=== PATIENT | female | born 1960 ===

== ENCOUNTER 2023-07-26 09:37 | Inpatient (IN) | payer MEDICARE ==
[~2023-07-26] VITALS: Ht 175.3 cm; Wt 106.9 kg
[2023-07-26] MEDS ORDERED: AMLO-250 PO (10:52)
[2023-07-26] MEDS ORDERED: SUCR1TAB PO (11:07)
[2023-07-26] MEDS ORDERED: LEVO125C4 PO (11:07)
[2023-07-26] MEDS ORDERED: PANT40TA2 PO (11:07)
[2023-07-26] MEDS ORDERED: PRD20T PO (11:07)
[2023-07-26] MEDS ORDERED: APIX5TAB PO (11:07)
[2023-07-26] MEDS ORDERED: ACHD5005 PO (11:07)
[2023-07-26] MEDS ORDERED: METO50TA7 PO (11:07)
[2023-07-26] MEDS ORDERED: SERT-413 PO (11:07)
[2023-07-26] MEDS ORDERED: MULT-1136 PO (11:07)
[2023-07-26] MEDS ORDERED: ROPI0.5T37 PO (11:07)
[2023-07-26 11:55] VITALS: BP 147/91
[2023-07-26] MEDS ORDERED: MELATONIN 3 MG TABLET PO PRN (12:00)
[2023-07-26] MEDS ORDERED: DOCUSATE SODIUM 100 MG CAPSULE PO PRN (12:00)
[2023-07-26] MEDS ORDERED: guaiFENesin/CODEINE 10ML UDC PO PRN (12:00)
[2023-07-26] MEDS ORDERED: CALCIUM CARBONATE 500 MG CHEW TABLET PO PRN (12:00)
[2023-07-26] MEDS ORDERED: ALPRAZolam 0.25 MG TABLET PO PRN (12:00)
[2023-07-26] MEDS ORDERED: BISACODYL 10 MG SUPPOSITORY PR PRN ×2 (12:00→12:15)
[2023-07-26] MEDS ORDERED: ONDANSETRON 4 MG ORAL DISSOLVE TABLET PO PRN (12:00)
[2023-07-26] MEDS ORDERED: LACTULOSE SYRUP 10GM/15ML 30ML UDC PO PRN (12:00)
[2023-07-26] MEDS ORDERED: diphenhydrAMINE 25 MG TABLET PO PRN (12:00)
[2023-07-26] MEDS ORDERED: LOPERAMIDE 2 MG CAPSULE PO PRN (12:00)
[2023-07-26] MEDS ORDERED: Sodium Phosphate/Sodium Biphosphate ADULT enema PR PRN (12:00)
--- NOTE | 2023-07-26 12:00 | PM&R Post Admission Assessment ---
PM&R HP Date of Visit: Jul 26, 2023 Time of Visit: 13:00 History of Present Illness Chief complaint: Severe weakness from exacerbation of CIDP with recent severe hyponatremia of 122 and elevated TSH of 22 and severe anemia requiring transfusion with A-fib HPI: This is a 63-year-old female with no primary care provider but she does see Dr. Horne neurologist in [place] who presented to [facility] on 07/18/2023 with severe weakness found to have hyponatremia of 122 and hypokalemia of 3.1 and anemia. TSH was found to be elevated at 22. She had a lengthy hospital course until insurance approval for inpatient rehab due to the fact that she lives at home alone but it is handicapped accessible housing. She has not had a BM for 9 days. She is very fearful of falling so she is self-limiting. She has maximum sit to stand and supervision for eating and grooming. She receives IVIG every 2 weeks and she does have a port placed. Her prior level of functioning is moving around with a rollator walker. We will need speech therapy for dysphagia. She does have a history of atrial fibrillation which was noted the day after admission. She maintains on oral anticoagulation. She did receive 1 unit of blood yesterday with good results. [facility] summary copied and pasted from Dr Alexandre: HTN (hypertension) ? Hypokalemia ? Weakness of both lower extremities ? Generalized muscle weakness ? Hyponatremia ? CIDP (chronic inflammatory demyelinating polyneuropathy) Resolved Hospital Problems Diagnosisl Date Resolved ? Confusion 07/26/2023 ? SVT (supraventricular tachycardia) 07/26/2023 Hospital Course: [place] 5[place] Jennifer SmallArial 5b is a [place] 5b 63 y[address] femaleArial 5b who was admitted to [facility] on [place] 3[facility] for evaluation and management ofworsening generalized weakness.Mrs. Small says that over the past two weeks her weakness of worsened. She says that she has generalized weakness however her legs are most weak. She has a history of CIDP and is currently receiving Immunoglobulin infusions for it. She says previously she has able to ambulate with a rolling walker but now she can no longer stand. She has had a lower back pain for the past two days but denies any recent trauma. She had alternating constipation and loose stools. She also have a long history of incontinence due to inability to sense the need to urinate. She denies any saddle anesthesia. She was seen in the ER and had a CT head that was negative. She was found to have a sodium of 122 and potassium of 2.5. she did admit to drinking a lot of ice tea. She will be admitted for continued treatments. 07/19: Patient is doing somewhat better unfortunately the patient has developed AF overnight. Also complaining of difficulty swallowing pills. No events overnight. 07/20: Cardiology consulted for new onset atrial fibrillation. Slight worsening of hyponatremia. We will continue with fluid restriction and start sodium chloride tablets. Repeat BMP tomorrow. Potassium repletion. 07/21: Relatively stable hemoglobin. Improvement in serum sodium and serum potassium. Improvement in breathing. Continue with oral prednisone at this time. Pending placement and insurance authorization. Wherever patient goes, she will require her IVIG infusion for 2 days which is every 2 weeks. 07/22: Improvement in patient's breathing. Improvement in serum sodium. Slightly downtrending hemoglobin for which I have ordered FOBT and lactulose to rule out occult GI bleed. Encourage patient to be more compliant with PT OT. 07/23: Uptrending hemoglobin. Slight improvement in serum sodium. Hypokalemia which was corrected by IV and oral repletion. IV repletion for hypomagnesemia. 07/24: O2 weaned down to 1 L. Patient is tolerating it well. Stable serum sodium. Uptrending hemoglobin. Later in the evening, I was notified through a phone call that her inpatient rehab insurance has been approved. Case management updated. 07/25: Patient is back to room air. Progressing well and in good spirits today. Anticipating discharge tomorrow for rehab. Updated the patient and family. 07/26: Stable and uptrending hemoglobin. Patient is feeling much better. She is on room air and has much improved appetite and outlook. Subsequently she was later discharged to rehab. Patient is to follow-up with PCP, cardiology, PT OT and urology. Repeat CBC and CMP at that time. Continue Eliquis for atrial fibrillation. I have discontinued aspirin due to increased risk of GI bleed given concomitant use of steroids and Eliquis. This was discussed with the patient. All of her questions were answered. Electrolytes were repleted before she left the facility so she is recommended to repeat CBC and CMP in 1 to 2 days. Discharge medications and new prescriptions: [address] Medication List START taking these medications [id number] mg Tablet, Delayed Release (E.C.) Commonly known as: PROTONIX Take 1 Tablet (40 mg) by mouth daily before breakfast. Signed by: Dr. Krystle Lozano MD Quantity: 30 Tablet Refills: 3 [id number] mg tablet Commonly known as: DELTASONE Take 2 Tablets (40 mg) by mouth daily with breakfast for 4 days, THEN 1.5 Tablets (30 mg) daily with breakfast for 4 days, THEN 1 Tablet (20 mg) daily with breakfast for 4 days, THEN 0.5 Tablets (10 mg) daily with breakfast for 4 days. Start taking on: July 26, 2023 Signed by: Dr. Krystle Lozano MD Quantity: 20 Tablet Refills: 0 [id number] mg/mL suspension Commonly known as: CARAFATE Take 10 mL (1 Gram) by mouth every 6 hours. Signed by: Dr. Krystle Lozano MD Quantity: 1200 mL Refills: 3 CONTINUE taking these medications amLODIPine5 mg tablet Commonly known as: NORVASC Take 1 Tablet (5 mg) by mouth daily. Signed by: Dr. Blane Noriega MD Quantity: 30 Tablet Refills: 11 apixaban5 mg tablet Commonly known as: ELIQUIS Take by mouth 2 times daily. Refills: 0 [id number]-[id number] mg tablet Commonly known as: NORCO Take 1 Tablet by mouth every 6 hours as needed for Pain, Moderate. Max Daily Amount: 4 Tablets Signed by: Dr. Michael Patel MD Quantity: 8 Tablet Refills: 0 [id number] mcg tablet Commonly known as: SYNTHROID Take 1 Tablet (125 mcg) by mouth daily in the morning. Signed by: Dr. Blane Noriega MD Quantity: 30 Tablet Refills: 11 metoprolol rasldnydj76 mg Extended Release 24 hour tablet Commonly known as: TOPROL XL Take 1 Tablet (50 mg) by mouth daily. Signed by: Dr. Blane Noriega MD Quantity: 30 Tablet Refills: 5 multivitamintablet Commonly known as: DAILY-PANCHO Take 1 Tablet by mouth daily. Refills: 0 rOPINIRole0.5 mg tablet Commonly known as: Requip Take 1 Tablet (0.5 mg) by mouth 3 times daily. Signed by: Dr. Blane Noriega MD Quantity: 90 Tablet Refills: 11 atwrqzlobb12 mg tablet Commonly known as: ZOLOFT Take 2 Tablets (100 mg) by mouth daily. Signed by: Dr. Blane Noriega MD Quantity: 60 Tablet Refills: 11 STOP taking these medications mg Tablet, Delayed Release (E.C.) Commonly known as: ECOTRIN EC ? CIDP (chronic inflammatory demyelinating polyneuropathy) ? Depression ? Difficult intravenous access ? Frequent urination at night ? Guillain Bray syndrome ? HTN (hypertension) ? Hyperlipidemia ? Stroke ? Tattoos ? Thyroid disease ? Uses walker ? Wears glasses HX CHOLECYSTECTOMY ? HX MULTIPLE TOOTH EXTRACTIONS ? HX PITUITARY SURGERY tumor removal ? HX THYROIDECTOMY ? MA INSJ TUNNELED CTR VAD W/SUBQ PORT AGE 3 YR/> Right 10/10/2019 CATHETER VENOUS ACCESS PLACEMENT RIGHT performed by Michael Patel MD at [facility] OR Past [id number] Hx Past Med/Social Hx: Reviewed Nursing Past Med/Soc Hx, Reviewed and Corrections made Patient Social History Marrital Status: Employed/Student: retired Alcohol Use: Denies Use Smoking Status: Former Smoker Past Medical History Cardiac: Atrial Fibrillation, High Cholesterol, Hypertension CIDP Gastrointestinal: Gastroesophageal Reflux Musculoskeletal: Arthritis, Fibromyalgia, Chronic Back Pain Endocrine: Hypothyroidsim Psychosocial: Sleep Difficulties PM&R Allergy/Meds/Data Review Allergies Coded Allergies: azithromycin (Verified Allergy, Unknown, 07/26/23) SWELLING nickel (Verified Allergy, Unknown, 07/26/23) TENDERNESS AND REDNESS Home Medications Scheduled Amlodipine Besylate (Amlodipine Besylate), 5 MG PO DAILY, (Reported) Apixaban (Eliquis), 5 MG PO BID, (Reported) Levothyroxine Sodium (Levothyroxine), 125 MCG PO DAILY @0600, (Reported) Metoprolol Succinate (Metoprolol Succinate), 50 MG PO DAILY, (Reported) Multivitamin (Multivitamin), 1 EACH PO DAILY, (Reported) Pantoprazole Sodium (Protonix), 40 MG PO DAILY @0600, (Reported) Ropinirole HCl (Ropinirole HCl), 0.5 MG PO TID, (Reported) Sertraline HCl (Sertraline HCl), 100 MG PO DAILY, (Reported) Sucralfate (Sucralfate), 1 GM PO Q6H, (Reported) Scheduled PRN Hydrocodone/Acetaminophen (Hydrocodone-Acetamin 5-325 mg), 1 TAB PO Q6H PRN for PAIN-MODERATE (5-7), (Reported) Miscellaneous Medications Prednisone (Prednisone), 0 PO, (Reported) Current Medications Current Medications Reviewed Review of Systems Constitutional: see HPI, malaise, weakness EENTM: no symptoms reported Respiratory: no symptoms reported Cardiovascular: no symptoms reported Gastrointestinal: constipation Genitourinary: incontinence Musculoskeletal: back pain, joint pain Skin: no symptoms reported Psychiatric/Neurological: Anxiety, Depressed All Other Systems Reviewed Negative Unless Noted: Yes Physical Exam Physical Exam Vital Signs Capillary Refill : Height, Weight, BMI Height: '" Weight: lbs. oz. kg; BMI Method: General Appearance: No Apparent Distress, WD/WN, Chronically ill, Obese Eyes: Bilateral Eye Normal Inspection, Bilateral Eye PERRL HEENT: PERRL/EOMI, Normal ENT Inspection, Pharynx Normal Neck: Full Range of Motion, Normal Inspection, Non Tender, Supple, Carotid Bruit Respiratory: Chest Non Tender, Lungs Clear, Normal Breath Sounds, No Accessory Muscle Use, No Respiratory Distress Cardiovascular: Regular Rate, Rhythm, No Edema, No Gallop, No JVD, No Murmur, Normal Peripheral Pulses Gastrointestinal: Normal Bowel Sounds, No Organomegaly, No Pulsatile Mass, Non Tender, Soft Back: Normal Inspection, No CVA Tenderness, No Vertebral Tenderness Extremity: Normal Capillary Refill, Normal Inspection, Normal Range of Motion (Except for weakness in the lower extremities), Non Tender, No Calf Tenderness, No Pedal Edema Neurologic/Psychiatric: Alert, Oriented x3, vehicle operator II-XII Norm as Tested, Abnormal Gait ( unable to ambulate), Depressed Affect, Motor Weakness ( lower extremities) Skin: Normal Color, Warm/Dry Lymphatic: No Adenopathy PM&R Medical Assessment & Plan REHAB/MEDICAL ASSESSMENT AND PLAN: REHAB IMPAIRMENT GROUP: Severe weakness from CIDP exacerbation ETIOLOGIC DIAGNOSIS: severe hyponatremia and hypokalemia and abnormal TSH The comorbidities that impact the patients function and/or functional outcome by: severe disability with CIDP receives IVIG every 2 weeks, fall risk, A-fib, hypothyroidism, electrolyte abnormality REHAB PLAN: The patient is being admitted to our comprehensive inpatient rehabilitation facility and can tolerate the intensity of service consisting of at least: 180 minutes of therapy a day, 5 out of 7 days a week Rehab treatment will consist of: PT and OT will focus on regaining function with use of assistive devices in order to regain function and stamina and ambulation and increase in ADLs The patient/family has a good understanding of our discharge process and will benefit from an interdisciplinary inpatient rehabilitation program. The patient has potential to make improvement and is in need of at least two of the following multidisciplinary therapies including but not limited to physical, occupational, speech, and prosthetics and orthotics. Additionally the patient will need services from respiratory, nutritional services, wound care, psychology, etc. (Customize this to each patient). Given the patients complex condition and risk of further medical complications, rehabilitation services cannot be safely or effectively provided at a lower level of care such as a jail facility. BARRIERS TO DISCHARGE: severe weakness unable to ambulate ESTIMATED LOS: 10 days DISPOSITION: home RELEVANT CHANGES SINCE PREADMISSION SCREENING: I have compared the patients medical and functional status at the time of the preadmission screening and there are: no changes PROGNOSIS: fair REHABILITATION GOALS: 1. PT and OT will focus on regaining function with use of assistive devices in order to regain function and stamina and ambulation and increase in ADLs All the above goals were reviewed with the patient and he/she is in agreement. By signing this document, I acknowledge that I have personally performed a full physical examination on this patient within 24 hours of admission to this inpatient rehabilitation facility and have determined the patient to be able to tolerate the above course of treatment at an intensive level for a reasonable period of time. I will be completing a detailed individualized Plan of Care for this patient by day #4 of the patients stay based upon the Preadmission Screen, the Post-Admission Evaluation, and the therapy evaluations. Admission Dx/Comorbidities: (1) CIDP (chronic inflammatory demyelinating polyneuropathy) ICD Codes: G61.81 - Chronic inflammatory demyelinating polyneuritis Assessment/Plan Assessment and Plan Assess & Plan/Chief Complaint Assessment: Severe weakness from CIDP exacerbation on prednisone taper dose and will receives IVIG every 2 weeks Chronic atrial fibrillation Anemia requiring transfusion on 07/25/2023 On oral anticoagulation for stroke prophylaxis Hypertension GERD Recent hyponatremia Recent hypokalemia Obesity Severe constipation no BM for 9 days upon arrival Plan: Bowel regimen PT and OT Home meds Prednisone taper dose Monitor closely KONG TY DO Jul 26, 2023 12:00
[2023-07-26] MEDS ORDERED: predniSONE 20 MG TABLET PO SCH (12:30)
[2023-07-26] MEDS ORDERED: LACTULOSE SYRUP 10GM/15ML 30ML UDC PO NR (12:30)
[2023-07-26] MEDS ORDERED: HYDROcodone/ACETAMINOPHEN 5 MG/325 MG TABLET PO PRN (12:30)
[2023-07-26] MEDS ORDERED: BISACODYL 10 MG SUPPOSITORY PR NR (12:30)
[2023-07-26] MEDS ORDERED: SENNA W/DOCUSATE TABLET PO NR (12:30)
[2023-07-26] MEDS: SUCRALFATE 1 GM TABLET PO SCH ×2 (14:11→19:14)
[2023-07-26] MEDS: rOPINIRole 0.25 MG TABLET PO SCH ×2 (14:12→20:52)
[2023-07-26 19:58] VITALS: BP 132/72
[2023-07-26] MEDS: DOCUSATE SODIUM 100 MG CAPSULE PO SCH (20:52)
[2023-07-26] MEDS: APIXABAN 5 MG TABLET PO SCH (20:52)
[2023-07-26] MEDS: SENNA W/DOCUSATE TABLET PO SCH (20:52)
[2023-07-27] MEDS: SUCRALFATE 1 GM TABLET PO SCH ×4 (00:29→17:10)
--- NOTE | 2023-07-27 05:26 | PM&R Progress Note ---
Subjective HPI/CC On Admission Date Seen by Provider: Jul 27, 2023 Time Seen by Provider: 10:30 Subjective/Events-last exam 07/27/2023: Patient doing a lot better No pain is reported No falls Weakness is profound Requesting team patch Miconazole powder will be initiated Review of Systems General: Fatigue, Malaise Gastrointestinal: Constipation Neurological: Weakness Objective Exam Vital Signs Vital Signs Date Time Temp Pulse Resp B/P (MAP) Pulse Ox O2 Delivery O2 Flow Rate FiO2 07/27/23 14:05 72 18 96 Room Air 07/27/23 12:32 0.00 07/27/23 08:31 36.1 110/72 (85) Capillary Refill : General Appearance: No Apparent Distress, WD/WN, Chronically ill, Obese HEENT: PERRL/EOMI, Normal ENT Inspection, Pharynx Normal Neck: Full Range of Motion, Normal Inspection, Non Tender, Supple, Carotid Bruit Respiratory: Chest Non Tender, Lungs Clear, Normal Breath Sounds, No Accessory Muscle Use, No Respiratory Distress Cardiovascular: Regular Rate, Rhythm, No Edema, No Gallop, No JVD, No Murmur, Normal Peripheral Pulses Gastrointestinal: Normal Bowel Sounds, No Organomegaly, No Pulsatile Mass, Non Tender, Soft Back: Normal Inspection, No CVA Tenderness, No Vertebral Tenderness Extremity: Normal Capillary Refill, Normal Inspection, Normal Range of Motion (Except for weakness in the lower extremities), Non Tender, No Calf Tenderness, No Pedal Edema Neurologic/Psychiatric: Alert, Oriented x3, national sales executive II-XII Norm as Tested, Abnormal Gait ( unable to ambulate), Depressed Affect, Motor Weakness ( lower extremities) Skin: Normal Color, Warm/Dry Lymphatic: No Adenopathy Results/Procedures Lab Laboratory Tests 07/27/23 06:15 Patient resulted labs reviewed. FIM Transfers Therapy Code Descriptions/Definitions Functional [place] Measure: 0=Not Assessed/NA 4=Minimal Assistance 1=Total Assistance 5=Supervision or Setup 2=Maximal Assistance 6=Modified [place] 3=Moderate Assistance 7=Complete IndependenceSCALE: Activities may be completed with or without assistive devices. 2-Zpxztcmiqe-sweegui completes the activity by him/herself with no assistance from a helper. 5-Set-up or Clean-up Assistance-helper sets up or cleans up; patient completes activity. [place] assists only prior to or following the activity. 4-Supervision or Touching Assistance-helper provides verbal cues and/or touching/steadying and/or contact guard assistance as patient completes activity. Assistance may be provided throughout the activity or intermittently. 3-Partial/Moderate Assistance-helper does LESS THAN HALF the effort. [place] lifts, holds or supports trunk or limbs, but provides less than half the effort. 2-Substantial/Maximal Assistance-helper does MORE THAN HALF the effort. [place] lifts or holds trunk or limbs and provides more than half the effort. 1-Gkqlrxwfn-rvydje does ALL the effort. Patient does none of the effort to complete the activity. Or, the assistance of 2 or more helpers is required for the patient to complete the activity. If activity was not attempted, code reason: 7-Patient Refused. 9-Not Applicable-not attempted and the patient did not perform the activity before the current illness, exacerbation or injury. 10-Not Attempted due to Environmental Limitations-(lack of equipment, weather restraints, etc.). 88-Not Attempted due to Medical Conditions or Safety Concerns. Assessment/Plan Assessment and Plan Assess & Plan/Chief Complaint Assessment: Severe weakness from CIDP exacerbation on prednisone taper dose and will receives IVIG every 2 weeks Chronic atrial fibrillation Anemia requiring transfusion on 07/25/2023 On oral anticoagulation for stroke prophylaxis Hypertension GERD Recent hyponatremia Recent hypokalemia Obesity Severe constipation no BM for 9 days upon arrival Resolved Plan: Bowel regimen PT and OT Home meds Prednisone taper dose Monitor closely 07/27/2023: Replace potassium Supportive care Fall risk (1) CIDP (chronic inflammatory demyelinating polyneuropathy) KONG TY DO Jul 27, 2023 05:26
[2023-07-27] MEDS: LEVOTHYROXINE 125 MCG TABLET PO SCH (06:40)
[2023-07-27] MEDS: PANTOPRAZOLE 40 MG TABLET PO SCH (06:40)
[2023-07-27] MEDS: THERAPEUTIC MULTIVITAMIN W/MINERALS TABLET PO SCH (06:41)
[2023-07-27 06:43] LABS: ALBUMIN 3.3 GM/DL (3.2-4.5); BILIRUBIN,TOTAL 0.6 MG/DL (0.1-1.0); CREATININE SERUM 0.86 MG/DL (0.60-1.30); POTASSIUM 3.3 MMOL/L (3.6-5.0); TOTAL PROTEIN 8.6 GM/DL (6.4-8.2)
[2023-07-27 06:49] LABS: BASOPHILS % (AUTO) 0 % (0-10); EOSINOPHILS % (AUTO) 1 % (0-10); HEMATOCRIT 33 % (35-52); LYMPHOCYTES # (AUTO) 1.7 10^3/uL (1.0-4.0); LYMPHOCYTES % (AUTO) 26 % (12-44); MEAN CORPUSCULAR HEMOGLOBIN 33 pg (25-34); MEAN CORPUSCULAR HGB CONC 34 g/dL (32-36); MEAN CORPUSCULAR VOLUME 97 fL (80-99); MEAN PLATELET VOLUME 9.3 fL (9.0-12.2); MONOCYTES # (AUTO) 0.4 10^3/uL (0.0-1.0); MONOCYTES % (AUTO) 6 % (0-12); NEUTROPHILS # (AUTO) 4.3 10^3/uL (1.8-7.8); NEUTROPHILS % (AUTO) 66 % (42-75); PLATELET COUNT 204 10^3/uL (130-400); WHITE BLOOD COUNT 6.4 10^3/uL (4.3-11.0)
[2023-07-27 08:31] VITALS: BP 110/72
[2023-07-27] MEDS: SENNA W/DOCUSATE TABLET PO SCH ×2 (08:40→21:03)
[2023-07-27] MEDS: rOPINIRole 0.25 MG TABLET PO SCH ×3 (08:40→21:03)
[2023-07-27] MEDS: amLODIPine 5 MG TABLET PO SCH (08:40)
[2023-07-27] MEDS: DOCUSATE SODIUM 100 MG CAPSULE PO SCH ×2 (08:41→21:03)
[2023-07-27] MEDS: APIXABAN 5 MG TABLET PO SCH ×2 (08:41→21:03)
[2023-07-27] MEDS: ACETAMINOPHEN 325 MG TABLET PO PRN ×2 (08:46→17:10)
[2023-07-27] MEDS: SERTRALINE 50 MG TABLET PO SCH (08:46)
--- NOTE | 2023-07-27 10:42 | Occupational Therapy Eval ---
OT Evaluation-General/PLF Medical Diagnosis Admission Date Jul 26, 2023 at 11:50 Medical Diagnosis: AE CIPD Onset Date: Jul 17, 2023 Therapy Diagnosis Therapy Diagnosis: decreased ADL status Precautions Precautions/Isolations: Fall Prevention, Standard Precautions, Pressure Ulcer Referral Physician: Kanwal Blair Reason: Evaluation/Treatment Medical History Additional Medical History Afib, HTN, hyponatremia, CIPD, depression, guillain barre syndrome, HLD, pituitary tumor removal, thyroidectomy Current History 07/17/23 admitted to OSH with increased weakness x2 weeks. Pt transferred to [facility] 07/26/23 Social History Home: Single Level Current Living Status: Alone Entry Into Home: Level Entry ADL-Prior Level of Function SCALE: Activities may be completed with or without assistive devices. 5-Qjgtbksnhx-vyuegbo completes the activity by him/herself with no assistance from a helper. 5-Set-up or Clean-up Assistance-helper sets up or cleans up; patient completes activity. [place] assists only prior to or following the activity. 4-Supervision or Touching Assistance-helper provides verbal cues and/or touching/steadying and/or contact guard assistance as patient completes activity. Assistance may be provided throughout the activity or intermittently. 3-Partial/Moderate Assistance-helper does LESS THAN HALF the effort. [place] lifts, holds or supports trunk or limbs, but provides less than half the effort. 2-Substantial/Maximal Assistance-helper does MORE THAN HALF the effort. [place] lifts or holds trunk or limbs and provides more than half the effort. 2-Lsloupnem-fcnqwu does ALL the effort. Patient does none of the effort to complete the activity. Or, the assistance of 2 or more helpers is required for the patient to complete the activity. If activity was not attempted, code reason: 7-Patient Refused. 9-Not Applicable-not attempted and the patient did not perform the activity before the current illness, exacerbation or injury. 10-Not Attempted due to Environmental Limitations-(lack of equipment, weather restraints, etc.). 88-Not Attempted due to Medical Conditions or Safety Concerns. ADL PLOF Comments Pt reports having assistance from friend 2x/day, and home health for IV every 2 weeks. She primarily stays in her lift chair during day and night. She feels like she has became progressively weaker over the last ~7 weeks, having increased difficulty ambulating. Pt unable to make it into bathroom due to urgency and incontinence of bowel/bladder. She wears a diaper and sits on towels. After incontinent episode, pt indicates she can clean and change herself. Pt doesn't complete footwear herself, requiring total assist with socks/shoes. She only wears shoes when she goes to appointments and her friend puts them on for her. She wears long nightgowns that she is able to change herself. Pt indicates she hasn't had an appetite for some time, so she hasn't been preparing meals at home, but is able to drink ensure and protein drinks that people bring her. She only completes sponge baths at her chair due to fear of falling and difficulty getting into bathroom. Prior to ~7 weeks ago, pt was able to use 4WW around house. She owns a light weight manual w/c but has difficulty managing it on her carpet. She has used the w/c in the kitchen while cooking. She has a scooter but hasn't used it for a while. The friend that comes over 2x/day typically helps with trash, washing soiled towels, walking dog, footwear and providing pt with ensure/protein drinks. Pt eventually would like to be able to get into her shower at home, it is a walk in shower with small built in seat. Pt has a tall toilet with handles. Self Care: Needed Some Help Functional Cognition: Independent DME/Equipment Comments lift chair, light weight manual w/c, 4WW, scooter, reachers, toilet riser with handles OT Current Status Subjective Pt agreeable to OT Tx. States she didn't have much therapy at the other hospital since she wasn't motivated. Pt appears motivated to get better and states goals of returning home and eventually getting into her shower at home again instead of sponge baths. Mental Status/Objective Patient Orientation: Person, Place, Situation Current Glasses/Contacts: Yes Hearing Aids: No Dentures/Partials: No Hand Dominance: Right Upper Extremity ROM BUE shoulder flexion to approx 140 degrees, WFL at elbows/wrist/fingers. Pt reports increased tightness in b/l shoulder blades with bringing arms out in front of her in midline position/horizontal adduction. Upper Extremity Coordination WFL Upper Extremity Sensation Pt reports "random" sensation changes in UEs Upper Extremity Strength grossly 3-/5 ADL-Treatment Eating (QC): 5 Oral Hygiene (QC): 4 (SBA seated at sink. 1VC for initiation of task.) Shower/Bathe Self (QC): 1 (sit to stand lift required for performing pericare/posterior hygiene. ) Upper Body Dressing (QC): 3 Lower Body Dressing (QC): 1 (Sit to stand lift required for pant hike. Dependent at bed level.) On/Off Footwear (QC): 1 Toileting Hygiene (QC): 1 (Dependent at bed level. sit to stand lift would be required if pt is up in chair.) Other Treatments Pt in bed, agreeable to OT evaluation. Pt provided information about PLOF and home set up and participated in UE Screen. Post eval, pt in bed, call light in reach and all needs met. Education OT Patient Education: Correct positioning, Modified ADL techniques, Progress toward Goal/Update tx plan, Purpose of tx/functional activities, Rehab process Teaching Recipient: Patient Teaching Methods: Discussion Response to Teaching: Verbalize Understanding BIMS CAM BIMS Expression of Ideas and Wants: Without Difficulty Understanding Verbal Content: Understands Brief Interview/Mental Status: Yes IRF KATE BIMS: IRF KATE BIMS Response (Comments) Value Repitition of Three Words Three 3 Recalls Socks Yes, No Cue Required 2 Recalls Blue Yes, No Cue Required 2 Recalls Bed Yes, After Cueing 1 Year Correct 3 Month Missed by 6 Days/1 Month 1 Day Correct 1 Total 13 Should Staff Asses[address] Mental [address] No CAM Mental Status Change/Baseline: 0 Inattention: 0 Disorganized thinkin Altered level of consciousness: 0 OT Short Term Goals Short Term Goals Time Frame: Aug 12, 2023 Shower/bathe self: 3 Upper body dressin Lower body dressin OT Sales Rep Goals Sales Rep Goals Time Frame: Aug 21, 2023 Eating (QC): 6 Oral Hygiene (QC): 6 Toileting Hygiene (QC): 6 Shower/Bathe Self (QC): 5 Upper Body Dressing (QC): 5 Lower Body Dressing (QC): 5 On/Off Footwear (QC): 3 Additional Goals: 1-Demonstrate ADL Tasks, 2-Verbalize Understanding, 3- ImproveStrength/Pepe 1=Demonstrate adherence to instructed precautions during ADL tasks. 2=Patient will verbalize/demonstrate understanding of assistive devices/modifications for ADL. 3=Patient will improve strength/tolerance for activity to enable patient to perform ADL's. OT Education/Plan Problem List/Assessment Assessment: Decreased Activ Tolerance, Decreased UE Strength, Impaired Funct Balance, Impaired I ADL's, Impaired Self-Care Skills Discharge Recommendations Plan/Recommendations: Continue POC Equpiment Recommendations-D/C: Bath Chair, Bedside Commode Treatment Plan/Plan of Care Patient would benefit from OT for education, treatment and training to promote independence in ADL's, mobility, safety and/or upper extremity function for ADL's. Plan of Care: ADL Retraining, Functional Mobility, Group Exercise/Act as Ind, UE Funct Exercise/Act Treatment Duration: Aug 21, 2023 Frequency: At least 5 of 7 days/Wk (IRF) Estimated Hrs Per Day: 1 hour per day Agreement: Yes Rehab Potential: Fair Time Start Time: 07:30 Stop Time: 08:00 DATE: Jul 27, 2023 Total Time Billed (hr/min): 30 Billed Treatment Time 1ANDRE ADDISON OT Jul 27, 2023 10:42
[2023-07-27] MEDS: NICOTINE 21 MG PATCH TD SCH (12:05)
--- NOTE | 2023-07-27 13:02 | Physical Therapy Evaluation ---
PT Evaluation-General Medical Diagnosis Admission Date Jul 26, 2023 at 11:50 Medical Diagnosis: Acute exacerbation of Chronic Inflammatory Demyelinating Polyneuropathy Onset Date: Jul 17, 2023 Therapy Diagnosis Therapy Diagnosis: proximal weakness, impaired transfers/upright mobility, endurance deficits Precautions Precautions/Isolations: Fall Prevention, Standard Precautions, Pressure Ulcer Weight Bear Status Weight Bearing/Tolerated Weight Bearing/Tolerated Referral Physician: Kanwal Reason for Referral: Evaluation/Treatment Medical History Additional Medical History hx of CIDP - receives immunoglabulin infusions. Incontinent of bowel/bladder at PLOF. Depression, yponatremia, anemia, metabolic encephalopathy, Afib, Guillain [place] Syndrome, HTN, HLD CVA, thyroid disease. PSH: cholecystectomy, pituitary tumor removal, thyroidectomy. Social History Home: Single Level Current Living Status: Alone Entry Into Home: Level Entry PT Steps Into Home: 0 PT Steps Inside Home: 0 Prior Prior Level of Function SCALE: Activities may be completed with or without assistive devices. 0-Omvcwabehg-ziasaae completes the activity by him/herself with no assistance from a helper. 5-Set-up or Clean-up Assistance-helper sets up or cleans up; patient completes activity. [place] assists only prior to or following the activity. 4-Supervision or Touching Assistance-helper provides verbal cues and/or touching/steadying and/or contact guard assistance as patient completes activity. Assistance may be provided throughout the activity or intermittently. 3-Partial/Moderate Assistance-helper does LESS THAN HALF the effort. [place] lifts, holds or supports trunk or limbs, but provides less than half the effort. 2-Substantial/Maximal Assistance-helper does MORE THAN HALF the effort. [place] lifts or holds trunk or limbs and provides more than half the effort. 5-Nmnyegaqp-fkblhm does ALL the effort. Patient does none of the effort to complete the activity. Or, the assistance of 2 or more helpers is required for the patient to complete the activity. If activity was not attempted, code reason: 7-Patient Refused. 9-Not Applicable-not attempted and the patient did not perform the activity before the current illness, exacerbation or injury. 10-Not Attempted due to Environmental Limitations-(lack of equipment, weather restraints, etc.). 88-Not Attempted due to Medical Conditions or Safety Concerns. Bed Mobility: 6 Transfers (B,C,W/C): 6 Gait: 6 (short household distances only (50' or less with 4WW). ) Stairs: 9 (States unable to go up even a curb, even with assist of her friend who takes her to appointments.) Wheelchair Mobility: 6 (in lightweight w/c in her home. Has motorized scooter for community mob.) Indoor Mobility (Ambulation): Independent Stairs: Dependent Prior Devices Use: Manual wheelchair, Mechanical lift, Motorized scooter, Walker Prior Device Use: Has a crocodile farmer and tall toilet. States she probably needs a B SC. Patient states she lives in her lift chair (including sleeping). Has not showered in 2 years - takes sponge baths. She states she typically only wears socks; she does not wear shoes because she cannot put them on (dependent with help of friend for [address] [employer] Clerk shoes). She states she does not drive and a friend takes her to all appointments. Her friend comes over 2x/day - helps with laundry and helps take care of patient's dog. PT Evaluation-Current Subjective Patient asking if she can get a lift chair in her room - this therapist switched out recliner for lift chair at patient's request. Stated she had 8.5/10 (L) thigh pain prior to PT - nsg had just given pain medication. Pain Section J - Health Conditions 1. Rarely or not at all 2. Occasionally 3. Frequently 4. Almost constantly 8. Unable to answer Pain Effect on Sleep: 1 Pain Interference with Therapy: 1 Pain Interference w/Day-to-Day: 1 Pt/Family Goals Patient hopes to return to her previous living situation of living along with assist of friend as needed. Objective Patient Orientation: Person, Place Attachments: Oxygen (1L per nc) ROM/Strength ROM Upper Extremities Deferred to OT ROM Lower Extremities Ankle/knee AROM WFL. Hip PROM/AAROM WFL. Strength Upper Extremities Deferred to OT Strength Lower Extremities (B) Ankle DF 4/5. Ankle PF 4/5. Hip abd/add 3/5 (B). Hip flexor weakness of 2- /5 (B) in supine and sitting. Quads 2-/5 (B) in supine and sitting. Core weakness noted sitting EOB - required (B) UE support in sitting. Unable to activate hip extensors/back extensors to come into standing -- proximal weakness. Integumentary/Posture Bowel Incontinence: Yes Bladder Incontinence: Yes Sensory Vision: Wears Glasses Hearing: Functional Hand Dominance: Right Sensation Right Lower Extremit: Impaired Sensation Left Lower Extremity: Impaired Sensation Lower Extremities Patient states she has numbness from toes up to midshin (B) LE's. Transfers Roll Left & Right (QC): 4 (SBA-CGA with cues to use bedrail and push with opposite LE) Sit to Lying (QC): 2 (Max (A) of 1) Lying to Sitting/Side of Bed(Q: 2 (Max (A) of 1) Sit to Stand (QC): 1 (Sit>stand lift utilized /c (A) of 2. ) Chair/Ivt-fr-Ppsid Xfer(QC): 1 (using sit>stand lift) Toilet Transfer (QC): 88 Car Transfer (QC): 88 Gait Does the Patient Walk?: No and Walking Goal IS indicated Mode of Locomotion: Both Anticipated Mode of Locomotion: Both Walk 10 feet (QC): 88 Walk 50 ft with 2 Turns(QC): 88 Walk 150 ft (QC): 88 Walking 10ft/uneven surface-QC: 88 Distance: unable to ambulate at this time Wheelchair Training Does the Pt Use a Wheelchair?: Yes Distance: 60' x 2 Wheel 50 ft with 2 turns (QC): 4 (cues to navigating tight turns, O2 tank assist.) Wheel 150 ft (QC): 88 (fatigue does not allow for 150' distance.) Type of Wheelchair: Manual propels manual w/c using (B) UE's. Portable O2 tank assist. W/C cushion in seat. Mild SOB requiring rest break /p 60'. O2 sats 96-98% on 1L O2. Stairs 1 Step (curb) (QC): 88 4 Steps (QC): 9 12 Steps (QC): 9 Balance Sitting Static: Fair Sitting Dynamic: Poor Standing Static: Poor Standing Dynamic: Poor Picking up an Object (QC): 88 Special Test Comments KU Standing Balance Scale: 0/5 KU Sitting Balance Scale: 2/5 Treatment Standing lift utilized x 2 for transfer bed>w/c and w/c to lift chair. Assessment/Needs 63 year old female with Chronic Inflammatory Demyelinating Polyneuropathy. Also has hx of Guillain Wind[place], CVA. Her PLOF = min (A) with some ADL's. Has significant mobility deficits at this time and requires a mechanical lift for transfers and a w/c for mobility. Has significant LE and proximal core weakness. Is a significant fall risk at this time. Patient would benefit from ARU therapy interventions to maximize her strength/endurance/functional mobility and safety to improve functional independence and return to her prior living situation at as high a functional level as possible. . Rehab Potential: Fair Post Rehab Potential-Barriers: possible need skilled caregiver Equipment Needs TBD PT Correction Goals Correction Goals PT Correction Goals Time Frame: Aug 17, 2023 Roll Left to Right (QC): 6 (in bed or recliner) Sit to Lying (QC): 6 (in bed or recliner.) Lying-Sitting on Side/Bed(QC): 4 Sit to Stand (QC): 4 Chair/Kuy-cv-Zrjmt Xfer(QC): 4 Toilet/Commode Transfer (QC): 4 Car Transfer (QC): 4 Does the Patient Walk: No and Walking Goal IS indicated Walk 10 feet (QC): 4 (with FWW or 4WW) Walk 10ft-Uneven Surface(QC): 4 Walk 50ft with 2 Turns (QC): 4 Walk 150 ft (QC): 9 Does the Pt use WC or Scooter?: Yes Wheel 50 feet with 2 turns (QC: 6 Type: Manual Wheel 150 feet: 6 Type: Motorized 1 Step (curb) (QC): 3 4 Steps (QC): 9 12 Steps (QC): 9 Picking up an Object (QC): 4 PT Plan Problem List Problem List: Activity Tolerance, Functional Strength, Safety, Balance, Gait, Transfer, Bed Mobility, ROM, Other (W/C mobility) Treatment/Plan Treatment Plan: Continue Plan of Care Treatment Plan: Bed Mobility, Education, Functional Activity Pepe, Functional Strength, Group Therapy, Gait, Safety, Therapeutic Exercise, Transfers, Other (W/C mobility) Treatment Duration: Aug 17, 2023 Frequency: At least 5 of 7 days/Wk (IRF) Estimated Hrs Per Day: 1.5 hours per day Safety Risks/Education Patient Education: Transfer Techniques Teaching Recipient: Patient Teaching Methods: Demonstration Response to Teaching: Reinforcement Needed Discharge Recommendations Target Placement TBD Time Time In: 900 Time Out: 1030 DATE: Jul 27, 2023 Total Billed Treatment Time: 90 Total Billed Treatment 9-9:30 EMV 9:30-10:30 co-treat with OT -- 3FA, 1W/C Esther Azevedo PT Jul 27, 2023 13:02
--- NOTE | 2023-07-27 13:16 | Occupational Ther Daily Note ---
OT Current Status-Daily Note Subjective Pt agreeable to therapy tx. She states she wants to get better to return home. Mental Status/Objective Attachments: Oxygen (1L NC) ADL-Treatment Therapy Code Descriptions/Definitions Functional [place] Measure: 0=Not Assessed/NA 4=Minimal Assistance 1=Total Assistance 5=Supervision or Setup 2=Maximal Assistance 6=Modified [place] 3=Moderate Assistance 7=Complete IndependenceSCALE: Activities may be completed with or without assistive devices. 7-Wglajpvfek-uunltak completes the activity by him/herself with no assistance from a helper. 5-Set-up or Clean-up Assistance-helper sets up or cleans up; patient completes activity. [place] assists only prior to or following the activity. 4-Supervision or Touching Assistance-helper provides verbal cues and/or touching/steadying and/or contact guard assistance as patient completes activity. Assistance may be provided throughout the activity or intermittently. 3-Partial/Moderate Assistance-helper does LESS THAN HALF the effort. [place] lifts, holds or supports trunk or limbs, but provides less than half the effort. 2-Substantial/Maximal Assistance-helper does MORE THAN HALF the effort. [place] lifts or holds trunk or limbs and provides more than half the effort. 7-Qqdxtavnv-rmnrea does ALL the effort. Patient does none of the effort to comp lete the activity. Or, the assistance of 2 or more helpers is required for the patient to complete the activity. If activity was not attempted, code reason: 7-Patient Refused. 9-Not Applicable-not attempted and the patient did not perform the activity before the current illness, exacerbation or injury. 10-Not Attempted due to Environmental Limitations-(lack of equipment, weather restraints, etc.). 88-Not Attempted due to Medical Conditions or Safety Concerns. Other Treatment OT/PT cotreat due to skill of 2 clinicians required which a vocational rehabilitation teacher could not perform in order to coordinate UE/LEs, decrease fall risk, and due to pt's limitations in strength, activity tolerance, mobility, and transfers. OT focused on UE placement, cues for sequencing and safety and ADLs, PT focused on LE placement, gross overall movement, transfers and mobility. Pt rolled in bed to remove purewick and complete posterior hygiene, dependent with toilet hygiene and clothing management. Pt transferred supine to sit EOB, attempted to stand at FWW, unsuccessfully. Sit to stand lift utilized to transfer from EOB to w/c. Pt propelled w/c around [facility] common area, 60' x2, she indicates she fatigues quickly requiring rest break. Pt returned to her room, completing sponge bath and grooming seated in w/c. Pt required total assist with sponge bath, sit to stand lift used to wash buttocks, total assist footwear and total assist LE dressing. SBA oral care. sit to stand lift utilized to transfer from w/c to recliner. Post tx, pt in recliner, call light in reach and all needs met. Education OT Patient Education: Correct positioning, Energy conservation, Modified ADL techniques, Progress toward Goal/Update tx plan, Purpose of tx/functional acti vities, Rehab process Teaching Recipient: Patient Teaching Methods: Discussion Response to Teaching: Verbalize Understanding OT Short Term Goals Short Term Goals Time Frame: Aug 12, 2023 Shower/bathe self: 3 Upper body dressin Lower body dressin OT Correction Goals Clerk Of Court Goals Time Frame: Aug 21, 2023 Acute change in mental status: 0 Inattention: 0 Disorganized thinkin Altered level of consciousness: 0 Eating (QC): 6 Oral Hygiene (QC): 6 Toileting Hygiene (QC): 6 Shower/Bathe Self (QC): 5 Upper Body Dressing (QC): 5 Lower Body Dressing (QC): 5 On/Off Footwear (QC): 3 Additional Goals: 1-Demonstrate ADL Tasks, 2-Verbalize Understanding, 3-Imp roveStrength/Pepe 1=Demonstrate adherence to instructed precautions during ADL tasks. 2=Patient will verbalize/demonstrate understanding of assistive devices/modifications for ADL. 3=Patient will improve strength/tolerance for activity to enable patient to perform ADL's. OT Education/Plan Problem List/Assessment Assessment: Decreased Activ Tolerance, Decreased UE Strength, Impaired Funct Balance, Impaired I ADL's, Impaired Self-Care Skills Discharge Recommendations Plan/Recommendations: Continue POC Treatment Plan/Plan of Care Patient would benefit from OT for education, treatment and training to promote independence in ADL's, mobility, safety and/or upper extremity function for ADL's. Plan of Care: ADL Retraining, Functional Mobility, Group Exercise/Act as Ind, UE Funct Exercise/Act Treatment Duration: Aug 21, 2023 Frequency: At least 5 of 7 days/Wk (IRF) Estimated Hrs Per Day: 1 hour per day Agreement: Yes Rehab Potential: Fair Time Start Time: 09:30 Stop Time: 10:30 DATE: Jul 27, 2023 Total Time Billed (hr/min): 60 Billed Treatment Time cotreat x60' 1, FA 2 (30'), ADL 2 (30') ROHITH BLANTON OT Jul 27, 2023 13:16
[2023-07-27] MEDS ORDERED: IMMU10VI10 IJ (14:23)
[2023-07-27] MEDS ORDERED: IMMU40VI IJ (14:23)
[2023-07-27] MEDS: MICONAZOLE 2% POWDER 90 GM TOP SCH ×2 (14:48→21:05)
[2023-07-27 20:41] VITALS: BP 132/76
[2023-07-28] VITALS (9 sets, daily range): BP systolic 76–135; BP diastolic 49–83
[2023-07-28] MEDS: SUCRALFATE 1 GM TABLET PO SCH ×4 (00:35→18:15)
--- NOTE | 2023-07-28 05:02 | Individualized Plan of Care ---
Individualized Plan of Care Rehab Nursing IPOC Order Admission Date Jul 26, 2023 at 11:50 Current Orders Orders Follow-Up Appointment (07/26/23 11:14) Admission Arrival Bed Request (07/26/23 11:49) Admission Order(Inpt,Obs,Sdc) (07/26/23 11:58) Vital Signs: Per Unit Policy ( 08,16,00 (07/26/23 11:58) Sharad Hose 09,21 (07/26/23 11:58) Sequential Compression Device [id number] (07/26/23 11:58) Photo Specialist-Inpt Rehab Con (07/26/23 11:58) Rehab Nursing Orders-Ipoc (07/26/23 11:58) Physical Therapy Rehab Orders (07/26/23 11:58) Occupational Therapy Rehab Ord (07/26/23 11:58) Speech Therapy Rehab Orders (07/26/23 11:58) Cbc With Automated Diff (07/27/23 06:00) Comprehensive Metabolic Panel (07/27/23 06:00) Precautions (Aru) (07/26/23 11:58) Weekly Weight WEEK (07/26/23 11:58) Rehab-Intensity Of Therapy (07/26/23 11:58) Initiate Admission Nursing Pro .admission (07/26/23 11:58) Alprazolam Tablet (Alprazolam Tablet) (07/26/23 12:00) Calcium Carbonate Chew Tablet (Calcium C (07/26/23 12:00) Diphenhydramine Tablet (Diphenhydramine (07/26/23 12:00) Docusate Sodium Capsule (Docusate Sodium (07/26/23 21:00) Docusate Sodium Capsule (Docusate Sodium (07/26/23 12:00) Bisacodyl Suppository (Bisacodyl Supposi (07/26/23 12:00) Lactulose Oral Solution (Enulose Oral So (07/26/23 12:00) Na Phos/Na Biphos Adult Enema (Na Phos/N (07/26/23 12:00) Guaifenesin/Codeine Syrup (Guaifenesin/C (07/26/23 12:00) Loperamide Capsule (Loperamide Capsule) (07/26/23 12:00) Melatonin Tablet (Melatonin Tablet) (07/26/23 12:00) Polyethylene Glycol Powder (Polyethylen (07/26/23 21:00) Ondansetron Oral Dissolve Tab (Ondanset (07/26/23 12:00) Senna W/Docusate Tablet (Senna W/Docusat (07/26/23 21:00) Acetaminophen Tablet (Acetaminophen Ta (07/26/23 12:00) Initiate Admission Nursing Pro .admission (07/26/23 11:58) Code/Resuscitation (07/26/23 11:58) Bisacodyl Suppository (Bisacodyl Supposi (07/26/23 12:30) Bisacodyl Suppository (Bisacodyl Supposi (07/26/23 12:15) Lactulose Oral Solution (Enulose Oral So (07/26/23 12:30) Senna W/Docusate Tablet (Senna W/Docusat (07/26/23 12:30) General/Regular (07/26/23 Lunch) Amlodipine Tablet (Amlodipine Tablet) (07/27/23 09:00) Apixaban Tablet (Apixaban Tablet) (07/26/23 21:00) Hydrocodone/Apap 5/325 Tablet (Hydrocod (07/26/23 12:30) Metoprolol Succinate (Xl) Tab (Metoprolo (07/27/23 09:00) Pantoprazole Tablet (Pantoprazole Tablet (07/27/23 06:00) Prednisone Tablet (Prednisone Tablet) (07/26/23 12:30) Sertraline Tablet (Sertraline Tablet) (07/27/23 09:00) Sucralfate Tablet (Sucralfate Tablet) (07/26/23 12:30) Multivitamin W/Mineral Tablet (Multivita (07/27/23 07:00) Ropinirole Tablet (Ropinirole Tablet) (07/26/23 13:00) Levothyroxine Tablet (Levothyroxine Tabl (07/27/23 06:30) Nicotine Patch (Nicotine Patch) (07/27/23 09:00) Miconazole 2% Powder (Miconazole 2% Powd (07/27/23 09:00) Patch Removal (Patch Removal) (07/28/23 08:59) Patient Visit (07/27/23 ) Pt Eval Moderate Complexity (07/27/23 ) Functional Activities, Ea 15 (07/27/23 ) Wheelchair Mgmt/Propulsn 15min (07/27/23 ) Potassium Chloride (Tablet) (Potassium C (07/28/23 09:00) Cbc With Automated Diff (07/28/23 09:14) Comprehensive Metabolic Panel (07/28/23 09:14) Chest 1 View, Ap/Pa Only (07/28/23 09:14) Arterial Blood Gas (07/28/23 09:14) (Nf) Immune Glob,Anisa Caprylate(Igg) (Anisa (07/28/23 09:45) (Nf) Immune Glob,Anisa Caprylate(Igg) (Anisa (07/28/23 09:45) Immune Globulin,Gamma (Immune Globulin,G (07/30/23 09:00) Immune Globulin,Gamma (Immune Globulin,G (07/30/23 11:00) Immune Globulin,Gamma (Immune Globulin,G (07/31/23 09:00) Immune Globulin,Gamma (Immune Globulin,G (07/31/23 11:00) Arterial Blood Draw - Obtain (07/28/23 ) Potassium Bicarb/Cit Acid Tab (Potassium (07/28/23 10:15) Ensure Hi Protein Variety (07/28/23 12:09) Patient Visit (07/28/23 ) Exercise Therap, Ea 15 Min (07/28/23 ) Rehab Nursing Orders: Ongoing Assess. of Cognitive Status, Ongoing Assess. of Function Status, Bladder Management, Bladder Scan, Bladder Training, Bowel M anagement, Bowel Training, Disease Management & Educaiton, DVT Prophylaxis, Fall Prevention, Fluid/Electrolyte/Nutrition Mgmt, Infection Prevention, Medication Management & Education, Management of Risks & Complications, Management of Skin Intergrity, Nutrition Management, Pain Management, Patient/Family Support, Wound Management Intensity of Therapy to be met Patient to be seen: Min.3h per day/5 of 7d PT IPOC Problem List: Activity Tolerance, Functional Strength, Safety, Balance, Gait, Transfer, Bed Mobility, ROM, Other (W/C mobility) Treatment Plan: Continue Plan of Care Bed Mobility, Education, Functional Activity Pepe, Functional Strength, Group Therapy, Gait, Safety, Therapeutic Exercise, Transfers, Other (W/C mobility) Treatment Duration: Aug 17, 2023 Frequency: At least 5 of 7 days/Wk (IRF) Estimated Hrs Per Day: 1.5 hours per day OT IPOC Problems: Decreased Activ Tolerance, Decreased UE Strength, Impaired Funct Balance, Impaired I ADL's, Impaired Self-Care Skills OT Treatment, Training and Edu: Yes Plan of Care: ADL Retraining, Functional Mobility, Group Exercise/Act as Ind, UE Funct Exercise/Act Treatment Duration: Aug 21, 2023 Frequency: At least 5 of 7 days/Wk (IRF) Estimated Hrs Per Day: [address] IPOC Speech Therapy Treatment Plan: Discontinue ST Treatment Duration: Jul 27, 2023 Frequency: Modified Program (IRF) Estimated Hrs Per Day: Other Photo Specialist/Case Mgmt Photo Specialist/Case Managemen: Discharge Planning Dietitian/Crop Quantitative Geneticist Dietitian/Crop Quantitative Geneticist to monitor nutritional status and make changes and/or recommendations as needed and work with speech pathology on dietary upgrades as the occur. Physician IPOC Medical Issues being managed closely and that require the 24 hour availability of a physician: Recent CIDP flare causing polyneuropathy will require close monitoring for decompensation and will need BP and O2 monitoring for any decline in function Medical Issues: Bowel/Bladder Function, DVT Prophylaxis, Falls Precautions, Fluid/Electrolyte/Nutrition Balance, Infection Protection, Pain Management, Weight Bearing Precautions Brief Synthesis of Preadmission Screen, Post-Admission Evaluation, and Therapy Evaluations: PT OT will focus on regaining function with use of AD in order to regain stamina and ambulation with increased ADL's independence Medical Prognosis: Good Anticipated Length of Stay: 10 days KONG TY DO Jul 28, 2023 05:02
--- NOTE | 2023-07-28 05:03 | PM&R Progress Note ---
Subjective HPI/CC On Admission Date Seen by Provider: Jul 28, 2023 Time Seen by Provider: 09:00 Subjective/Events-last exam 07/28/2023: Doing well until hypotensive and hypoxic this am No falls Very weak BM+ 07/27/2023: Patient doing a lot better No pain is reported No falls Weakness is profound Requesting team patch Miconazole powder will be initiated Review of Systems General: Fatigue, Malaise Objective Exam Vital Signs Vital Signs Date Time Temp Pulse Resp B/P (MAP) Pulse Ox O2 Delivery O2 Flow Rate FiO2 07/28/23 20:05 36.2 66 16 94/65 (75) 98 Nasal Cannula 07/28/23 14:12 2.00 Capillary Refill : General Appearance: No Apparent Distress, WD/WN, Chronically ill, Obese HEENT: PERRL/EOMI, Normal ENT Inspection, Pharynx Normal Neck: Full Range of Motion, Normal Inspection, Non Tender, Supple, Carotid Bruit Respiratory: Chest Non Tender, Lungs Clear, Normal Breath Sounds, No Accessory Muscle Use, No Respiratory Distress Cardiovascular: Regular Rate, Rhythm, No Edema, No Gallop, No JVD, No Murmur, Normal Peripheral Pulses Gastrointestinal: Normal Bowel Sounds, No Organomegaly, No Pulsatile Mass, Non Tender, Soft Back: Normal Inspection, No CVA Tenderness, No Vertebral Tenderness Extremity: Normal Capillary Refill, Normal Inspection, Normal Range of Motion (Except for weakness in the lower extremities), Non Tender, No Calf Tenderness, No Pedal Edema Neurologic/Psychiatric: Alert, Oriented x3, bacteriology research assistant II-XII Norm as Tested, Abnormal Gait ( unable to ambulate), Depressed Affect, Motor Weakness ( lower extremities) Skin: Normal Color, Warm/Dry Lymphatic: No Adenopathy Results/Procedures Lab Laboratory Tests 07/28/23 09:25 Patient resulted labs reviewed. FIM Transfers Therapy Code Descriptions/Definitions Functional [place] Measure: 0=Not Assessed/NA 4=Minimal Assistance 1=Total Assistance 5=Supervision or Setup 2=Maximal Assistance 6=Modified [place] 3=Moderate Assistance 7=Complete IndependenceSCALE: Activities may be completed with or without assistive devices. 5-Mgswvdxpox-aazzsyk completes the activity by him/herself with no assistance from a helper. 5-Set-up or Clean-up Assistance-helper sets up or cleans up; patient completes activity. [place] assists only prior to or following the activity. 4-Supervision or Touching Assistance-helper provides verbal cues and/or touching/steadying and/or contact guard assistance as patient completes activit y. Assistance may be provided throughout the activity or intermittently. 3-Partial/Moderate Assistance-helper does LESS THAN HALF the effort. [place] lifts, holds or supports trunk or limbs, but provides less than half the effort. 2-Substantial/Maximal Assistance-helper does MORE THAN HALF the effort. [place] lifts or holds trunk or limbs and provides more than half the effort. 2-Zkhsnrkli-nrioug does ALL the effort. Patient does none of the effort to complete the activity. Or, the assistance of 2 or more helpers is required for the patient to complete the activity. If activity was not attempted, code reason: 7-Patient Refused. 9-Not Applicable-not attempted and the patient did not perform the activity before the current illness, exacerbation or injury. 10-Not Attempted due to Environmental Limitations-(lack of equipment, weather restraints, etc.). 88-Not Attempted due to Medical Conditions or Safety Concerns. Roll Left to Right (QC): 4 (SBA-CGA with cues to use bedrail and push with opposite LE) Sit to Lying (QC): 2 (Max (A) of 1) Sit to Stand (QC): 1 (Sit>stand lift utilized /c (A) of 2. ) Chair/Cst-hr-Dzgwl Xfer(QC): 1 (using sit>stand lift) Car Transfer (QC): 88 Gait Training Does the Patient Walk?: No and Walking Goal IS indicated Walk 10 feet (QC): 88 Walk 50 ft with 2 Turns(QC): 88 Walk 150 ft (QC): 88 Walking 10ft/uneven surface-QC: 88 Wheelchair Training Does the Pt Use a Wheelchair?: Yes Distance: 60' x 2 Wheel 50 ft with 2 turns (QC): 4 (cues to navigating tight turns, O2 tank assist.) Wheel 150 ft (QC): 88 (fatigue does not allow for 150' distance.) Type of Wheelchair: Manual Stair Training 1 Step (curb) (QC): 88 4 Steps (QC): 9 12 Steps (QC): 9 Balance Picking up an Object (QC): 88 ADL-Treatment Eating (QC): 5 Oral Hygiene (QC): 4 (SBA seated at sink. 1VC for initiation of task.) Shower/Bathe Self (QC): 1 (sit to stand lift required for performing pericare/posterior hygiene. ) Upper Body Dressing (QC): 3 Lower Body Dressing (QC): 1 (Sit to stand lift required for pant hike. Dependent at bed level.) On/Off Footwear (QC): 1 Toileting Hygiene (QC): 1 (Dependent at bed level. 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
[2023-07-28] MEDS: THERAPEUTIC MULTIVITAMIN W/MINERALS TABLET PO SCH (06:04)
[2023-07-28] MEDS: PANTOPRAZOLE 40 MG TABLET PO SCH (06:04)
[2023-07-28] MEDS: LEVOTHYROXINE 125 MCG TABLET PO SCH (06:04)
[2023-07-28] MEDS: DOCUSATE SODIUM 100 MG CAPSULE PO SCH ×2 (08:45→21:55)
[2023-07-28] MEDS: SENNA W/DOCUSATE TABLET PO SCH ×2 (08:45→21:55)
[2023-07-28] MEDS: NICOTINE 21 MG PATCH TD SCH (08:46)
[2023-07-28] MEDS: amLODIPine 5 MG TABLET PO SCH ×2 (08:46→09:53)
[2023-07-28] MEDS: SERTRALINE 50 MG TABLET PO SCH (08:46)
[2023-07-28] MEDS: APIXABAN 5 MG TABLET PO SCH ×2 (08:46→21:56)
[2023-07-28] MEDS: rOPINIRole 0.25 MG TABLET PO SCH ×3 (08:46→21:56)
[2023-07-28] MEDS: NICOTINE PATCH REMOVAL TP SCH (08:47)
[2023-07-28] MEDS: MICONAZOLE 2% POWDER 90 GM TOP SCH ×2 (08:48→21:56)
[2023-07-28] MEDS ORDERED: POTASSIUM CHLORIDE 10 MEQ TABLET PO SCH (09:00)
--- NOTE | 2023-07-28 09:39 | Diagnostic Imaging Report ---
CHEST 1 VIEW, AP/PA ONLY INDICATION: Hypoxia. COMPARISON: None. FINDINGS: Lungs: Normal lung volume. No focal consolidation. Pleura: No pleural effusion or pneumothorax. Heart and Mediastinum: Cardiomegaly. Great vessels of the thorax are normal. Left pectoral Port-A-Cath tip projects over the SVC. Osseous Structures and Soft Tissues: No acute osseous abnormality. Normal soft tissues. IMPRESSION: Cardiomegaly. No focal consolidation or junior pulmonary edema. Dictated by: Dictated on workstation # [id number]
--- NOTE | 2023-07-28 09:41 | Occupational Ther Daily Note ---
OT Current Status-Daily Note Subjective Pt in bed, agreeable to OT Tx with focus on showering. As tx progressed, pt c/o nausea and fatigue. At end of session, pt assisted back to bed due to c/o dizziness, RN present and BP taken 78/49. RN requests therapy to hold at this time due to low BP. O2 saturation 92-98% on RA with activity. Mental Status/Objective Patient Orientation: Person, Place, Time, Situation ADL-Treatment Therapy Code Descriptions/Definitions Functional [place] Measure: 0=Not Assessed/NA 4=Minimal Assistance 1=Total Assistance 5=Supervision or Setup 2=Maximal Assistance 6=Modified [place] 3=Moderate Assistance 7=Complete IndependenceSCALE: Activities may be completed with or without assistive devices. 6-Gpdkorxoif-lvmlmrq completes the activity by him/herself with no assistance from a helper. 5-Set-up or Clean-up Assistance-helper sets up or cleans up; patient completes activity. [place] assists only prior to or following the activity. 4-Supervision or Touching Assistance-helper provides verbal cues and/or touching/steadying and/or contact guard assistance as patient completes activity. Assistance may be provided throughout the activity or intermittently. 3-Partial/Moderate Assistance-helper does LESS THAN HALF the effort. [place] lifts, holds or supports trunk or limbs, but provides less than half the effort. 2-Substantial/Maximal Assistance-helper does MORE THAN HALF the effort. [place] lifts or holds trunk or limbs and provides more than half the effort. 3-Lwxoivwul-nlafms does ALL the effort. Patient does none of the effort to complete the activity. Or, the assistance of 2 or more helpers is required for the patient to complete the activity. If activity was not attempted, code reason: 7-Patient Refused. 9-Not Applicable-not attempted and the patient did not perform the activity before the current illness, exacerbation or injury. 10-Not Attempted due to Environmental Limitations-(lack of equipment, weather restraints, etc.). 88-Not Attempted due to Medical Conditions or Safety Concerns. Eating (QC): 5 Shower/Bathe Self (QC): 1 (sit to stand lift utilized to wash/dry buttocks.) Lower Body Dressing (QC): 1 (sit to stand lift utilized for pant hike, assist all parts.) On/Off Footwear: 2 (Pt attempted to doff, but unable to doff completely. Assist to don b/l gripper socks.) Other Treatment Pt in bed, finished breakfast. transferred supine to sit EOB, min A with scooting towards EOB. Pt transferred from EOB to ID via sit to stand lift. Pt taken to large shower room where pt participated in shower. Throughout task, pt reports feeling more and more fatigued requiring increased assistance from OT. Pt initially able to wash BUEs, chest/abdomen and thighs. Pt attempted to use LH sponge to wash LEs, but required assistance for throughness. OT assisted with washing buttocks, back and hair. After shower, pt reports fatigue requiring assistance drying back, BLEs, underarms, and hair. Pt donned clean hospital gown, OT threaded BLEs into brief and gripper socks. Pt taken back to room, began c/o increasing nausea and feeling like she was going to pass out, RN present and aware. Pt instructed to keep head up and keep talking, but pt continued to position herself with her chin resting against her chest and she was not speaking. Sit to stand lift utilized to transfer pt to EOB, then assist x2 to transfer supine. Pt positioned to comfort and RN assessed vitals. BP 76/51, O2 saturation 88% on RA. RN applied 3L NC. After several minutes BP 78/49 and O2 saturation 98% on 3L. RN states pt to hold from therapy at this time due to low BP. Post tx, pt in bed, call light in reach and all needs met, RN present. Education OT Patient Education: Correct positioning, Energy conservation, Modified ADL techniques, Progress toward Goal/Update tx plan, Purpose of tx/functional activities, Rehab process Teaching Recipient: Patient Teaching Methods: Discussion Response to Teaching: Verbalize Understanding OT Short Term Goals Short Term Goals Time Frame: Aug 12, 2023 Shower/bathe self: 3 Upper body dressin Lower body dressin OT M[facility] Goals Offset Printing Operator Goals Time Frame: Aug 21, 2023 Acute change in mental status: 0 Inattention: 0 Disorganized thinkin Altered level of consciousness: 0 Eating (QC): 6 Oral Hygiene (QC): 6 Toileting Hygiene (QC): 6 Shower/Bathe Self (QC): 5 Upper Body Dressing (QC): 5 Lower Body Dressing (QC): 5 On/Off Footwear (QC): 3 Additional Goals: 1-Demonstrate ADL Tasks, 2-Verbalize Understanding, 3- ImproveStrength/Pepe 1=Demonstrate adherence to instructed precautions during ADL tasks. 2=Patient will verbalize/demonstrate understanding of assistive devices/modifications for ADL. 3=Patient will improve strength/tolerance for activity to enable patient to perform ADL's. OT Education/Plan Problem List/Assessment Assessment: Decreased Activ Tolerance, Decreased UE Strength, Impaired Funct Balance, Impaired I ADL's, Impaired Self-Care Skills Discharge Recommendations Plan/Recommendations: Continue POC Treatment Plan/Plan of Care Patient would benefit from OT for education, treatment and training to promote independence in ADL's, mobility, safety and/or upper extremity function for ADL's. Plan of Care: ADL Retraining, Functional Mobility, Group Exercise/Act as Ind, UE Funct Exercise/Act Treatment Duration: Aug 21, 2023 Frequency: At least 5 of 7 days/Wk (IRF) Estimated Hrs Per Day: 1 hour per day Agreement: Yes Rehab Potential: Fair Time Start Time: 07:45 Stop Time: 09:15 DATE: Jul 28, 2023 Total Time Billed (hr/min): 90 Billed Treatment Time 1, ADL 6 ROHITH BLANTON OT Jul 28, 2023 09:41
[2023-07-28] MEDS ORDERED: IMMUNE GLOBULIN IJ SCH ×2 (09:45)
[2023-07-28 09:47] LABS: BASOPHILS % (AUTO) 1 % (0-10); EOSINOPHILS # (AUTO) 0.2 10^3/uL (0.0-0.3); EOSINOPHILS % (AUTO) 3 % (0-10); HEMATOCRIT 32 % (35-52); HEMOGLOBIN 10.7 g/dL (11.5-16.0); LYMPHOCYTES % (AUTO) 26 % (12-44); MEAN CORPUSCULAR HEMOGLOBIN 32 pg (25-34); MEAN CORPUSCULAR HGB CONC 33 g/dL (32-36); MEAN CORPUSCULAR VOLUME 96 fL (80-99); MEAN PLATELET VOLUME 8.9 fL (9.0-12.2); MONOCYTES # (AUTO) 0.4 10^3/uL (0.0-1.0); MONOCYTES % (AUTO) 6 % (0-12); NEUTROPHILS # (AUTO) 4.7 10^3/uL (1.8-7.8); NEUTROPHILS % (AUTO) 64 % (42-75); PLATELET COUNT 177 10^3/uL (130-400); WHITE BLOOD COUNT 7.4 10^3/uL (4.3-11.0)
[2023-07-28 09:54] LABS: BILIRUBIN,TOTAL 0.6 MG/DL (0.1-1.0); CALCIUM 8.2 MG/DL (8.5-10.1); CREATININE SERUM 0.83 MG/DL (0.60-1.30); TOTAL PROTEIN 7.7 GM/DL (6.4-8.2)
[2023-07-28 10:04] LABS: ABG BASE EXCESS 9.6 MMOL/L (-2.5-2.5); ABG OXYGEN SATURATION 98 % (94-100); ABG PCO2 42 MMHG (35-45); ABG PH 7.51 (7.37-7.43); ABG PO2 88 MMHG (79-93)
[2023-07-28 10:06] LABS: ALLENS TEST POSITIVE; INSPIRED O2 2.5 L; PATIENT TEMP 35.1; VENTILATOR NO
[2023-07-28] MEDS: POTASSIUM BICARB 20 MEQ effervescent TABLET PO SCH ×3 (10:34→21:56)
--- NOTE | 2023-07-28 13:04 | Occupational Ther Daily Note ---
OT Current Status-Daily Note Subjective Pt in bed, agreeable to OT Tx. Pt's RN states pt OK for bed level exercise. Mental Status/Objective Attachments: Oxygen (2.5 L NC. ) ADL-Treatment Therapy Code Descriptions/Definitions Functional [place] Measure: 0=Not Assessed/NA 4=Minimal Assistance 1=Total Assistance 5=Supervision or Setup 2=Maximal Assistance 6=Modified [place] 3=Moderate Assistance 7=Complete IndependenceSCALE: Activities may be completed with or without assistive devices. 6-Lbticupelf-yzvnflr completes the activity by him/herself with no assistance from a helper. 5-Set-up or Clean-up Assistance-helper sets up or cleans up; patient completes activity. [place] assists only prior to or following the activity. 4-Supervision or Touching Assistance-helper provides verbal cues and/or touching/steadying and/or contact guard assistance as patient completes activity. Assistance may be provided throughout the activity or intermittently. 3-Partial/Moderate Assistance-helper does LESS THAN HALF the effort. [place] lifts, holds or supports trunk or limbs, but provides less than half the effort. 2-Substantial/Maximal Assistance-helper does MORE THAN HALF the effort. [place] lifts or holds trunk or limbs and provides more than half the effort. 8-Hupdrsflr-ixbspe does ALL the effort. Patient does none of the effort to co mplete the activity. Or, the assistance of 2 or more helpers is required for the patient to complete the activity. If activity was not attempted, code reason: 7-Patient Refused. 9-Not Applicable-not attempted and the patient did not perform the activity before the current illness, exacerbation or injury. 10-Not Attempted due to Environmental Limitations-(lack of equipment, weather restraints, etc.). 88-Not Attempted due to Medical Conditions or Safety Concerns. Other Treatment Pt in bed, agreeable to OT Tx. Education provided on energy conservation of tasks. Pt verbalized understanding and able to provide some insight of her typical day at home and what time of day she has the most energy. OT/PT cotreat due to skill of 2 clinicians required which a rehab director occupational therapist could not perform in order to coordinate UE/LEs and due to pt's limitations in strength, activity tolerance, and mobility. OT focused on UE placement and cues for sequencing and safety, PT focused on LE placement and gross overall movement. Per RN request, bed level exercises performed and OOB activities not attempted. Pt completed x10 reps BUE exercises for the following: shoulder flexion, elbow flexion/extension, front punch, wrist flexion/extension, finger flexion/extension. Pt took rest breaks as needed. Post tx, pt in bed, call light in reach and all needs met. Education OT Patient Education: Correct positioning, Energy conservation, Exercise program, Modified ADL techniques, Progress toward Goal/Update tx plan, Rehab process Teaching Recipient: Patient Teaching Methods: Discussion Response to Teaching: Verbalize Understanding OT Short Term Goals Short Term Goals Time Frame: Aug 12, 2023 Shower/bathe self: 3 Upper body dressin Lower body dressin OT Penitentiary Goals Penitentiary Goals Time Frame: Aug 21, 2023 Acute change in mental status: 0 Inattention: 0 Disorganized thinkin Altered level of consciousness: 0 Eating (QC): 6 Oral Hygiene (QC): 6 Toileting Hygiene (QC): 6 Shower/Bathe Self (QC): 5 Upper Body Dressing (QC): 5 Lower Body Dressing (QC): 5 On/Off Footwear (QC): 3 Additional Goals: 1-Demonstrate ADL Tasks, 2-Verbalize Understanding, 3- ImproveStrength/Pepe 1=Demonstrate adherence to instructed precautions during ADL tasks. 2=Patient will verbalize/demonstrate understanding of assistive devices/modifications for ADL. 3=Patient will improve strength/tolerance for activity to enable patient to perform ADL's. OT Education/Plan Problem List/Assessment Assessment: Decreased Activ Tolerance, Decreased UE Strength, Dependent Transfers, Impaired Funct Balance, Impaired I ADL's, Impaired Self-Care Skills Discharge Recommendations Plan/Recommendations: Continue POC Treatment Plan/Plan of Care Patient would benefit from OT for education, treatment and training to promote independence in ADL's, mobility, safety and/or upper extremity function for ADL's. Plan of Care: ADL Retraining, Functional Mobility, Group Exercise/Act as Ind, UE Funct Exercise/Act Treatment Duration: Aug 21, 2023 Frequency: At least 5 of 7 days/Wk (IRF) Estimated Hrs Per Day: 1 hour per day Agreement: Yes Rehab Potential: Fair Time Start Time: 12:45 Stop Time: 13:30 DATE: Jul 28, 2023 Total Time Billed (hr/min): 45 Billed Treatment Time 1, FA (15'), EX 2 (30') ROHITH BLANTON OT Jul 28, 2023 13:04
--- NOTE | 2023-07-28 13:13 | Speech Therapy Progress Note ---
Therapy Progress Note Speech pathology was requested to screen the patient's swallowing function by ARU central office operator supervisor. The patient underwent evaluation by speech pathology at the transferring facility for the oropharyngeal swallowing function and a regular consistency diet with thin liquids was recommended following. The patient was observed swallowing six pills (including a large potassium pill) on this date with thin liquids via straw and consuming large, consecutive drinks of thin liqu id. Overt s/s of suspected aspiration were not displayed with any P.O. intake. The patient appears cognitively intact, completing spontaneous conversation and communication appropriately. The patient denied concerns or difficulties with the oropharyngeal swallowing function or additional questions for the clinician at this time. Safe swallowing precautions were discussed and the patient verbalized comprehension. If concerns regarding aspiration develop, please contact speech pathology for a formal clinical bedside swallowing evaluation. 10:00 to 10:15 (no charge). TAE TIM Jul 28, 2023 13:13
--- NOTE | 2023-07-28 14:48 | Physical Therapy Daily Note ---
PT Daily Note-Current Subjective Pt found lying in bed /c OT present upon entry. Agreed to PT/OT co-treatment. OT focus on UE strengthening and PT focus on LE strengthening. No reports of pain throughout treatment. Pain Section J - Health Conditions 1. Rarely or not at all 2. Occasionally 3. Frequently 4. Almost constantly 8. Unable to answer Pain Effect on Sleep: 1 Pain Interference with Therapy: 1 Pain Interference w/Day-to-Day: 1 Mental Status Patient Orientation: Person, Place Attachments: Oxygen 2L O2 Transfers SCALE: Activities may be completed with or without assistive devices. 6-Syqsyhroqv-eaqagwx completes the activity by him/herself with no assistance from a helper. 5-Set-up or Clean-up Assistance-helper sets up or cleans up; patient completes activity. [place] assists only prior to or following the activity. 4-Supervision or Touching Assistance-helper provides verbal cues and/or touching/steadying and/or contact guard assistance as patient completes activity. Assistance may be provided throughout the activity or intermittently. 3-Partial/Moderate Assistance-helper does LESS THAN HALF the effort. [place] lifts, holds or supports trunk or limbs, but provides less than half the effort. 2-Substantial/Maximal Assistance-helper does MORE THAN HALF the effort. [place] lifts or holds trunk or limbs and provides more than half the effort. 9-Arwzblhvi-ktbqna does ALL the effort. Patient does none of the effort to compl ete the activity. Or, the assistance of 2 or more helpers is required for the patient to complete the activity. If activity was not attempted, code reason: 7-Patient Refused. 9-Not Applicable-not attempted and the patient did not perform the activity before the current illness, exacerbation or injury. 10-Not Attempted due to Environmental Limitations-(lack of equipment, weather restraints, etc.). 88-Not Attempted due to Medical Conditions or Safety Concerns. Weight Bearing Weight Bearing/Tolerated Weight Bearing/Tolerated Treatments Supine Therapeutic LE Exercises (B): - Heel slides x 10 - SLRs x 10 - Ankle pumps x 15 - Hip abd/add x 10 - Quad sets x 15 - Glute sets x 15 Supine Therapeutic UE Exercises: See OT note. Assessment Current Status: Fair Progress Pt displays good tolerance to therapeutic exercises and only required short rest breaks between sets to complete. PT led LE exercises and OT led UE exercises. Displays decent muscle endurance and strength while performing LE exercises. Has some difficulty /c proper performance of exercises due to BLE neuropathy. Continue to progress pt as tolerated per POC. PT Nurse Midwife Goals Long-Term Goals PT Nurse Midwife Goals Time Frame: Aug 17, 2023 Roll Left & Right (QC): 6 (in bed or recliner) Sit to Lying (QC): 6 (in bed or recliner.) Lying-Sitting on Side/Bed(QC): 4 Sit to Stand (QC): 4 Chair/Kgc-vn-Zqwrc Xfer(QC): 4 Toilet Transfer (QC): 4 Car Transfer (QC): 4 Does the Patient Walk: No and Walking Goal IS indicated Walk 10 feet (QC): 4 (with FWW or 4WW) Walk 50ft with 2 Turns (QC): 4 Walk 150 ft (QC): 9 Walking 10ft on Uneven Surface: 4 1 Step (curb) (QC): 3 4 Steps (QC): 9 12 Steps (QC): 9 Picking up an Object (QC): 4 Does the Pt use WC or Scooter?: Yes Wheel 50 feet with 2 turns (QC: 6 Type: Manual Wheel 150 feet: 6 Type: Motorized PT Plan Treatment/Plan Treatment Plan: Continue Plan of Care Treatment Plan: Bed Mobility, Education, Functional Activity Pepe, Functional Strength, Group Therapy, Gait, Safety, Therapeutic Exercise, Transfers, Other ( W/C mobility) Treatment Duration: Aug 17, 2023 Frequency: At least 5 of 7 days/Wk (IRF) Estimated Hrs Per Day: 1.5 hours per day Time Time In: 1300 Time Out: 1330 DATE: Jul 28, 2023 Total Billed Treatment Time: 30 Total Billed Treatment 1 visit EX x 2 Total treatment time: 3188-8896 Co-treatment time: 3573-1503 HARVINDER RANDOLPH DOBBY LOOM CHAIN PEGGER Jul 28, 2023 14:48
--- NOTE | 2023-07-28 17:15 | Physical Therapy Progress Note ---
Therapy Progress Note Unable to see patient for a.m. ARU treatment time today due to BP issues. Esther Azevedo PT Jul 28, 2023 17:15
[2023-07-29] MEDS: SUCRALFATE 1 GM TABLET PO SCH ×4 (00:56→18:07)
[2023-07-29] MEDS: THERAPEUTIC MULTIVITAMIN W/MINERALS TABLET PO SCH (06:11)
[2023-07-29] MEDS: PANTOPRAZOLE 40 MG TABLET PO SCH (06:11)
[2023-07-29] MEDS: LEVOTHYROXINE 125 MCG TABLET PO SCH (06:11)
[2023-07-29 08:00] VITALS: BP 112/62
[2023-07-29 08:45] VITALS: BP 88/51
[2023-07-29] MEDS: SERTRALINE 50 MG TABLET PO SCH (09:14)
[2023-07-29] MEDS: POTASSIUM BICARB 20 MEQ effervescent TABLET PO SCH ×3 (09:14→21:03)
[2023-07-29] MEDS: NICOTINE 21 MG PATCH TD SCH (09:14)
[2023-07-29] MEDS: APIXABAN 5 MG TABLET PO SCH ×2 (09:14→21:03)
[2023-07-29] MEDS: DOCUSATE SODIUM 100 MG CAPSULE PO SCH ×2 (09:14→21:00)
[2023-07-29 09:15] VITALS: BP 96/54
[2023-07-29] MEDS: amLODIPine 5 MG TABLET PO SCH (09:16)
[2023-07-29] MEDS: NICOTINE PATCH REMOVAL TP SCH (09:17)
--- NOTE | 2023-07-29 09:52 | Occupational Ther Daily Note ---
OT Current Status-Daily Note Subjective Pt up in recliner, agreeable to OT tx. BP 85/51 supine at start of tx, RN states pt OK for therapy. Orthostatic BP taken, 96/54 supine, 125/72 seated EOB. BP attempted standing in sit to stand lift but BP machine would not provide reading. RN notified of results. Mental Status/Objective Attachments: Oxygen (2L) ADL-Treatment Therapy Code Descriptions/Definitions Functional [place] Measure: 0=Not Assessed/NA 4=Minimal Assistance 1=Total Assistance 5=Supervision or Setup 2=Maximal Assistance 6=Modified [place] 3=Moderate Assistance 7=Complete IndependenceSCALE: Activities may be completed with or without assistive devices. 0-Kzzdlguqmb-txmttzc completes the activity by him/herself with no assistance from a helper. 5-Set-up or Clean-up Assistance-helper sets up or cleans up; patient completes activity. [place] assists only prior to or following the activity. 4-Supervision or Touching Assistance-helper provides verbal cues and/or touching/steadying and/or contact guard assistance as patient completes activity. Assistance may be provided throughout the activity or intermittently. 3-Partial/Moderate Assistance-helper does LESS THAN HALF the effort. [place] lifts, holds or supports trunk or limbs, but provides less than half the effort. 2-Substantial/Maximal Assistance-helper does MORE THAN HALF the effort. [place] lifts or holds trunk or limbs and provides more than half the effort. 0-Ynhbgbfoj-dzpkhn does ALL the effort. Patient does none of the effort to complete the activity. Or, the assistance of 2 or more helpers is required for the patient to complete the activity. If activity was not attempted, code reason: 7-Patient Refused. 9-Not Applicable-not attempted and the patient did not perform the activity before the current illness, exacerbation or injury. 10-Not Attempted due to Environmental Limitations-(lack of equipment, weather restraints, etc.). 88-Not Attempted due to Medical Conditions or Safety Concerns. Lower Body Dressing (QC): 1 On/Off Footwear: 1 Toileting Hygiene (QC): 1 Other Treatment [id number] OT tx. Pt in bed, agreeable to OT Tx. BP 85/51 at start of tx, RN aware and states pt OK for therapy. Pt demo'd understanding of exercises from previous date, able to recall all but 1 exercise, completing x10 reps for shoulder flexion, elbow flexion/extension, wrist flexion/extension, pronation/supination and finger flexion/extension. OT provided pt with printed HEP. [id number] OT/PT cotreat due to skill of 2 clinicians required which a veterans rehabilitation counselor could not perform in order to coordinate UE/LEs, decrease fall risk, and due to pt's limitations in strength, activity tolerance, mobility and transfers. OT focused on UE placement, ADLs, and cues for sequencing and safety, PT focused on LE placement, gross overall movement, transfers and mobility. BP 96/54 supine. Pt transferred supine to sit EOB, SBA. BP seated 125/72. Sit to stand lift utilized to attempt standing blood pressure, but BP machine was unable to obtain reading with several attempts. Pt able to stand x2 times with sit to stand lift, ~1-2 mins each time. Brief donned and pant hike performed using lift. Pt tr ansferred to recliner via lift. Sharad hose donned, education provided to pt on purpose/benefits of tedhose. Pt positioned to comfort. Post tx, pt in recliner, call light in reach and all needs met Education OT Patient Education: Correct positioning, Energy conservation, Modified ADL techniques, Progress toward Goal/Update tx plan, Purpose of tx/functional activities, Rehab process Teaching Recipient: Patient Teaching Methods: Discussion Response to Teaching: Verbalize Understanding OT Short Term Goals Short Term Goals Time Frame: Aug 12, 2023 Shower/bathe self: 3 Upper body dressin Lower body dressin OT Penitentiary Goals Flatwork Supervisor Goals Time Frame: Aug 21, 2023 Acute change in mental status: 0 Inattention: 0 Disorganized thinkin Altered level of consciousness: 0 Eating (QC): 6 Oral Hygiene (QC): 6 Toileting Hygiene (QC): 6 Shower/Bathe Self (QC): 5 Upper Body Dressing (QC): 5 Lower Body Dressing (QC): 5 On/Off Footwear (QC): 3 Additional Goals: 1-Demonstrate ADL Tasks, 2-Verbalize Understanding, 3- ImproveStrength/Pepe 1=Demonstrate adherence to instructed precautions during ADL tasks. 2=Patient will verbalize/demonstrate understanding of assistive devices/modifications for ADL. 3=Patient will improve strength/tolerance for activity to enable patient to perform ADL's. OT Education/Plan Problem List/Assessment Assessment: Decreased Activ Tolerance, Decreased UE Strength, Impaired Funct Balance, Impaired I ADL's, Impaired Self-Care Skills Discharge Recommendations Plan/Recommendations: Continue POC Treatment Plan/Plan of Care Patient would benefit from OT for education, treatment and training to promote independence in ADL's, mobility, safety and/or upper extremity function for ADL's. Plan of Care: ADL Retraining, Functional Mobility, Group Exercise/Act as Ind, UE Funct Exercise/Act Treatment Duration: Aug 21, 2023 Frequency: At least 5 of 7 days/Wk (IRF) Estimated Hrs Per Day: 1 hour per day Agreement: Yes Rehab Potential: Fair Time Start Time: 08:30 Stop Time: 10:00 DATE: Jul 29, 2023 Total Time Billed (hr/min): 90 Billed Treatment Time OT tx x30' Cotreat x60' 1, EX 2 (30'), FA 4 (60') ROHITH BLANTON OT Jul 29, 2023 09:52
--- NOTE | 2023-07-29 10:03 | PM&R Progress Note ---
Subjective HPI/CC On Admission Date Seen by Provider: Jul 29, 2023 Time Seen by Provider: 12:30 Subjective/Events-last exam 07/29/2023: Severe weakness noted IVIG tomorrow and she hopes it will give her a little bit of energy No falls but high risk 07/28/2023: Doing well until hypotensive and hypoxic this am No falls Very weak BM+ 07/27/2023: Patient doing a lot better No pain is reported No falls Weakness is profound Requesting team patch Miconazole powder will be initiated Review of Systems General: Fatigue, Malaise Neurological: Weakness Objective Exam Vital Signs Vital Signs Date Time Temp Pulse Resp B/P (MAP) Pulse Ox O2 Delivery O2 Flow Rate FiO2 07/29/23 18:28 Nasal Cannula 2.00 07/29/23 12:40 81 101/69 (80) 07/29/23 08:45 95 07/29/23 08:00 36.2 18 Capillary Refill : General Appearance: No Apparent Distress, WD/WN, Chronically ill, Obese HEENT: PERRL/EOMI, Normal ENT Inspection, Pharynx Normal Neck: Full Range of Motion, Normal Inspection, Non Tender, Supple, Carotid Bruit Respiratory: Chest Non Tender, Lungs Clear, Normal Breath Sounds, No Accessory Muscle Use, No Respiratory Distress Cardiovascular: Regular Rate, Rhythm, No Edema, No Gallop, No JVD, No Murmur, Normal Peripheral Pulses Gastrointestinal: Normal Bowel Sounds, No Organomegaly, No Pulsatile Mass, Non Tender, Soft Back: Normal Inspection, No CVA Tenderness, No Vertebral Tenderness Extremity: Normal Capillary Refill, Normal Inspection, Normal Range of Motion (Except for weakness in the lower extremities), Non Tender, No Calf Tenderness, No Pedal Edema Neurologic/Psychiatric: Alert, Oriented x3, lawn technician II-XII Norm as Tested, Abnormal Gait ( unable to ambulate), Depressed Affect, Motor Weakness ( lower extremities) Skin: Normal Color, Warm/Dry Lymphatic: No Adenopathy Results/Procedures Lab Patient resulted labs reviewed. FIM Transfers Therapy Code Descriptions/Definitions Functional [place] Measure: 0=Not Assessed/NA 4=Minimal Assistance 1=Total Assistance 5=Supervision or Setup 2=Maximal Assistance 6=Modified [place] 3=Moderate Assistance 7=Complete IndependenceSCALE: Activities may be completed with or without assistive devices. 4-Ijhgzwskyc-vghgpfb completes the activity by him/herself with no assistance from a helper. 5-Set-up or Clean-up Assistance-helper sets up or cleans up; patient completes activity. [place] assists only prior to or following the activity. 4-Supervision or Touching Assistance-helper provides verbal cues and/or touching/steadying and/or contact guard assistance as patient completes activity. Assistance may be provided throughout the activity or intermittently. 3-Partial/Moderate Assistance-helper does LESS THAN HALF the effort. [place] lifts, holds or supports trunk or limbs, but provides less than half the effort. 2-Substantial/Maximal Assistance-helper does MORE THAN HALF the effort. [place] lifts or holds trunk or limbs and provides more than half the effort. 5-Mgepiplgf-cczlkj does ALL the effort. Patient does none of the effort to complete the activity. Or, the assistance of 2 or more helpers is required for the patient to complete the activity. If activity was not attempted, code reason: 7-Patient Refused. 9-Not Applicable-not attempted and the patient did not perform the activity before the current illness, exacerbation or injury. 10-Not Attempted due to Environmental Limitations-(lack of equipment, weather restraints, etc.). 88-Not Attempted due to Medical Conditions or Safety Concerns. Roll Left to Right (QC): 4 (SBA-CGA with cues to use bedrail and push with opposite LE) Sit to Lying (QC): 2 (Max (A) of 1) Sit to Stand (QC): 1 (Sit>stand lift utilized /c (A) of 2. ) Chair/Wgo-cd-Fispx Xfer(QC): 1 (using sit>stand lift) Car Transfer (QC): 88 Gait Training Does the Patient Walk?: No and Walking Goal IS indicated Walk 10 feet (QC): 88 Walk 50 ft with 2 Turns(QC): 88 Walk 150 ft (QC): 88 Walking 10ft/uneven surface-QC: 88 Wheelchair Training Does the Pt Use a Wheelchair?: Yes Distance: 60' x 2 Wheel 50 ft with 2 turns (QC): 4 (cues to navigating tight turns, O2 tank assist.) Wheel 150 ft (QC): 88 (fatigue does not allow for 150' distance.) Type of Wheelchair: Manual Stair Training 1 Step (curb) (QC): 88 4 Steps (QC): 9 12 Steps (QC): 9 Balance Picking up an Object (QC): 88 ADL-Treatment Eating (QC): 5 Oral Hygiene (QC): 4 (SBA seated at sink. 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 on prednisone taper dose and will receives IVIG every 2 weeks Chronic atrial fibrillation Anemia requiring transfusion on 07/25/2023 On oral anticoagulation for stroke prophylaxis Hypertension GERD Recent hyponatremia Recent hypokalemia Obesity Severe constipation no BM for 9 days upon arrival Resolved Plan: Bowel regimen PT and OT Home meds Prednisone taper dose Monitor closely 07/27/2023: Replace potassium Supportive care Fall risk 07/28/2023: Monitor hypoxia CXR and labs reviewed 07/29/2023: IVIG tomorrow Monitor closely (1) CIDP (chronic inflammatory demyelinating polyneuropathy) KONG TY DO Jul 29, 2023 10:03
[2023-07-29] MEDS: SENNA W/DOCUSATE TABLET PO SCH ×2 (10:53→21:00)
[2023-07-29] MEDS: rOPINIRole 0.25 MG TABLET PO SCH ×3 (10:53→21:02)
[2023-07-29] MEDS: MICONAZOLE 2% POWDER 90 GM TOP SCH ×2 (10:53→21:03)
--- NOTE | 2023-07-29 11:15 | Physical Therapy Daily Note ---
PT Daily Note-Current Subjective Pt sitting up in bed upon arrival. Pt agrees to PT but needs to take morning meds. Pain Location: No Pain Reported Section J - Health Conditions 1. Rarely or not at all 2. Occasionally 3. Frequently 4. Almost constantly 8. Unable to answer Pain Effect on Sleep: 1 Pain Interference with Therapy: 1 Pain Interference w/Day-to-Day: 1 Mental Status Patient Orientation: Person, Place, Situation Transfers SCALE: Activities may be completed with or without assistive devices. 5-Eyussyhdmn-ghoprou completes the activity by him/herself with no assistance from a helper. 5-Set-up or Clean-up Assistance-helper sets up or cleans up; patient completes activity. [place] assists only prior to or following the activity. 4-Supervision or Touching Assistance-helper provides verbal cues and/or touching/steadying and/or contact guard assistance as patient completes activity. Assistance may be provided throughout the activity or intermittently. 3-Partial/Moderate Assistance-helper does LESS THAN HALF the effort. [place] lifts, holds or supports trunk or limbs, but provides less than half the effort. 2-Substantial/Maximal Assistance-helper does MORE THAN HALF the effort. [place] lifts or holds trunk or limbs and provides more than half the effort. 1-Kgcvoffnq-gkkdja does ALL the effort. Patient does none of the effort to complete the activity. Or, the assistance of 2 or more helpers is required for the patient to complete the activity. If activity was not attempted, code reason: 7-Patient Refused. 9-Not Applicable-not attempted and the patient did not perform the activity before the current illness, exacerbation or injury. 10-Not Attempted due to Environmental Limitations-(lack of equipment, weather restraints, etc.). 88-Not Attempted due to Medical Conditions or Safety Concerns. Lying to Sitting/Side of Bed(Q: 5 Sit to Stand (QC): 1 Weight Bearing Weight Bearing/Tolerated Weight Bearing/Tolerated Exercises Seated Therapy Exercises: Ankle pumps, Long arc quads, Hip flexion, Glut set Seated Reps: 10 (2 sets) Treatments [id number] OT/PT cotreat due to skill of 2 clinicians required which a rehabilitation engineer could not perform in order to coordinate UE/LEs, decrease fall risk, and due to pt's limitations in strength, activity tolerance, mobility and transfers. OT focused on UE placement, ADLs, and cues for sequencing and safety, PT focused on LE placement, gross overall movement, transfers and mobility. BP 96/54 supine. Pt transferred supine to sit EOB, SBA. BP seated 125/72. Sit to stand lift utilized to attempt standing blood pressure, but BP machine was unable to obtain reading with several attempts. Pt able to stand x2 times with sit to stand lift, ~1-2 mins each time. Brief donned and pant hike performed using lift. Pt transferred to recliner via lift. Sharad hose donned, education provided to pt on purpose/benefits of tedhose. Pt positioned to comfort. Pt completes Seated LE Ex at recliner. Post tx, pt in recliner, call light in reach and all needs met. Assessment Current Status: Good Progress Orthostatic BP taken, 96/54 supine, 125/72 seated EOB. BP attempted standing in sit to stand lift but BP machine would not provide reading. RN notified of results. PT Bow Machine Operator Goals Bow Machine Operator Goals PT Bow Machine Operator Goals Time Frame: Aug 17, 2023 Roll Left & Right (QC): 6 (in bed or recliner) Sit to Lying (QC): 6 (in bed or recliner.) Lying-Sitting on Side/Bed(QC): 4 Sit to Stand (QC): 4 Chair/Fwt-qb-Srnsc Xfer(QC): 4 Toilet Transfer (QC): 4 Car Transfer (QC): 4 Does the Patient Walk: No and Walking Goal IS indicated Walk 10 feet (QC): 4 (with FWW or 4WW) Walk 50ft with 2 Turns (QC): 4 Walk 150 ft (QC): 9 Walking 10ft on Uneven Surface: 4 1 Step (curb) (QC): 3 4 Steps (QC): 9 12 Steps (QC): 9 Picking up an Object (QC): 4 Does the Pt use WC or Scooter?: Yes Wheel 50 feet with 2 turns (QC: 6 Type: Manual Wheel 150 feet: 6 Type: Motorized PT Plan Problem List Problem List: Activity Tolerance, Functional Strength, Transfer Treatment/Plan Treatment Plan: Continue Plan of Care Treatment Plan: Bed Mobility, Education, Functional Activity Pepe, Functional Strength, Group Therapy, Gait, Safety, Therapeutic Exercise, Transfers, Other (W/C mobility) Treatment Duration: Aug 17, 2023 Frequency: At least 5 of 7 days/Wk (IRF) Estimated Hrs Per Day: 1.5 hours per day Safety Risks/Education Patient Education: Transfer Techniques, Correct Positioning Teaching Recipient: Patient Teaching Methods: Discussion Response to Teaching: Verbalize Understanding Time Time In: 0900 Time Out: 1000 DATE: Jul 29, 2023 Total Billed Treatment Time: 60 Total Billed Treatment Co-treat w/OT for 60m (900-1000) 1, FA x2 (30m) & EX x2 (30m) NEO HERNADEZ PTA Jul 29, 2023 11:15
[2023-07-29 12:40] VITALS: BP 101/69
--- NOTE | 2023-07-29 16:22 | Physical Therapy Daily Note ---
PT Daily Note-Current Subjective Pt sitting in recliner upon arrival. Pt agrees to PT. Pain Location: No Pain Reported Section J - Health Conditions 1. Rarely or not at all 2. Occasionally 3. Frequently 4. Almost constantly 8. Unable to answer Pain Effect on Sleep: 1 Pain Interference with Therapy: 1 Pain Interference w/Day-to-Day: 1 Mental Status Patient Orientation: Person, Place, Situation Transfers SCALE: Activities may be completed with or without assistive devices. 3-Emqqpffwug-abgqfry completes the activity by him/herself with no assistance from a helper. 5-Set-up or Clean-up Assistance-helper sets up or cleans up; patient completes activity. [place] assists only prior to or following the activity. 4-Supervision or Touching Assistance-helper provides verbal cues and/or touching/steadying and/or contact guard assistance as patient completes activity. Assistance may be provided throughout the activity or intermittently. 3-Partial/Moderate Assistance-helper does LESS THAN HALF the effort. [place] lifts, holds or supports trunk or limbs, but provides less than half the effort. 2-Substantial/Maximal Assistance-helper does MORE THAN HALF the effort. [place] lifts or holds trunk or limbs and provides more than half the effort. 1-Ynbzhjlvz-aeujrp does ALL the effort. Patient does none of the effort to complete the activity. Or, the assistance of 2 or more helpers is required for the patient to complete the activity. If activity was not attempted, code reason: 7-Patient Refused. 9-Not Applicable-not attempted and the patient did not perform the activity before the current illness, exacerbation or injury. 10-Not Attempted due to Environmental Limitations-(lack of equipment, weather restraints, etc.). 88-Not Attempted due to Medical Conditions or Safety Concerns. Weight Bearing Weight Bearing/Tolerated Weight Bearing/Tolerated Exercises Supine Ex: Ankle pumps, Quad Set, Glut sets, Heel Slides, Short Arc Quads, Hip abd/add Supine Reps: 10 Seated Therapy Exercises: Ankle pumps, Long arc quads, Hip flexion, Hip abd/add, Glut set Seated Reps: 10 Treatments Pt is issued written HEP for Seated & Supine EX. This is reviewed during tx. Pt resting at end of tx w/all needs met, call light in hand. Assessment Current Status: Good Progress Pt reviews info. but needs frequent RB. PT Residential Goals Residential Goals PT Residential Goals Time Frame: Aug 17, 2023 Roll Left & Right (QC): 6 (in bed or recliner) Sit to Lying (QC): 6 (in bed or recliner.) Lying-Sitting on Side/Bed(QC): 4 Sit to Stand (QC): 4 Chair/Ggp-sq-Hhgvy Xfer(QC): 4 Toilet Transfer (QC): 4 Car Transfer (QC): 4 Does the Patient Walk: No and Walking Goal IS indicated Walk 10 feet (QC): 4 (with FWW or 4WW) Walk 50ft with 2 Turns (QC): 4 Walk 150 ft (QC): 9 Walking 10ft on Uneven Surface: 4 1 Step (curb) (QC): 3 4 Steps (QC): 9 12 Steps (QC): 9 Picking up an Object (QC): 4 Does the Pt use WC or Scooter?: Yes Wheel 50 feet with 2 turns (QC: 6 Type: Manual Wheel 150 feet: 6 Type: Motorized PT Plan Problem List Problem List: Activity Tolerance Treatment/Plan Treatment Plan: Continue Plan of Care Treatment Plan: Bed Mobility, Education, Functional Activity Pepe, Functional Strength, Group Therapy, Gait, Safety, Therapeutic Exercise, Transfers, Other (W/C mobility) Treatment Duration: Aug 17, 2023 Frequency: At least 5 of 7 days/Wk (IRF) Estimated Hrs Per Day: 1.5 hours per day Safety Risks/Education Patient Education: Issued Written HEP Teaching Recipient: Patient Teaching Methods: Discussion Response to Teaching: Verbalize Understanding Time Time In: 1430 Time Out: 1500 DATE: Jul 29, 2023 Total Billed Treatment Time: 30 Total Billed Treatment 1, EX (20m) & FA (10m) NEO HERNADEZ PROJECT DESIGN ENGINEER Jul 29, 2023 16:22
[2023-07-29 20:05] VITALS: BP 106/58
[2023-07-30] VITALS (16 sets, daily range): BP systolic 92–127; BP diastolic 51–77
[2023-07-30] MEDS: SUCRALFATE 1 GM TABLET PO SCH ×5 (00:55→23:57)
[2023-07-30] MEDS: PANTOPRAZOLE 40 MG TABLET PO SCH (06:21)
[2023-07-30] MEDS: THERAPEUTIC MULTIVITAMIN W/MINERALS TABLET PO SCH (06:21)
[2023-07-30] MEDS: LEVOTHYROXINE 125 MCG TABLET PO SCH (06:21)
--- NOTE | 2023-07-30 07:46 | PM&R Progress Note ---
Subjective HPI/CC On Admission Date Seen by Provider: Jul 30, 2023 Time Seen by Provider: 12:00 Subjective/Events-last exam 07/30/2023: Still very weak IVIG today and tomorrow IVF in-between No falls but increased risk 07/29/2023: Severe weakness noted IVIG tomorrow and she hopes it will give her a little bit of energy No falls but high risk 07/28/2023: Doing well until hypotensive and hypoxic this am No falls Very weak BM+ 07/27/2023: Patient doing a lot better No pain is reported No falls Weakness is profound Requesting team patch Miconazole powder will be initiated Review of Systems General: Fatigue, Malaise Objective Exam Vital Signs Vital Signs Date Time Temp Pulse Resp B/P (MAP) Pulse Ox O2 Delivery O2 Flow Rate FiO2 07/30/23 21:09 Nasal Cannula 2.00 07/30/23 20:38 35.7 81 16 118/75 (89) 99 Capillary Refill : General Appearance: No Apparent Distress, WD/WN, Chronically ill, Obese HEENT: PERRL/EOMI, Normal ENT Inspection, Pharynx Normal Neck: Full Range of Motion, Normal Inspection, Non Tender, Supple, Carotid Brui t Respiratory: Chest Non Tender, Lungs Clear, Normal Breath Sounds, No Accessory Muscle Use, No Respiratory Distress Cardiovascular: Regular Rate, Rhythm, No Edema, No Gallop, No JVD, No Murmur, Normal Peripheral Pulses Gastrointestinal: Normal Bowel Sounds, No Organomegaly, No Pulsatile Mass, Non Tender, Soft Back: Normal Inspection, No CVA Tenderness, No Vertebral Tenderness Extremity: Normal Capillary Refill, Normal Inspection, Normal Range of Motion, Non Tender, No Calf Tenderness, No Pedal Edema Neurologic/Psychiatric: Alert, Oriented x3, picking supervisor II-XII Norm as Tested, Abnormal Gait, Depressed Affect, Motor Weakness Skin: Normal Color, Warm/Dry Lymphatic: No Adenopathy Results/Procedures Lab Laboratory Tests 07/30/23 07:55 Patient resulted labs reviewed. FIM Transfers Therapy Code Descriptions/Definitions Functional [place] Measure: 0=Not Assessed/NA 4=Minimal Assistance 1=Total Assistance 5=Supervision or Setup 2=Maximal Assistance 6=Modified [place] 3=Moderate Assistance 7=Complete IndependenceSCALE: Activities may be completed with or without assistive devices. 4-Zcqgaxqqee-nyiazgr completes the activity by him/herself with no assistance from a helper. 5-Set-up or Clean-up Assistance-helper sets up or cleans up; patient completes activity. [place] assists only prior to or following the activity. 4-Supervision or Touching Assistance-helper provides verbal cues and/or touching/steadying and/or contact guard assistance as patient completes activity. Assistance may be provided throughout the activity or intermittently. 3-Partial/Moderate Assistance-helper does LESS THAN HALF the effort. [place] lifts, holds or supports trunk or limbs, but provides less than half the effort. 2-Substantial/Maximal Assistance-helper does MORE THAN HALF the effort. [place] lifts or holds trunk or limbs and provides more than half the effort. 8-Tjxldctqb-ywaqop does ALL the effort. Patient does none of the effort to complete the activity. Or, the assistance of 2 or more helpers is required for the patient to complete the activity. If activity was not attempted, code reason: 7-Patient Refused. 9-Not Applicable-not attempted and the patient did not perform the activity before the current illness, exacerbation or injury. 10-Not Attempted due to Environmental Limitations-(lack of equipment, weather restraints, etc.). 88-Not Attempted due to Medical Conditions or Safety Concerns. Roll Left to Right (QC): 4 (SBA-CGA with cues to use bedrail and push with opposite LE) Sit to Lying (QC): 2 (Max (A) of 1) Sit to Stand (QC): 1 Chair/Cvu-sk-Hfzdx Xfer(QC): 1 (using sit>stand lift) Car Transfer (QC): 88 Gait Training Does the Patient Walk?: No and Walking Goal IS indicated Walk 10 feet (QC): 88 Walk 50 ft with 2 Turns(QC): 88 Walk 150 ft (QC): 88 Walking 10ft/uneven surface-QC: 88 Wheelchair Training Does the Pt Use a Wheelchair?: Yes Distance: 60' x 2 Wheel 50 ft with 2 turns (QC): 4 (cues to navigating tight turns, O2 tank assist.) Wheel 150 ft (QC): 88 (fatigue does not allow for 150' distance.) Type of Wheelchair: Manual Stair Training 1 Step (curb) (QC): 88 4 Steps (QC): 9 12 Steps (QC): 9 Balance Picking up an Object (QC): 88 ADL-Treatment Eating (QC): 5 Oral Hygiene (QC): 4 (SBA seated at sink. 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 on prednisone taper dose and will receives IVIG every 2 weeks Chronic atrial fibrillation Anemia requiring transfusion on 07/25/2023 On oral anticoagulation for stroke prophylaxis Hypertension GERD Recent hyponatremia Recent hypokalemia Obesity Severe constipation no BM for 9 days upon arrival Resolved Plan: Bowel regimen PT and OT Home meds Prednisone taper dose Monitor closely 07/27/2023: Replace potassium Supportive care Fall risk 07/28/2023: Monitor hypoxia CXR and labs reviewed 07/29/2023: IVIG tomorrow Monitor closely 07/30/2023: IVIG today and Thursday Monitor closely (1) CIDP (chronic inflammatory demyelinating polyneuropathy) KONG TY DO Jul 30, 2023 07:46
[2023-07-30 08:03] LABS: BASOPHILS % (AUTO) 1 % (0-10); EOSINOPHILS # (AUTO) 0.2 10^3/uL (0.0-0.3); EOSINOPHILS % (AUTO) 3 % (0-10); HEMATOCRIT 29 % (35-52); HEMOGLOBIN 9.8 g/dL (11.5-16.0); LYMPHOCYTES # (AUTO) 1.5 10^3/uL (1.0-4.0); LYMPHOCYTES % (AUTO) 27 % (12-44); MEAN CORPUSCULAR HEMOGLOBIN 34 pg (25-34); MEAN CORPUSCULAR HGB CONC 34 g/dL (32-36); MEAN CORPUSCULAR VOLUME 100 fL (80-99); MEAN PLATELET VOLUME 9.1 fL (9.0-12.2); MONOCYTES # (AUTO) 0.3 10^3/uL (0.0-1.0); MONOCYTES % (AUTO) 5 % (0-12); NEUTROPHILS # (AUTO) 3.6 10^3/uL (1.8-7.8); NEUTROPHILS % (AUTO) 65 % (42-75); PLATELET COUNT 131 10^3/uL (130-400); WHITE BLOOD COUNT 5.5 10^3/uL (4.3-11.0)
[2023-07-30] MEDS: NICOTINE 21 MG PATCH TD SCH (08:34)
[2023-07-30] MEDS: APIXABAN 5 MG TABLET PO SCH ×2 (08:38→20:18)
[2023-07-30] MEDS: DOCUSATE SODIUM 100 MG CAPSULE PO SCH ×2 (08:38→20:18)
[2023-07-30] MEDS: POTASSIUM BICARB 20 MEQ effervescent TABLET PO SCH ×3 (08:38→20:18)
[2023-07-30] MEDS: SERTRALINE 50 MG TABLET PO SCH (08:38)
[2023-07-30] MEDS: SENNA W/DOCUSATE TABLET PO SCH ×2 (08:38→20:18)
[2023-07-30] MEDS: rOPINIRole 0.25 MG TABLET PO SCH ×3 (08:39→20:18)
[2023-07-30 08:43] LABS: BILIRUBIN,TOTAL 0.5 MG/DL (0.1-1.0); CALCIUM 8.5 MG/DL (8.5-10.1); CREATININE SERUM 0.75 MG/DL (0.60-1.30); MAGNESIUM 1.8 MG/DL (1.6-2.4); POTASSIUM 4.1 MMOL/L (3.6-5.0); TOTAL PROTEIN 7.5 GM/DL (6.4-8.2)
[2023-07-30] MEDS: NICOTINE PATCH REMOVAL TP SCH (08:54)
[2023-07-30] MEDS: MICONAZOLE 2% POWDER 90 GM TOP SCH ×2 (08:57→20:23)
--- NOTE | 2023-07-30 10:07 | Physical Therapy Daily Note ---
PT Daily Note-Current Subjective Pt laying Supine in bed upon arrival. Pt agrees to PT/OT co-treat. Pain Location: No Pain Reported Section J - Health Conditions 1. Rarely or not at all 2. Occasionally 3. Frequently 4. Almost constantly 8. Unable to answer Pain Effect on Sleep: 1 Pain Interference with Therapy: 1 Pain Interference w/Day-to-Day: 1 Mental Status Patient Orientation: Person, Place, Situation Transfers SCALE: Activities may be completed with or without assistive devices. 8-Qczipywihn-omzkxro completes the activity by him/herself with no assistance from a helper. 5-Set-up or Clean-up Assistance-helper sets up or cleans up; patient completes activity. [place] assists only prior to or following the activity. 4-Supervision or Touching Assistance-helper provides verbal cues and/or olayinka laverne/steadying and/or contact guard assistance as patient completes activity. Assistance may be provided throughout the activity or intermittently. 3-Partial/Moderate Assistance-helper does LESS THAN HALF the effort. [place] lifts, holds or supports trunk or limbs, but provides less than half the effort. 2-Substantial/Maximal Assistance-helper does MORE THAN HALF the effort. [place] lifts or holds trunk or limbs and provides more than half the effort. 3-Zedgswtrl-yrgeyu does ALL the effort. Patient does none of the effort to complete the activity. Or, the assistance of 2 or more helpers is required for the patient to complete the activity. If activity was not attempted, code reason: 7-Patient Refused. 9-Not Applicable-not attempted and the patient did not perform the activity before the current illness, exacerbation or injury. 10-Not Attempted due to Environmental Limitations-(lack of equipment, weather restraints, etc.). 88-Not Attempted due to Medical Conditions or Safety Concerns. Sit to Lying (QC): 4 Lying to Sitting/Side of Bed(Q: 4 Sit to Stand (QC): 1 Weight Bearing Weight Bearing/Tolerated Weight Bearing/Tolerated Wheelchair Training Does the Pt Use a Wheelchair?: Yes Wheel 50 ft with 2 turns (QC): 4 Wheel 150 ft (QC): 4 Type of Wheelchair: Manual Treatments OT/PT cotreat due to skill of 2 clinicians required which a rehabilitation teacher could not perform in order to coordinate UE/LEs, decrease fall risk, and due to pt's limitations in strength, activity tolerance, mobility and transfers. OT focused on UE placement, ADLs, and cues for sequencing and safety, PT focused on LE placement, gross overall movement, transfers and mobility. Pt in bed, transferred supine to sit EOB, SBA. Sit to stand lift utilized to transfer to w/c. Pt taken to therapy gym, partial stand from w/c with assist x2 while a 3rd person positioned sling of standing frame behind pt. Pt able to investor relations coordinator standing frame 3 mins, with moderate encouragement, cues to look forward and try to stand up straight. Pt report great fear of falling, therapeutic communication provided with education on safety of machine. Pt propelled w/c back to her room, slow pace, VCs required to continue task herself. Sit to stand lift used to change soiled brief, perform pericare, and transfer to recliner. Post tx, pt in recliner, call light in reach and all needs met. Assessment Current Status: Fair Progress Pt is gaining strength but limited by fear/anxiety. PT Stunner Animal Goals Stunner Animal Goals PT Skilled Nursing Goals Time Frame: Aug 17, 2023 Roll Left & Right (QC): 6 (in bed or recliner) Sit to Lying (QC): 6 (in bed or recliner.) Lying-Sitting on Side/Bed(QC): 4 Sit to Stand (QC): 4 Chair/Dqj-jg-Jgmcs Xfer(QC): 4 Toilet Transfer (QC): 4 Car Transfer (QC): 4 Does the Patient Walk: No and Walking Goal IS indicated Walk 10 feet (QC): 4 (with FWW or 4WW) Walk 50ft with 2 Turns (QC): 4 Walk 150 ft (QC): 9 Walking 10ft on Uneven Surface: 4 1 Step (curb) (QC): 3 4 Steps (QC): 9 12 Steps (QC): 9 Picking up an Object (QC): 4 Does the Pt use WC or Scooter?: Yes Wheel 50 feet with 2 turns (QC: 6 Type: Manual Wheel 150 feet: 6 Type: Motorized PT Plan Problem List Problem List: Activity Tolerance Treatment/Plan Treatment Plan: Continue Plan of Care Treatment Plan: Bed Mobility, Education, Functional Activity Pepe, Functional Strength, Group Therapy, Gait, Safety, Therapeutic Exercise, Transfers, Other (W/C mobility) Treatment Duration: Aug 17, 2023 Frequency: At least 5 of 7 days/Wk (IRF) Estimated Hrs Per Day: 1.5 hours per day Safety Risks/Education Patient Education: Transfer Techniques, Correct Positioning Teaching Recipient: Patient Teaching Methods: Discussion Response to Teaching: Verbalize Understanding Time Time In: 0900 Time Out: 1000 DATE: Jul 30, 2023 Total Billed Treatment Time: 60 Total Billed Treatment Co-treat w/OT (900-1000) 1, FA x3 (40m) & WCH (20m) NEO HERNADEZ PTA Jul 30, 2023 10:07
--- NOTE | 2023-07-30 10:13 | Occupational Ther Daily Note ---
OT Current Status-Daily Note Subjective Pt in bed, agreeable to therapy session. Pt appeared encouraged after tx, stating she feels like she is getting better. ADL-Treatment Therapy Code Descriptions/Definitions Functional [place] Measure: 0=Not Assessed/NA 4=Minimal Assistance 1=Total Assistance 5=Supervision or Setup 2=Maximal Assistance 6=Modified [place] 3=Moderate Assistance 7=Complete IndependenceSCALE: Activities may be completed with or without assistive devices. 3-Ebehgaeein-ktzksqn completes the activity by him/herself with no assistance from a helper. 5-Set-up or Clean-up Assistance-helper sets up or cleans up; patient completes activity. [place] assists only prior to or following the activity. 4-Supervision or Touching Assistance-helper provides verbal cues and/or touching/steadying and/or contact guard assistance as patient completes activ ity. Assistance may be provided throughout the activity or intermittently. 3-Partial/Moderate Assistance-helper does LESS THAN HALF the effort. [place] lifts, holds or supports trunk or limbs, but provides less than half the effort. 2-Substantial/Maximal Assistance-helper does MORE THAN HALF the effort. [place] lifts or holds trunk or limbs and provides more than half the effort. 7-Ccamhdgtt-uwmebe does ALL the effort. Patient does none of the effort to complete the activity. Or, the assistance of 2 or more helpers is required for the patient to complete the activity. If activity was not attempted, code reason: 7-Patient Refused. 9-Not Applicable-not attempted and the patient did not perform the activity before the current illness, exacerbation or injury. 10-Not Attempted due to Environmental Limitations-(lack of equipment, weather restraints, etc.). 88-Not Attempted due to Medical Conditions or Safety Concerns. Toileting Hygiene (QC): 1 Other Treatment OT/PT cotreat due to skill of 2 clinicians required which a rehabilitation aide/scheduler could not perform in order to coordinate UE/LEs, decrease fall risk, and due to pt's limitations in strength, activity tolerance, mobility and transfers. OT focused on UE placement, ADLs, and cues for sequencing and safety, PT focused on LE placement, gross overall movement, transfers and mobility. Pt in bed, tr ansferred supine to sit EOB, SBA. Sit to stand lift utilized to transfer to w/c. Pt taken to therapy gym, partial stand from w/c with assist x2 while a 3rd person positioned sling of standing frame behind pt. Pt able to rn circulating standing frame 3 mins, with moderate encouragement, cues to look forward and try to stand up straight. Pt report great fear of falling, therapeutic communication provided with education on safety of machine. Pt propelled w/c back to her room, slow pace, VCs required to continue task herself. Sit to stand lift used to change soiled brief, perform pericare, and transfer to recliner. Post tx, pt in recliner, call light in reach and all needs met. Education OT Patient Education: Correct positioning, Energy conservation, Exercise program, Modified ADL techniques, Progress toward Goal/Update tx plan, Purpose of tx/functional activities, Rehab process, Safety issues, Transfer techniques Teaching Recipient: Patient Teaching Methods: Discussion Response to Teaching: Verbalize Understanding, Reinforcement Needed OT Short Term Goals Short Term Goals Time Frame: Aug 12, 2023 Shower/bathe self: 3 Upper body dressin Lower body dressin OT Snf Goals Process Improvement Consultant Goals Time Frame: Aug 21, 2023 Acute change in mental status: 0 Inattention: 0 Disorganized thinkin Altered level of consciousness: 0 Eating (QC): 6 Oral Hygiene (QC): 6 Toileting Hygiene (QC): 6 Shower/Bathe Self (QC): 5 Upper Body Dressing (QC): 5 Lower Body Dressing (QC): 5 On/Off Footwear (QC): 3 Additional Goals: 1-Demonstrate ADL Tasks, 2-Verbalize Understanding, 3- ImproveStrength/Pepe 1=Demonstrate adherence to instructed precautions during ADL tasks. 2=Patient will verbalize/demonstrate understanding of assistive devices/modifications for ADL. 3=Patient will improve strength/tolerance for activity to enable patient to perform ADL's. OT Education/Plan Problem List/Assessment Assessment: Decreased Activ Tolerance, Decreased Safety Aware, Decreased UE Strength, Dependent Transfers, Impaired Funct Balance, Impaired I ADL's, Impaired Self-Care Skills Discharge Recommendations Plan/Recommendations: Continue POC Treatment Plan/Plan of Care Patient would benefit from OT for education, treatment and training to promote independence in ADL's, mobility, safety and/or upper extremity function for ADL' s. Plan of Care: ADL Retraining, Functional Mobility, Group Exercise/Act as Ind, UE Funct Exercise/Act Treatment Duration: Aug 21, 2023 Frequency: At least 5 of 7 days/Wk (IRF) Estimated Hrs Per Day: 1 hour per day Agreement: Yes Rehab Potential: Fair Time Start Time: 09:00 Stop Time: 10:00 DATE: Jul 30, 2023 Total Time Billed (hr/min): 60 Billed Treatment Time cotreat x60' 1, ADL (15'), FA 3 (45') ROHITH BLANTON OT Jul 30, 2023 10:13
[2023-07-30] MEDS ORDERED: IMMUNE GLOBULIN GAMMA IV SCH (11:00)
[2023-07-30] MEDS ORDERED: NS IV 1000 ML 1,000 ML IV SCH (12:45)
[2023-07-30] MEDS ORDERED: NS IV 500 ML 500 ML IV PRN (12:45)
[2023-07-30] MEDS: NS IV 1000 ML 1,000 ML IV PRN (13:08)
[2023-07-30] MEDS: IMMUNE GLOBULIN,GAMMA 200 ML IV SCH ×3 (13:08→17:17)
--- NOTE | 2023-07-30 14:33 | Occupational Ther Daily Note ---
OT Current Status-Daily Note Subjective Pt in recliner, agreeable to OT Tx. RN present to begin preparation for IVIG and vitals, states pt OK for therapy. ADL-Treatment Therapy Code Descriptions/Definitions Functional [place] Measure: 0=Not Assessed/NA 4=Minimal Assistance 1=Total Assistance 5=Supervision or Setup 2=Maximal Assistance 6=Modified [place] 3=Moderate Assistance 7=Complete IndependenceSCALE: Activities may be completed with or without assistive devices. 2-Zxgqxgsmxu-aamjfre completes the activity by him/herself with no assistance from a helper. 5-Set-up or Clean-up Assistance-helper sets up or cleans up; patient completes activity. [place] assists only prior to or following the activity. 4-Supervision or Touching Assistance-helper provides verbal cues and/or touching/steadying and/or contact guard assistance as patient completes activity. Assistance may be provided throughout the activity or intermittently. 3-Partial/Moderate Assistance-helper does LESS THAN HALF the effort. [place] lifts, holds or supports trunk or limbs, but provides less than half the effort. 2-Substantial/Maximal Assistance-helper does MORE THAN HALF the effort. [place] lifts or holds trunk or limbs and provides more than half the effort. 6-Yasxwkcwd-wnftgz does ALL the effort. Patient does none of the effort to complete the activity. Or, the assistance of 2 or more helpers is required for the patient to complete the activity. If activity was not attempted, code reason: 7-Patient Refused. 9-Not Applicable-not attempted and the patient did not perform the activity before the current illness, exacerbation or injury. 10-Not Attempted due to Environmental Limitations-(lack of equipment, weather restraints, etc.). 88-Not Attempted due to Medical Conditions or Safety Concerns. Other Treatment Pt in recliner, agreeable to OT Tx. Pt took medications provided by RN independently, using UEs to reach for drinks on tray table. Pt then brushed her hair and washed her face with set up assistance, requiring min redirection to tasks due to distractibility. Post tx, pt in recliner, call light in reach and all needs met. OT Short Term Goals Short Term Goals Time Frame: Aug 12, 2023 Shower/bathe self: 3 Upper body dressin Lower body dressin OT Assisted Goals Assisted Goals Time Frame: Aug 21, 2023 Acute change in mental status: 0 Inattention: 0 Disorganized thinkin Altered level of consciousness: 0 Eating (QC): 6 Oral Hygiene (QC): 6 Toileting Hygiene (QC): 6 Shower/Bathe Self (QC): 5 Upper Body Dressing (QC): 5 Lower Body Dressing (QC): 5 On/Off Footwear (QC): 3 Additional Goals: 1-Demonstrate ADL Tasks, 2-Verbalize Understanding, 3- ImproveStrength/Pepe 1=Demonstrate adherence to instructed precautions during ADL tasks. 2=Patient will verbalize/demonstrate understanding of assistive devices/modifications for ADL. 3=Patient will improve strength/tolerance for activity to enable patient to perform ADL's. OT Education/Plan Problem List/Assessment Assessment: Decreased Activ Tolerance, Decreased UE Strength, Impaired Funct Balance, Impaired I ADL's, Impaired Self-Care Skills Discharge Recommendations Plan/Recommendations: Continue POC Treatment Plan/Plan of Care Patient would benefit from OT for education, treatment and training to promote independence in ADL's, mobility, safety and/or upper extremity function for ADL's. Plan of Care: ADL Retraining, Functional Mobility, Group Exercise/Act as Ind, UE Funct Exercise/Act Treatment Duration: Aug 21, 2023 Frequency: At least 5 of 7 days/Wk (IRF) Estimated Hrs Per Day: 1 hour per day Agreement: Yes Rehab Potential: Fair Time Start Time: 13:00 Stop Time: 13:30 DATE: Jul 30, 2023 Total Time Billed (hr/min): 30 Billed Treatment Time 1, ADL 2 ROHITH BLANTON OT Jul 30, 2023 14:33
--- NOTE | 2023-07-30 15:02 | Physical Therapy Daily Note ---
PT Daily Note-Current Subjective Pt sitting in recliner on IV upon arrival. Pt agrees to PT. Pain Location: No Pain Reported Section J - Health Conditions 1. Rarely or not at all 2. Occasionally 3. Frequently 4. Almost constantly 8. Unable to answer Pain Effect on Sleep: 1 Pain Interference with Therapy: 1 Pain Interference w/Day-to-Day: 1 Mental Status Patient Orientation: Person, Place, Situation Attachments: IV Transfers SCALE: Activities may be completed with or without assistive devices. 2-Detlwdvwhb-mzbekxc completes the activity by him/herself with no assistance from a helper. 5-Set-up or Clean-up Assistance-helper sets up or cleans up; patient completes activity. [place] assists only prior to or following the activity. 4-Supervision or Touching Assistance-helper provides verbal cues and/or touching/steadying and/or contact guard assistance as patient completes activity. Assistance may be provided throughout the activity or intermittently. 3-Partial/Moderate Assistance-helper does LESS THAN HALF the effort. [place] lifts, holds or supports trunk or limbs, but provides less than half the effort. 2-Substantial/Maximal Assistance-helper does MORE THAN HALF the effort. [place] lifts or holds trunk or limbs and provides more than half the effort. 3-Osbbmnljy-zdruga does ALL the effort. Patient does none of the effort to complete the activity. Or, the assistance of 2 or more helpers is required for the patient to complete the activity. If activity was not attempted, code reason: 7-Patient Refused. 9-Not Applicable-not attempted and the patient did not perform the activity before the current illness, exacerbation or injury. 10-Not Attempted due to Environmental Limitations-(lack of equipment, weather restraints, etc.). 88-Not Attempted due to Medical Conditions or Safety Concerns. Weight Bearing Weight Bearing/Tolerated Weight Bearing/Tolerated Exercises Supine Ex: Ankle pumps, Quad Set, Glut sets, Heel Slides, Hip abd/add Supine Reps: 10 (2 sets) Treatments Pt completes Supine EX in recliner w/RB as needed for fatigue. Assessment Current Status: Good Progress Pt still fatigues and needs RB but is gaining strength. PT Aircraft Machinist Helper Goals Aircraft Machinist Helper Goals PT Aircraft Machinist Helper Goals Time Frame: Aug 17, 2023 Roll Left & Right (QC): 6 (in bed or recliner) Sit to Lying (QC): 6 (in bed or recliner.) Lying-Sitting on Side/Bed(QC): 4 Sit to Stand (QC): 4 Chair/Yag-ob-Kndvv Xfer(QC): 4 Toilet Transfer (QC): 4 Car Transfer (QC): 4 Does the Patient Walk: No and Walking Goal IS indicated Walk 10 feet (QC): 4 (with FWW or 4WW) Walk 50ft with 2 Turns (QC): 4 Walk 150 ft (QC): 9 Walking 10ft on Uneven Surface: 4 1 Step (curb) (QC): 3 4 Steps (QC): 9 12 Steps (QC): 9 Picking up an Object (QC): 4 Does the Pt use WC or Scooter?: Yes Wheel 50 feet with 2 turns (QC: 6 Type: Manual Wheel 150 feet: 6 Type: Motorized PT Plan Problem List Problem List: Activity Tolerance, Functional Strength Treatment/Plan Treatment Plan: Continue Plan of Care Treatment Plan: Bed Mobility, Education, Functional Activity Pepe, Functional Strength, Group Therapy, Gait, Safety, Therapeutic Exercise, Transfers, Other (W/C mobility) Treatment Duration: Aug 17, 2023 Frequency: At least 5 of 7 days/Wk (IRF) Estimated Hrs Per Day: 1.5 hours per day Safety Risks/Education Patient Education: Correct Positioning Teaching Recipient: Patient Teaching Methods: Discussion Response to Teaching: Verbalize Understanding Time Time In: 1400 Time Out: 1430 DATE: Jul 30, 2023 Total Billed Treatment Time: 30 Total Billed Treatment 1, EX x2 (30m) NEO HERNADEZ PTA Jul 30, 2023 15:02
[2023-07-31] VITALS (10 sets, daily range): BP systolic 124–149; BP diastolic 60–87
[2023-07-31] MEDS: SUCRALFATE 1 GM TABLET PO SCH ×3 (06:30→18:32)
[2023-07-31] MEDS: PANTOPRAZOLE 40 MG TABLET PO SCH (06:30)
[2023-07-31] MEDS: LEVOTHYROXINE 125 MCG TABLET PO SCH (06:30)
[2023-07-31] MEDS: THERAPEUTIC MULTIVITAMIN W/MINERALS TABLET PO SCH (06:30)
--- NOTE | 2023-07-31 08:11 | Occupational Ther Daily Note ---
OT Current Status-Daily Note Subjective Pt agreeable to OT Tx. Mental Status/Objective Patient Orientation: Normal For Age Attachments: Oxygen (1.5L) ADL-Treatment Therapy Code Descriptions/Definitions Functional [place] Measure: 0=Not Assessed/NA 4=Minimal Assistance 1=Total Assistance 5=Supervision or Setup 2=Maximal Assistance 6=Modified [place] 3=Moderate Assistance 7=Complete IndependenceSCALE: Activities may be completed with or without assistive devices. 3-Boxvvzzzxd-kkvsbej completes the activity by him/herself with no assistance from a helper. 5-Set-up or Clean-up Assistance-helper sets up or cleans up; patient completes activity. [place] assists only prior to or following the activity. 4-Supervision or Touching Assistance-helper provides verbal cues and/or touching/steadying and/or contact guard assistance as patient completes activity. Assistance may be provided throughout the activity or intermittently. 3-Partial/Moderate Assistance-helper does LESS THAN HALF the effort. [place] lifts, holds or supports trunk or limbs, but provides less than half the effort. 2-Substantial/Maximal Assistance-helper does MORE THAN HALF the effort. [place] lifts or holds trunk or limbs and provides more than half the effort. 3-Bpxnegola-jfaudu does ALL the effort. Patient does none of the effort to com plete the activity. Or, the assistance of 2 or more helpers is required for the patient to complete the activity. If activity was not attempted, code reason: 7-Patient Refused. 9-Not Applicable-not attempted and the patient did not perform the activity before the current illness, exacerbation or injury. 10-Not Attempted due to Environmental Limitations-(lack of equipment, weather restraints, etc.). 88-Not Attempted due to Medical Conditions or Safety Concerns. Shower/Bathe Self (QC): 1 (use of lift to wash buttocks) Lower Body Dressing (QC): 1 On/Off Footwear: 1 Toileting Hygiene (QC): 1 Other Treatment [id number]: OT tx. Pt completed sponge bath at bed level. Sit to stand lift required to wash buttocks. Total assist required for footwear donning/doffing gripper socks and tedhose. [id number]: OT/PT cotreat due to skill of 2 clinicians required which a rehab director occupational therapist could not perform in order to coordinate UE/LEs, decrease fall risk, and due to pt's limitations in strength, activity tolerance, mobility and transfers. OT focused on UE placement, ADLs, and cues for sequencing and safety, PT focused on LE placement, gross overall movement, transfers and mobility. Pt transferred supine to sit EOB, SBA. Sit to stand lift utilized to transfer to w/c. Pt propelled w/c part of the way to therapy gym, then assisted the rest of the way due to fatigue. Pt stood in parallel bars x3, mod-max A x2 required to obtain even a partial stand. Pt able to stand upright x1 trial, and partial stand x2. Pt taken back to room. Sit to stand lift utilized to transfer to recliner. Pericare and posterior hygiene performed utilizing lift, and clean brief donned. Post tx, pt in recliner, call light in reach and all needs met. Education OT Patient Education: Correct positioning, Energy conservation, Modified ADL techniques, Progress toward Goal/Update tx plan, Purpose of tx/functional activities, Rehab process Teaching Recipient: Patient Teaching Methods: Discussion Response to Teaching: Verbalize Understanding OT Short Term Goals Short Term Goals Time Frame: Aug 12, 2023 Shower/bathe self: 3 Upper body dressin Lower body dressin OT [facility] Goals [facility] Goals Time Frame: Aug 21, 2023 Acute change in mental status: 0 Inattention: 0 Disorganized thinkin Altered level of consciousness: 0 Eating (QC): 6 Oral Hygiene (QC): 6 Toileting Hygiene (QC): 6 Shower/Bathe Self (QC): 5 Upper Body Dressing (QC): 5 Lower Body Dressing (QC): 5 On/Off Footwear (QC): 3 Additional Goals: 1-Demonstrate ADL Tasks, 2-Verbalize Understanding, 3-ImproveStrength/Pepe 1=Demonstrate adherence to instructed precautions during ADL tasks. 2=Patient will verbalize/demonstrate understanding of assistive devices/modifications for ADL. 3=Patient will improve strength/tolerance for activity to enable patient to perform ADL's. OT Education/Plan Problem List/Assessment Assessment: Decreased Activ Tolerance, Decreased UE Strength, Dependent Transfers, Impaired Funct Balance, Impaired I ADL's, Impaired Self-Care Skills Discharge Recommendations Plan/Recommendations: Continue POC Treatment Plan/Plan of Care Patient would benefit from OT for education, treatment and training to promote independence in ADL's, mobility, safety and/or upper extremity function for ADL's. Plan of Care: ADL Retraining, Functional Mobility, Group Exercise/Act as Ind, UE Funct Exercise/Act Treatment Duration: Aug 21, 2023 Frequency: At least 5 of 7 days/Wk (IRF) Estimated Hrs Per Day: 1 hour per day Agreement: Yes Rehab Potential: Fair Time Start Time: 07:30 Stop Time: 09:00 DATE: Jul 31, 2023 Total Time Billed (hr/min): 90 Billed Treatment Time OT tx 30', cotreat 60' 1, ADL 3 (45'), FA 3 (45') ROHITH BLANTON OT Jul 31, 2023 08:11
[2023-07-31] MEDS: SENNA W/DOCUSATE TABLET PO SCH ×3 (09:40→20:47)
[2023-07-31] MEDS: DOCUSATE SODIUM 100 MG CAPSULE PO SCH ×3 (09:40→20:47)
[2023-07-31] MEDS: NICOTINE 21 MG PATCH TD SCH (10:17)
[2023-07-31] MEDS: POTASSIUM BICARB 20 MEQ effervescent TABLET PO SCH ×3 (10:17→20:47)
[2023-07-31] MEDS: APIXABAN 5 MG TABLET PO SCH ×2 (10:18→20:47)
[2023-07-31] MEDS: rOPINIRole 0.25 MG TABLET PO SCH ×3 (10:18→20:47)
[2023-07-31] MEDS: SERTRALINE 50 MG TABLET PO SCH (10:28)
[2023-07-31] MEDS: NS IV 1000 ML 1,000 ML IV PRN (10:28)
--- NOTE | 2023-07-31 10:43 | PM&R Progress Note ---
Subjective HPI/CC On Admission Date Seen by Provider: Jul 31, 2023 Time Seen by Provider: 10:45 Subjective/Events-last exam 07/31/2023: Still very weak Lungs remain stable No pain is reported IVIG infusing 07/30/2023: Still very weak IVIG today and tomorrow IVF in-between No falls but increased risk 07/29/2023: Severe weakness noted IVIG tomorrow and she hopes it will give her a little bit of energy No falls but high risk 07/28/2023: Doing well until hypotensive and hypoxic this am No falls Very weak BM+ 07/27/2023: Patient doing a lot better No pain is reported No falls Weakness is profound Requesting team patch Miconazole powder will be initiated Review of Systems General: Fatigue, Malaise Objective Exam Vital Signs Vital Signs Date Time Temp Pulse Resp B/P (MAP) Pulse Ox O2 Delivery O2 Flow Rate FiO2 07/31/23 21:00 100 Nasal Cannula 2.00 07/31/23 20:05 36.3 85 18 124/65 (84) Capillary Refill : General Appearance: No Apparent Distress, WD/WN, Chronically ill, Obese HEENT: PERRL/EOMI, Normal ENT Inspection, Pharynx Normal Neck: Full Range of Motion, Normal Inspection, Non Tender, Supple, Carotid Bruit Respiratory: Chest Non Tender, Lungs Clear, Normal Breath Sounds, No Accessory Muscle Use, No Respiratory Distress Cardiovascular: Regular Rate, Rhythm, No Edema, No Gallop, No JVD, No Murmur, Normal Peripheral Pulses Gastrointestinal: Normal Bowel Sounds, No Organomegaly, No Pulsatile Mass, Non Tender, Soft Back: Normal Inspection, No CVA Tenderness, No Vertebral Tenderness Extremity: Normal Capillary Refill, Normal Inspection, Normal Range of Motion, Non Tender, No Calf Tenderness, No Pedal Edema Neurologic/Psychiatric: Alert, Oriented x3, colorman II-XII Norm as Tested, Abnormal Gait, Depressed Affect, Motor Weakness Skin: Normal Color, Warm/Dry Lymphatic: No Adenopathy Results/Procedures Lab Patient resulted labs reviewed. FIM Transfers Therapy Code Descriptions/Definitions Functional [place] Measure: 0=Not Assessed/NA 4=Minimal Assistance 1=Total Assistance 5=Supervision or Setup 2=Maximal Assistance 6=Modified [place] 3=Moderate Assistance 7=Complete IndependenceSCALE: Activities may be completed with or without assistive devices. 9-Ptwonsoqfg-aoeujvu completes the activity by him/herself with no assistance from a helper. 5-Set-up or Clean-up Assistance-helper sets up or cleans up; patient completes activity. [place] assists only prior to or following the activity. 4-Supervision or Touching Assistance-helper provides verbal cues and/or touching/steadying and/or contact guard assistance as patient completes activity. Assistance may be provided throughout the activity or intermittently. 3-Partial/Moderate Assistance-helper does LESS THAN HALF the effort. [place] li fts, holds or supports trunk or limbs, but provides less than half the effort. 2-Substantial/Maximal Assistance-helper does MORE THAN HALF the effort. [place] lifts or holds trunk or limbs and provides more than half the effort. 5-Hputpxsvj-polbjy does ALL the effort. Patient does none of the effort to complete the activity. Or, the assistance of 2 or more helpers is required for the patient to complete the activity. If activity was not attempted, code reason: 7-Patient Refused. 9-Not Applicable-not attempted and the patient did not perform the activity before the current illness, exacerbation or injury. 10-Not Attempted due to Environmental Limitations-(lack of equipment, weather restraints, etc.). 88-Not Attempted due to Medical Conditions or Safety Concerns. Roll Left to Right (QC): 4 (SBA-CGA with cues to use bedrail and push with opposite LE) Sit to Lying (QC): 4 Sit to Stand (QC): 1 Chair/Eff-yv-Nozxx Xfer(QC): 1 (using sit>stand lift) Car Transfer (QC): 88 Gait Training Does the Patient Walk?: No and Walking Goal IS indicated Walk 10 feet (QC): 88 Walk 50 ft with 2 Turns(QC): 88 Walk 150 ft (QC): 88 Walking 10ft/uneven surface-QC: 88 Wheelchair Training Does the Pt Use a Wheelchair?: Yes Distance: 60' x 2 Wheel 50 ft with 2 turns (QC): 4 Wheel 150 ft (QC): 4 Type of Wheelchair: Manual Stair Training 1 Step (curb) (QC): 88 4 Steps (QC): 9 12 Steps (QC): 9 Balance Picking up an Object (QC): 88 ADL-Treatment Eating (QC): 5 Oral Hygiene (QC): 4 (SBA seated at sink. 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 on prednisone taper dose and will receives IVIG every 2 weeks Chronic atrial fibrillation Anemia requiring transfusion on 07/25/2023 On oral anticoagulation for stroke prophylaxis Hypertension GERD Recent hyponatremia Recent hypokalemia Obesity Severe constipation no BM for 9 days upon arrival Resolved Plan: Bowel regimen PT and OT Home meds Prednisone taper dose Monitor closely 07/27/2023: Replace potassium Supportive care Fall risk 07/28/2023: Monitor hypoxia CXR and labs reviewed 07/29/2023: IVIG tomorrow Monitor closely 07/30/2023: IVIG today and Thursday Monitor closely 07/31/2023: Supportive care IVIG (1) CIDP (chronic inflammatory demyelinating polyneuropathy) KONG TY DO Jul 31, 2023 10:42
[2023-07-31] MEDS ORDERED: IMMUNE GLOBULIN GAMMA IV SCH (11:00)
--- NOTE | 2023-07-31 11:03 | Physical Therapy Daily Note ---
PT Daily Note-Current Pain Section J - Health Conditions 1. Rarely or not at all 2. Occasionally 3. Frequently 4. Almost constantly 8. Unable to answer Pain Effect on Sleep: 1 Pain Interference with Therapy: 1 Pain Interference w/Day-to-Day: 1 Transfers SCALE: Activities may be completed with or without assistive devices. 3-Spdpvxnpxa-vjwgwiz completes the activity by him/herself with no assistance from a helper. 5-Set-up or Clean-up Assistance-helper sets up or cleans up; patient completes activity. [place] assists only prior to or following the activity. 4-Supervision or Touching Assistance-helper provides verbal cues and/or touching/steadying and/or contact guard assistance as patient completes activity. Assistance may be provided throughout the activity or intermittently. 3-Partial/Moderate Assistance-helper does LESS THAN HALF the effort. [place] lifts, holds or supports trunk or limbs, but provides less than half the effort. 2-Substantial/Maximal Assistance-helper does MORE THAN HALF the effort. [place] lifts or holds trunk or limbs and provides more than half the effort. 5-Akdoiijcj-klysae does ALL the effort. Patient does none of the effort to complete the activity. Or, the assistance of 2 or more helpers is required for the patient to complete the activity. If activity was not attempted, code reason: 7-Patient Refused. 9-Not Applicable-not attempted and the patient did not perform the activity before the current illness, exacerbation or injury. 10-Not Attempted due to Environmental Limitations-(lack of equipment, weather restraints, etc.). 88-Not Attempted due to Medical Conditions or Safety Concerns. Lying to Sitting/Side of Bed(Q: 5 Sit to Stand (QC): 1 Weight Bearing Weight Bearing/Tolerated Weight Bearing/Tolerated Treatments [id number]: OT/PT cotreat due to skill of 2 clinicians required which a rehab rn could not perform in order to coordinate UE/LEs, decrease fall risk, and due to pt's limitations in strength, activity tolerance, mobility and transfers. OT focused on UE placement, ADLs, and cues for sequencing and safety, PT focused on LE placement, gross overall movement, transfers and mobility. Pt transferred supine to sit EOB, SBA. Sit to stand lift utilized to transfer to w/c. Pt propelled w/c part of the way to therapy gym, then assisted the rest of the way due to fatigue. Pt stood in parallel bars x3, mod-max A x2 required to obtain even a partial stand. Pt able to stand upright x1 trial, and partial stand x2. Pt taken back to room. Sit to stand lift utilized to transfer to recliner. Pericare and posterior hygiene performed utilizing lift, and clean brief donned. Post tx, pt in recliner, call light in reach and all needs met. Assessment Current Status: Good Progress Pt is self limiting at times due to anxiousness but improving with increased strength and mobility. PT Usp Goals Usp Goals PT Lead Performance Support Analyst Goals Time Frame: Aug 17, 2023 Roll Left & Right (QC): 6 (in bed or recliner) Sit to Lying (QC): 6 (in bed or recliner.) Lying-Sitting on Side/Bed(QC): 4 Sit to Stand (QC): 4 Chair/Fcr-up-Ntxlt Xfer(QC): 4 Toilet Transfer (QC): 4 Car Transfer (QC): 4 Does the Patient Walk: No and Walking Goal IS indicated Walk 10 feet (QC): 4 (with FWW or 4WW) Walk 50ft with 2 Turns (QC): 4 Walk 150 ft (QC): 9 Walking 10ft on Uneven Surface: 4 1 Step (curb) (QC): 3 4 Steps (QC): 9 12 Steps (QC): 9 Picking up an Object (QC): 4 Does the Pt use WC or Scooter?: Yes Wheel 50 feet with 2 turns (QC: 6 Type: Manual Wheel 150 feet: 6 Type: Motorized PT Plan Problem List Problem List: Activity Tolerance, Transfer Treatment/Plan Treatment Plan: Continue Plan of Care Treatment Plan: Bed Mobility, Education, Functional Activity Pepe, Functional Strength, Group Therapy, Gait, Safety, Therapeutic Exercise, Transfers, Other (W/C mobility) Treatment Duration: Aug 17, 2023 Frequency: At least 5 of 7 days/Wk (IRF) Estimated Hrs Per Day: 1.5 hours per day Safety Risks/Education Patient Education: Transfer Techniques, Correct Positioning Teaching Recipient: Patient Teaching Methods: Discussion Response to Teaching: Verbalize Understanding Time Time In: 800 Time Out: 900 DATE: Jul 31, 2023 Total Billed Treatment Time: 60 Total Billed Treatment Co-treat w/OT for 60m 1, FA x2 (30m), [facility] (20m) & NM (10m) NEO HERNADEZ SENIOR FIELD SERVICE ENGINEER Jul 31, 2023 11:03
[2023-07-31] MEDS ORDERED: BISACODYL 10 MG SUPPOSITORY PR NR (11:30)
[2023-07-31] MEDS: IMMUNE GLOBULIN,GAMMA 200 ML IV SCH ×2 (11:52→13:37)
[2023-07-31] MEDS: NICOTINE PATCH REMOVAL TP SCH (12:18)
[2023-07-31] MEDS: MICONAZOLE 2% POWDER 90 GM TOP SCH ×2 (12:19→20:48)
--- NOTE | 2023-07-31 14:32 | Physical Therapy Daily Note ---
PT Daily Note-Current Subjective Pt reclined in recliner rec. IV upon arrival. Pt agrees to PT. Pain Location: No Pain Reported Section J - Health Conditions 1. Rarely or not at all 2. Occasionally 3. Frequently 4. Almost constantly 8. Unable to answer Pain Effect on Sleep: 1 Pain Interference with Therapy: 1 Pain Interference w/Day-to-Day: 1 Mental Status Patient Orientation: Person, Place, Situation Attachments: IV Transfers SCALE: Activities may be completed with or without assistive devices. 7-Asdqvsmtow-wfiuelo completes the activity by him/herself with no assistance from a helper. 5-Set-up or Clean-up Assistance-helper sets up or cleans up; patient completes activity. [place] assists only prior to or following the activity. 4-Supervision or Touching Assistance-helper provides verbal cues and/or touching/steadying and/or contact guard assistance as patient completes activity. Assistance may be provided throughout the activity or intermittently. 3-Partial/Moderate Assistance-helper does LESS THAN HALF the effort. [place] lifts, holds or supports trunk or limbs, but provides less than half the effort. 2-Substantial/Maximal Assistance-helper does MORE THAN HALF the effort. [place] lifts or holds trunk or limbs and provides more than half the effort. 4-Frdvtxtbj-owopou does ALL the effort. Patient does none of the effort to complete the activity. Or, the assistance of 2 or more helpers is required for the patient to complete the activity. If activity was not attempted, code reason: 7-Patient Refused. 9-Not Applicable-not attempted and the patient did not perform the activity before the current illness, exacerbation or injury. 10-Not Attempted due to Environmental Limitations-(lack of equipment, weather restraints, etc.). 88-Not Attempted due to Medical Conditions or Safety Concerns. Weight Bearing Weight Bearing/Tolerated Weight Bearing/Tolerated Exercises Supine Ex: Ankle pumps, Quad Set, Glut sets, Heel Slides, Scooting, Hip abd/add Supine Reps: 10 (2 sets) Treatments Pt completed Supine EX in recliner w/RB as needed. Pt resting w/all needs met, call light in hand. Assessment Current Status: Good Progress Pt fatigued at end of tx and fall asleep. PT Licensed Nurse Practitioner Goals Skilled Nursing Goals PT Licensed Nurse Practitioner Goals Time Frame: Aug 17, 2023 Roll Left & Right (QC): 6 (in bed or recliner) Sit to Lying (QC): 6 (in bed or recliner.) Lying-Sitting on Side/Bed(QC): 4 Sit to Stand (QC): 4 Chair/Eun-qs-Qdlsh Xfer(QC): 4 Toilet Transfer (QC): 4 Car Transfer (QC): 4 Does the Patient Walk: No and Walking Goal IS indicated Walk 10 feet (QC): 4 (with FWW or 4WW) Walk 50ft with 2 Turns (QC): 4 Walk 150 ft (QC): 9 Walking 10ft on Uneven Surface: 4 1 Step (curb) (QC): 3 4 Steps (QC): 9 12 Steps (QC): 9 Picking up an Object (QC): 4 Does the Pt use WC or Scooter?: Yes Wheel 50 feet with 2 turns (QC: 6 Type: Manual Wheel 150 feet: 6 Type: Motorized PT Plan Problem List Problem List: Activity Tolerance, Functional Strength Treatment/Plan Treatment Plan: Continue Plan of Care Treatment Plan: Bed Mobility, Education, Functional Activity [place]pe, Functional Strength, Group Therapy, Gait, Safety, Therapeutic Exercise, Transfers, Other (W/C mobility) Treatment Duration: Aug 17, 2023 Frequency: At least 5 of 7 days/Wk (IRF) Estimated Hrs Per Day: 1.5 hours per day Safety Risks/Education Patient Education: Correct Positioning Teaching Recipient: Patient Teaching Methods: Discussion Response to Teaching: Verbalize Understanding Time Time In: 1330 Time Out: 1400 DATE: Jul 31, 2023 Total Billed Treatment Time: 30 Total Billed Treatment 1, EX x2 (30m) NEO HERNADEZ SURVEY PARTY CHIEF Jul 31, 2023 14:32
[2023-08-01] MEDS: SUCRALFATE 1 GM TABLET PO SCH ×4 (00:36→18:10)
[2023-08-01] MEDS: LEVOTHYROXINE 125 MCG TABLET PO SCH (06:03)
[2023-08-01] MEDS: PANTOPRAZOLE 40 MG TABLET PO SCH (06:03)
[2023-08-01] MEDS: THERAPEUTIC MULTIVITAMIN W/MINERALS TABLET PO SCH (06:03)
--- NOTE | 2023-08-01 06:16 | PM&R Progress Note ---
Subjective HPI/CC On Admission Date Seen by Provider: Aug 01, 2023 Time Seen by Provider: 09:00 Subjective/Events-last exam 08/01/2023: Patient doing well Getting stronger since IVIG No falls No pain Eating and drinking well 07/31/2023: Still very weak Lungs remain stable No pain is reported IVIG infusing 07/30/2023: Still very weak IVIG today and tomorrow IVF in-between No falls but increased risk 07/29/2023: Severe weakness noted IVIG tomorrow and she hopes it will give her a little bit of energy No falls but high risk 07/28/2023: Doing well until hypotensive and hypoxic this am No falls Very weak BM+ 07/27/2023: Patient doing a lot better No pain is reported No falls Weakness is profound Requesting team patch Miconazole powder will be initiated Review of Systems General: Fatigue, Malaise Objective Exam Vital Signs Vital Signs Date Time Temp Pulse Resp B/P (MAP) Pulse Ox O2 Delivery O2 Flow Rate FiO2 08/02/23 06:03 Nasal Cannula 2.00 08/01/23 19:44 36.6 75 18 116/73 (87) 97 Capillary Refill : General Appearance: No Apparent Distress, WD/WN, Chronically ill, Obese HEENT: PERRL/EOMI, Normal ENT Inspection, Pharynx Normal Neck: Full Range of Motion, Normal Inspection, Non Tender, Supple, Carotid Bruit Respiratory: Chest Non Tender, Lungs Clear, Normal Breath Sounds, No Accessory Muscle Use, No Respiratory Distress Cardiovascular: Regular Rate, Rhythm, No Edema, No Gallop, No JVD, No Murmur, Normal Peripheral Pulses Gastrointestinal: Normal Bowel Sounds, No Organomegaly, No Pulsatile Mass, Non Tender, Soft Back: Normal Inspection, No CVA Tenderness, No Vertebral Tenderness Extremity: Normal Capillary Refill, Normal Inspection, Normal Range of Motion, Non Tender, No Calf Tenderness, No Pedal Edema Neurologic/Psychiatric: Alert, Oriented x3, coding quality analyst II-XII Norm as Tested, Abnormal Gait, Depressed Affect, Motor Weakness Skin: Normal Color, Warm/Dry Lymphatic: No Adenopathy Results/Procedures Lab Patient resulted labs reviewed. FIM Transfers Therapy Code Descriptions/Definitions Functional [place] Measure: 0=Not Assessed/NA 4=Minimal Assistance 1=Total Assistance 5=Supervision or Setup 2=Maximal Assistance 6=Modified [place] 3=Moderate Assistance 7=Complete IndependenceSCALE: Activities may be completed with or without assistive devices. 2-Kzwkqgxczh-yepsqgy completes the activity by him/herself with no assistance from a helper. 5-Set-up or Clean-up Assistance-helper sets up or cleans up; patient completes activity. [place] assists only prior to or following the activity. 4-Supervision or Touching Assistance-helper provides verbal cues and/or touching/steadying and/or contact guard assistance as patient completes activity. Assistance may be provided throughout the activity or intermittently. 3-Partial/Moderate Assistance-helper does LESS THAN HALF the effort. [place] lifts, holds or supports trunk or limbs, but provides less than half the effort. 2-Substantial/Maximal Assistance-helper does MORE THAN HALF the effort. [place] lifts or holds trunk or limbs and provides more than half the effort. 9-Wctukxjkf-bvnqnf does ALL the effort. Patient does none of the effort to complete the activity. Or, the assistance of 2 or more helpers is required for the patient to complete the activity. If activity was not attempted, code reason: 7-Patient Refused. 9-Not Applicable-not attempted and the patient did not perform the activity before the current illness, exacerbation or injury. 10-Not Attempted due to Environmental Limitations-(lack of equipment, weather restraints, etc.). 88-Not Attempted due to Medical Conditions or Safety Concerns. Roll Left to Right (QC): 4 (SBA-CGA with cues to use bedrail and push with opposite LE) Sit to Lying (QC): 4 Sit to Stand (QC): 1 Chair/Cen-uw-Kzmif Xfer(QC): 1 (using sit>stand lift) Car Transfer (QC): 88 Gait Training Does the Patient Walk?: No and Walking Goal IS indicated Walk 10 feet (QC): 88 Walk 50 ft with 2 Turns(QC): 88 Walk 150 ft (QC): 88 Walking 10ft/uneven surface-QC: 88 Wheelchair Training Does the Pt Use a Wheelchair?: Yes Distance: 60' x 2 Wheel 50 ft with 2 turns (QC): 4 Wheel 150 ft (QC): 4 Type of Wheelchair: Manual Stair Training 1 Step (curb) (QC): 88 4 Steps (QC): 9 12 Steps (QC): 9 Balance Picking up an Object (QC): 88 ADL-Treatment Eating (QC): 5 Oral Hygiene (QC): 4 (SBA seated at sink. 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 on prednisone taper dose and will receives IVIG every 2 weeks Chronic atrial fibrillation Anemia requiring transfusion on 07/25/2023 On oral anticoagulation for stroke prophylaxis Hypertension GERD Recent hyponatremia Recent hypokalemia Obesity Severe constipation no BM for 9 days upon arrival Resolved Plan: Bowel regimen PT and OT Home meds Prednisone taper dose Monitor closely 07/27/2023: Replace potassium Supportive care Fall risk 07/28/2023: Monitor hypoxia CXR and labs reviewed 07/29/2023: IVIG tomorrow Monitor closely 07/30/2023: IVIG today and Thursday Monitor closely 07/31/2023: Supportive care IVIG 08/01/2023: Supportive care Monitor closely (1) CIDP (chronic inflammatory demyelinating polyneuropathy) KONG TY DO Aug 01, 2023 06:15
[2023-08-01 07:17] VITALS: BP 132/89
[2023-08-01] MEDS: NICOTINE PATCH REMOVAL TP SCH (08:32)
[2023-08-01] MEDS: APIXABAN 5 MG TABLET PO SCH ×2 (09:31→20:40)
[2023-08-01] MEDS: DOCUSATE SODIUM 100 MG CAPSULE PO SCH ×2 (09:31→20:41)
[2023-08-01] MEDS: MICONAZOLE 2% POWDER 90 GM TOP SCH ×2 (09:31→20:40)
[2023-08-01] MEDS: NICOTINE 21 MG PATCH TD SCH (09:31)
[2023-08-01] MEDS: POTASSIUM BICARB 20 MEQ effervescent TABLET PO SCH ×3 (09:31→20:40)
[2023-08-01] MEDS: rOPINIRole 0.25 MG TABLET PO SCH ×3 (09:31→20:40)
[2023-08-01] MEDS: SERTRALINE 50 MG TABLET PO SCH (09:31)
[2023-08-01] MEDS: SENNA W/DOCUSATE TABLET PO SCH ×2 (09:31→20:41)
[2023-08-01 19:44] VITALS: BP 116/73
[2023-08-02] MEDS: SUCRALFATE 1 GM TABLET PO SCH ×4 (01:41→17:17)
[2023-08-02] MEDS: ACETAMINOPHEN 325 MG TABLET PO PRN (04:14)
[2023-08-02] MEDS: LEVOTHYROXINE 125 MCG TABLET PO SCH (06:13)
[2023-08-02] MEDS: PANTOPRAZOLE 40 MG TABLET PO SCH (06:13)
[2023-08-02] MEDS: THERAPEUTIC MULTIVITAMIN W/MINERALS TABLET PO SCH (06:14)
--- NOTE | 2023-08-02 07:17 | PM&R Progress Note ---
Subjective HPI/CC On Admission Date Seen by Provider: Aug 02, 2023 Time Seen by Provider: 12:00 Subjective/Events-last exam 08/02/2023: Moving a little better Still sit to stand I see no capability of going home independently We will continue supportive care 08/01/2023: Patient doing well Getting stronger since IVIG No falls No pain Eating and drinking well 07/31/2023: Still very weak Lungs remain stable No pain is reported IVIG infusing 07/30/2023: Still very weak IVIG today and tomorrow IVF in-between No falls but increased risk 07/29/2023: Severe weakness noted IVIG tomorrow and she hopes it will give her a little bit of energy No falls but high risk 07/28/2023: Doing well until hypotensive and hypoxic this am No falls Very weak BM+ 07/27/2023: Patient doing a lot better No pain is reported No falls Weakness is profound Requesting team patch Miconazole powder will be initiated Review of Systems General: Fatigue, Malaise Neurological: Weakness Objective Exam Vital Signs Vital Signs Date Time Temp Pulse Resp B/P (MAP) Pulse Ox O2 Delivery O2 Flow Rate FiO2 08/02/23 09:23 Nasal Cannula 1.50 08/02/23 08:08 36.2 82 20 93/54 (67) 97 Capillary Refill : General Appearance: No Apparent Distress, WD/WN, Chronically ill, Obese HEENT: PERRL/EOMI, Normal ENT Inspection, Pharynx Normal Neck: Full Range of Motion, Normal Inspection, Non Tender, Supple, Carotid Bruit Respiratory: Chest Non Tender, Lungs Clear, Normal Breath Sounds, No Accessory Muscle Use, No Respiratory Distress Cardiovascular: Regular Rate, Rhythm, No Edema, No Gallop, No JVD, No Murmur, Normal Peripheral Pulses Gastrointestinal: Normal Bowel Sounds, No Organomegaly, No Pulsatile Mass, Non Tender, Soft Back: Normal Inspection, No CVA Tenderness, No Vertebral Tenderness Extremity: Normal Capillary Refill, Normal Inspection, Normal Range of Motion, Non Tender, No Calf Tenderness, No Pedal Edema Neurologic/Psychiatric: Alert, Oriented x3, scrap metal 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 FIM Transfers Therapy Code Descriptions/Definitions Functional [place] Measure: 0=Not Assessed/NA 4=Minimal Assistance 1=Total Assistance 5=Supervision or Setup 2=Maximal Assistance 6=Modified [place] 3=Moderate Assistance 7=Complete IndependenceSCALE: Activities may be completed with or without assistive devices. 0-Egxgribenl-xutybpe completes the activity by him/herself with no assistance from a helper. 5-Set-up or Clean-up Assistance-helper sets up or cleans up; patient completes activity. [place] assists only prior to or following the activity. 4-Supervision or Touching Assistance-helper provides verbal cues and/or touching/steadying and/or contact guard assistance as patient completes activity. Assistance may be provided throughout the activity or intermittently. 3-Partial/Moderate Assistance-helper does LESS THAN HALF the effort. [place] lifts, holds or supports trunk or limbs, but provides less than half the effort. 2-Substantial/Maximal Assistance-helper does MORE THAN HALF the effort. [place] lifts or holds trunk or limbs and provides more than half the effort. 7-Fgfzzlqhg-zefirz does ALL the effort. Patient does none of the effort to complete the activity. Or, the assistance of 2 or more helpers is required for the patient to complete the activity. If activity was not attempted, code reason: 7-Patient Refused. 9-Not Applicable-not attempted and the patient did not perform the activity before the current illness, exacerbation or injury. 10-Not Attempted due to Environmental Limitations-(lack of equipment, weather restraints, etc.). 88-Not Attempted due to Medical Conditions or Safety Concerns. Roll Left to Right (QC): 4 (SBA-CGA with cues to use bedrail and push with opposite LE) Sit to Lying (QC): 4 Sit to Stand (QC): 1 Chair/Ozl-ch-[place] Xfer(QC): 1 (using sit>stand lift) Car Transfer (QC): 88 Gait Training Does the Patient Walk?: No and Walking Goal IS indicated Walk 10 feet (QC): 88 Walk 50 ft with 2 Turns(QC): 88 Walk 150 ft (QC): 88 Walking 10ft/uneven surface-QC: 88 Wheelchair Training Does the Pt Use a Wheelchair?: Yes Distance: 60' x 2 Wheel 50 ft with 2 turns (QC): 4 Wheel 150 ft (QC): 4 Type of Wheelchair: Manual Stair Training 1 Step (curb) (QC): 88 4 Steps (QC): 9 12 Steps (QC): 9 Balance Picking up an Object (QC): 88 ADL-Treatment Eating (QC): 5 Oral Hygiene (QC): 4 (SBA seated at sink. 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 on prednisone taper dose and will receives IVIG every 2 weeks Chronic atrial fibrillation Anemia requiring transfusion on 07/25/2023 On oral anticoagulation for stroke prophylaxis Hypertension GERD Recent hyponatremia Recent hypokalemia Obesity Severe constipation no BM for 9 days upon arrival Resolved Plan: Bowel regimen PT and OT Home meds Prednisone taper dose Monitor closely 07/27/2023: Replace potassium Supportive care Fall risk 07/28/2023: Monitor hypoxia CXR and labs reviewed 07/29/2023: IVIG tomorrow Monitor closely 07/30/2023: IVIG today and Thursday Monitor closely 07/31/2023: Supportive care IVIG 08/01/2023: Supportive care Monitor closely 08/02/2023: Supportive care (1) CIDP (chronic inflammatory demyelinating polyneuropathy) KONG TY DO Aug 02, 2023 07:17
[2023-08-02] MEDS: DOCUSATE SODIUM 100 MG CAPSULE PO SCH ×2 (07:45→18:59)
[2023-08-02] MEDS: SENNA W/DOCUSATE TABLET PO SCH ×2 (07:45→19:00)
[2023-08-02 08:08] VITALS: BP 93/54
[2023-08-02] MEDS: APIXABAN 5 MG TABLET PO SCH ×2 (08:23→20:07)
[2023-08-02] MEDS: SERTRALINE 50 MG TABLET PO SCH (08:23)
[2023-08-02] MEDS: rOPINIRole 0.25 MG TABLET PO SCH ×3 (08:23→20:07)
[2023-08-02] MEDS: NICOTINE PATCH REMOVAL TP SCH (08:24)
[2023-08-02] MEDS: NICOTINE 21 MG PATCH TD SCH (08:24)
[2023-08-02] MEDS: POTASSIUM BICARB 20 MEQ effervescent TABLET PO SCH ×3 (08:24→20:07)
[2023-08-02] MEDS: MICONAZOLE 2% POWDER 90 GM TOP SCH ×2 (08:24→20:09)
[2023-08-02 20:05] VITALS: BP 132/69
[2023-08-03] MEDS: SUCRALFATE 1 GM TABLET PO SCH ×4 (00:24→17:19)
[2023-08-03] MEDS: PANTOPRAZOLE 40 MG TABLET PO SCH (05:33)
[2023-08-03] MEDS: LEVOTHYROXINE 125 MCG TABLET PO SCH (05:33)
[2023-08-03] MEDS: THERAPEUTIC MULTIVITAMIN W/MINERALS TABLET PO SCH (05:33)
[2023-08-03 05:42] LABS: BASOPHILS # (AUTO) 0.1 10^3/uL (0.0-0.1); BASOPHILS % (AUTO) 2 % (0-10); EOSINOPHILS # (AUTO) 0.1 10^3/uL (0.0-0.3); EOSINOPHILS % (AUTO) 3 % (0-10); HEMATOCRIT 26 % (35-52); HEMOGLOBIN 9.4 g/dL (11.5-16.0); LYMPHOCYTES # (AUTO) 1.4 10^3/uL (1.0-4.0); LYMPHOCYTES % (AUTO) 44 % (12-44); MEAN CORPUSCULAR HEMOGLOBIN 36 pg (25-34); MEAN CORPUSCULAR HGB CONC 36 g/dL (32-36); MEAN CORPUSCULAR VOLUME 100 fL (80-99); MEAN PLATELET VOLUME 9.3 fL (9.0-12.2); MONOCYTES # (AUTO) 0.4 10^3/uL (0.0-1.0); MONOCYTES % (AUTO) 13 % (0-12); NEUTROPHILS # (AUTO) 1.3 10^3/uL (1.8-7.8); NEUTROPHILS % (AUTO) 39 % (42-75); PLATELET COUNT 140 10^3/uL (130-400); WHITE BLOOD COUNT 3.3 10^3/uL (4.3-11.0)
[2023-08-03 06:01] LABS: ALBUMIN 2.9 GM/DL (3.2-4.5); BILIRUBIN,TOTAL 0.4 MG/DL (0.1-1.0); CALCIUM 8.4 MG/DL (8.5-10.1); CREATININE SERUM 0.65 MG/DL (0.60-1.30); POTASSIUM 3.8 MMOL/L (3.6-5.0); TOTAL PROTEIN 8.2 GM/DL (6.4-8.2)
--- NOTE | 2023-08-03 07:14 | PM&R Progress Note ---
Subjective HPI/CC On Admission Date Seen by Provider: Aug 03, 2023 Time Seen by Provider: 10:00 Subjective/Events-last exam 08/03/2023: No major issues Prednisone had not been given as ordered since it was as directed and not confirmed by pharmacy Still very weak Needs NHP 08/02/2023: Moving a little better Still sit to stand I see no capability of going home independently We will continue supportive care 08/01/2023: Patient doing well Getting stronger since IVIG No falls No pain Eating and drinking well 07/31/2023: Still very weak Lungs remain stable No pain is reported IVIG infusing 07/30/2023: Still very weak IVIG today and tomorrow IVF in-between No falls but increased risk 07/29/2023: Severe weakness noted IVIG tomorrow and she hopes it will give her a little bit of energy No falls but high risk 07/28/2023: Doing well until hypotensive and hypoxic this am No falls Very weak BM+ 07/27/2023: Patient doing a lot better No pain is reported No falls Weakness is profound Requesting team patch Miconazole powder will be initiated Review of Systems General: Fatigue, Malaise Neurological: Weakness Objective Exam Vital Signs Vital Signs Date Time Temp Pulse Resp B/P (MAP) Pulse Ox O2 Delivery O2 Flow Rate FiO2 08/03/23 09:27 Nasal Cannula 1.50 08/03/23 08:00 35.6 79 18 108/74 (85) 97 Capillary Refill : General Appearance: No Apparent Distress, WD/WN, Chronically ill, Obese HEENT: PERRL/EOMI, Normal ENT Inspection, Pharynx Normal Neck: Full Range of Motion, Normal Inspection, Non Tender, Supple, Carotid Bruit Respiratory: Chest Non Tender, Lungs Clear, Normal Breath Sounds, No Accessory Muscle Use, No Respiratory Distress Cardiovascular: Regular Rate, Rhythm, No Edema, No Gallop, No JVD, No Murmur, Normal Peripheral Pulses Gastrointestinal: Normal Bowel Sounds, No Organomegaly, No Pulsatile Mass, Non Tender, Soft Back: Normal Inspection, No CVA Tenderness, No Vertebral Tenderness Extremity: Normal Capillary Refill, Normal Inspection, Normal Range of Motion, Non Tender, No Calf Tenderness, No Pedal Edema Neurologic/Psychiatric: Alert, Oriented x3, nut former II-XII Norm as Tested, Abnormal Gait, Depressed Affect, Motor Weakness Skin: Normal Color, Warm/Dry Lymphatic: No Adenopathy Results/Procedures Lab Laboratory Tests 08/03/23 05:30 Patient resulted labs reviewed. FIM Transfers Therapy Code Descriptions/Definitions Functional [place] Measure: 0=Not Assessed/NA 4=Minimal Assistance 1=Total Assistance 5=Supervision or Setup 2=Maximal Assistance 6=Modified [place] 3=Moderate Assistance 7=Complete IndependenceSCALE: Activities may be completed with or without assistive devices. 4-Ddowhxgvnz-omhsuet completes the activity by him/herself with no assistance from a helper. 5-Set-up or Clean-up Assistance-helper sets up or cleans up; patient completes activity. [place] assists only prior to or following the activity. 4-Supervision or Touching Assistance-helper provides verbal cues and/or touching/steadying and/or contact guard assistance as patient completes activity. Assistance may be provided throughout the activity or intermittently. 3-Partial/Moderate Assistance-helper does LESS THAN HALF the effort. [place] li fts, holds or supports trunk or limbs, but provides less than half the effort. 2-Substantial/Maximal Assistance-helper does MORE THAN HALF the effort. [place] lifts or holds trunk or limbs and provides more than half the effort. 5-Qiedqnxma-okdoam does ALL the effort. Patient does none of the effort to complete the activity. Or, the assistance of 2 or more helpers is required for the patient to complete the activity. If activity was not attempted, code reason: 7-Patient Refused. 9-Not Applicable-not attempted and the patient did not perform the activity before the current illness, exacerbation or injury. 10-Not Attempted due to Environmental Limitations-(lack of equipment, weather restraints, etc.). 88-Not Attempted due to Medical Conditions or Safety Concerns. Roll Left to Right (QC): 4 (SBA-CGA with cues to use bedrail and push with opposite LE) Sit to Lying (QC): 4 Sit to Stand (QC): 1 Chair/Rgv-tg-Poujp Xfer(QC): 1 (using sit>stand lift) Car Transfer (QC): 88 Gait Training Does the Patient Walk?: No and Walking Goal IS indicated Walk 10 feet (QC): 88 Walk 50 ft with 2 Turns(QC): 88 Walk 150 ft (QC): 88 Walking 10ft/uneven surface-QC: 88 Wheelchair Training Does the Pt Use a Wheelchair?: Yes Distance: 60' x 2 Wheel 50 ft with 2 turns (QC): 4 Wheel 150 ft (QC): 4 Type of Wheelchair: Manual Stair Training 1 Step (curb) (QC): 88 4 Steps (QC): 9 12 Steps (QC): 9 Balance Picking up an Object (QC): 88 ADL-Treatment Eating (QC): 5 Oral Hygiene (QC): 4 (SBA seated at sink. 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 on prednisone taper dose and will receives IVIG every 2 weeks Chronic atrial fibrillation Anemia requiring transfusion on 07/25/2023 On oral anticoagulation for stroke prophylaxis Hypertension GERD Recent hyponatremia Recent hypokalemia Obesity Severe constipation no BM for 9 days upon arrival Resolved Mild hyponatremia Plan: Bowel regimen PT and OT Home meds Prednisone taper dose Monitor closely 07/27/2023: Replace potassium Supportive care Fall risk 07/28/2023: Monitor hypoxia CXR and labs reviewed 07/29/2023: IVIG tomorrow Monitor closely 07/30/2023: IVIG today and Thursday Monitor closely 07/31/2023: Supportive care IVIG 08/01/2023: Supportive care Monitor closely 08/02/2023: Supportive care 08/03/2023: Restart Prednisone (1) CIDP (chronic inflammatory demyelinating polyneuropathy) KONG TY DO Aug 03, 2023 07:14
[2023-08-03 08:00] VITALS: BP 108/74
[2023-08-03] MEDS: MICONAZOLE 2% POWDER 90 GM TOP SCH ×2 (08:09→20:16)
[2023-08-03] MEDS: APIXABAN 5 MG TABLET PO SCH ×2 (08:09→20:14)
[2023-08-03] MEDS: POTASSIUM BICARB 20 MEQ effervescent TABLET PO SCH ×3 (08:09→20:15)
[2023-08-03] MEDS: SERTRALINE 50 MG TABLET PO SCH (08:09)
[2023-08-03] MEDS: NICOTINE 21 MG PATCH TD SCH (08:09)
[2023-08-03] MEDS: rOPINIRole 0.25 MG TABLET PO SCH ×3 (08:12→20:14)
[2023-08-03] MEDS: SENNA W/DOCUSATE TABLET PO SCH ×2 (08:13→19:27)
[2023-08-03] MEDS: DOCUSATE SODIUM 100 MG CAPSULE PO SCH ×2 (08:13→19:27)
[2023-08-03] MEDS: NICOTINE PATCH REMOVAL TP SCH (08:15)
--- NOTE | 2023-08-03 11:47 | Occupational Ther Daily Note ---
OT Current Status-Daily Note Subjective Pt alert, lying in bed. Pt agrees to therapy. No c/o pain. Co-treat with PT ([id number]), to decrease fall risk, improve standing tolerance and overall strength to complete functional tasks to decrease burden of care. PT focusing on standing and B LE strengthening while OT focusing on ADLs, assisting with s tanding and strengthening B UE's. Mental Status/Objective Patient Orientation: Person, Place, Time, Situation Attachments: IV, Oxygen (@L) ADL-Treatment Pt states that she has voided in depends though had not called for nrsg to assist with clean up. Min A for rolling side to side and mod A to stay on side while cleaning buttocks and brief are placed. Pt is able to cleanse susan area after handed cloth. Pt declines any clothing at this time. Pt states that it has taken 2 persons to stand her to clean and change brief at home. Pt declines donning regular clothing. Dependent for donning/doffing briefs while in supine. Mod A for supine to EOB with HOB raised and verbal cues to position B UE to push self up. Sit to stand lift to complete all transfers. Pt independent for oral care and grooming sitting at sink. Therapy Code Descriptions/Definitions Functional [place] Measure: 0=Not Assessed/NA 4=Minimal Assistance 1=Total Assistance 5=Supervision or Setup 2=Maximal Assistance 6=Modified [place] 3=Moderate Assistance 7=Complete IndependenceSCALE: Activities may be completed with or without assistive devices. 8-Vsnwhqauns-rnokigf completes the activity by him/herself with no assistance from a helper. 5-Set-up or Clean-up Assistance-helper sets up or cleans up; patient completes activity. [place] assists only prior to or following the activity. 4-Supervision or Touching Assistance-helper provides verbal cues and/or touching/steadying and/or contact guard assistance as patient completes activity. Assistance may be provided throughout the activity or intermittently. 3-Partial/Moderate Assistance-helper does LESS THAN HALF the effort. [place] lifts, holds or supports trunk or limbs, but provides less than half the effort. 2-Substantial/Maximal Assistance-helper does MORE THAN HALF the effort. [place] lifts or holds trunk or limbs and provides more than half the effort. 1-Usdlyctaa-nwmvke does ALL the effort. Patient does none of the effort to compl ete the activity. Or, the assistance of 2 or more helpers is required for the patient to complete the activity. If activity was not attempted, code reason: 7-Patient Refused. 9-Not Applicable-not attempted and the patient did not perform the activity before the current illness, exacerbation or injury. 10-Not Attempted due to Environmental Limitations-(lack of equipment, weather restraints, etc.). 88-Not Attempted due to Medical Conditions or Safety Concerns. Oral Hygiene (QC): 6 Toileting Hygiene (QC): 1 Toilet Transfer (QC): 1 Other Treatment Pt complete seating leg press 3 sets 10x's with varying resistances increasing with each set. Pt then stood at //bars 3x's with assist x2, REYEZ assisted at buttocks with max A, see PT note for assist level.. 1st stand 45 sec, 2nd stand 1 min 10 sec, 3rd stand 1 min. See PT notes for amount of progress. After session, pt sitting in recliner with call light/phone in reach. OT Short Term Goals Short Term Goals Time Frame: Aug 12, 2023 Shower/bathe self: 3 Upper body dressin Lower body dressin OT Half-Way Goals [facility] Goals Time Frame: Aug 21, 2023 Acute change in mental status: 0 Inattention: 0 Disorganized thinkin Altered level of consciousness: 0 Eating (QC): 6 Oral Hygiene (QC): 6 Toileting Hygiene (QC): 6 Shower/Bathe Self (QC): 5 Upper Body Dressing (QC): 5 Lower Body Dressing (QC): 5 On/Off Footwear (QC): 3 Additional Goals: 1-Demonstrate ADL Tasks, 2-Verbalize Understanding, 3- ImproveStrength/Pepe 1=Demonstrate adherence to instructed precautions during ADL tasks. 2=Patient will verbalize/demonstrate understanding of assistive devices/modifications for ADL. 3=Patient will improve strength/tolerance for activity to enable patient to perform ADL's. OT Education/Plan Problem List/Assessment Assessment: Decreased Activ Tolerance, Decreased UE Strength, Dependent Transfers, Impaired Bed Mobility, Impaired Funct Balance, Impaired Self-Care Skills Discharge Recommendations Plan/Recommendations: Continue POC Treatment Plan/Plan of Care Patient would benefit from OT for education, treatment and training to promote independence in ADL's, mobility, safety and/or upper extremity function for ADL's. Plan of Care: ADL Retraining, Functional Mobility, Group Exercise/Act as Ind, UE Funct Exercise/Act Treatment Duration: Aug 21, 2023 Frequency: At least 5 of 7 days/Wk (IRF) Estimated Hrs Per Day: 1 hour per day Agreement: Yes Rehab Potential: Fair Time Start Time: 10:00 Stop Time: 11:00 DATE: Aug 03, 2023 Total Time Billed (hr/min): 60 Billed Treatment Time 1 visit-ADL 2 (30 min) FA 2 (30 min) co-treat with PT ([id number]) individual ([id number]) АНДРЕЙ WALTERS Aug 03, 2023 11:47
[2023-08-03] MEDS: predniSONE 20 MG TABLET PO SCH (12:56)
--- NOTE | 2023-08-03 14:30 | Therapy Group Daily Note ---
Therapy Daily Group Note Patient Education Topic Exercises, Other List Below (ARU description) Exercises UE Exercise Session Ratio (pt:therapist): 3:1 Goal of Session: Education on ARU Expectations, UE/LE Strengthing Goal Met for this Session: Yes Pt Benefit of Group: Contributions to Others, Increased Functional Safety, Increased Functional Strength, Improved Cognition, Recognition of Peers, Socialization Other/Notes Pt transported via w/c to therapy gym for OT group. Group consisted of introductions (name, favorite fall activity), socialization, B UE seated exercises, education on benefits of exercise and ARU description. Pt introduced self appropriately and activity listened to peers. Pt asked questions of other group members and responded to questions appropriately. Pt able to complete B UE seated exercises and tolerated well. Pt propelled w/c to area of each exercise with SBA. Pt vocalized understanding of educational topic and gave personal story about each. After session, pt lying in bed with call light/phone in reach. All needs met in room. Start Time: 13:00 Stop Time: 14:00 Total Billed Treatment Time: 60 Total Billed Treatment 1-GRP АНДРЕЙ WALTERS Aug 03, 2023 14:30
--- NOTE | 2023-08-03 15:48 | Physical Therapy Daily Note ---
PT Daily Note-Current Subjective Pt working w/OT upon arrival. Pt agrees to PT/OT co-treat. Co-treat with OT ([id number]), to decrease fall risk, improve standing tolerance and overall strength to complete functional tasks to decrease burden of care. PT focusing on standing and B LE strengthening while OT focusing on ADLs, assisting with standing and strengthening B UE's. Pain Location: No Pain Reported Section J - Health Conditions 1. Rarely or not at all 2. Occasionally 3. Frequently 4. Almost constantly 8. Unable to answer Pain Effect on Sleep: 1 Pain Interference with Therapy: 1 Pain Interference w/Day-to-Day: 1 Mental Status Patient Orientation: Person, Place, Time, Situation Attachments: Oxygen Transfers SCALE: Activities may be completed with or without assistive devices. 8-Ndzdzyjtlp-gpadlss completes the activity by him/herself with no assistance from a helper. 5-Set-up or Clean-up Assistance-helper sets up or cleans up; patient completes activity. [place] assists only prior to or following the activity. 4-Supervision or Touching Assistance-helper provides verbal cues and/or touching/steadying and/or contact guard assistance as patient completes activity. Assistance may be provided throughout the activity or intermittently. 3-Partial/Moderate Assistance-helper does LESS THAN HALF the effort. [place] lifts, holds or supports trunk or limbs, but provides less than half the effort. 2-Substantial/Maximal Assistance-helper does MORE THAN HALF the effort. [place] lifts or holds trunk or limbs and provides more than half the effort. 3-Lifludicq-wtbjrx does ALL the effort. Patient does none of the effort to complete the activity. Or, the assistance of 2 or more helpers is required for the patient to complete the activity. If activity was not attempted, code reason: 7-Patient Refused. 9-Not Applicable-not attempted and the patient did not perform the activity before the current illness, exacerbation or injury. 10-Not Attempted due to Environmental Limitations-(lack of equipment, weather restraints, etc.). 88-Not Attempted due to Medical Conditions or Safety Concerns. Sit to Stand (QC): 1 Weight Bearing Weight Bearing/Tolerated Weight Bearing/Tolerated Exercises Seated Therapy Exercises: Sit to stand Seated Reps: 3 Treatments Pt complete seating leg press 3 sets 10x's with varying resistances increasing with each set. Pt then stood at //bars 3x's with assist x2, REYEZ assisted at buttocks with max A, HAT MARKER at Mod-Max A depending on fatigue level. 1st stand 45 sec, 2nd stand 1 min 10 sec, 3rd stand 1 min. After session, pt sitting in recliner with call light/phone in reach. Assessment Current Status: Good Progress Pt is improving w/length of stands and how much pt is able to assist w/stands. Pt does fatigue easily though and needs frequent RB. PT Mcfp Goals Dedicated Owner Operator Goals PT Mcfp Goals Time Frame: Aug 17, 2023 Roll Left & Right (QC): 6 (in bed or recliner) Sit to Lying (QC): 6 (in bed or recliner.) Lying-Sitting on Side/Bed(QC): 4 Sit to Stand (QC): 4 Chair/Qtj-hk-Pfsyj Xfer(QC): 4 Toilet Transfer (QC): 4 Car Transfer (QC): 4 Does the Patient Walk: No and Walking Goal IS indicated Walk 10 feet (QC): 4 (with FWW or 4WW) Walk 50ft with 2 Turns (QC): 4 Walk 150 ft (QC): 9 Walking 10ft on Uneven Surface: 4 1 Step (curb) (QC): 3 4 Steps (QC): 9 12 Steps (QC): 9 Picking up an Object (QC): 4 Does the Pt use WC or Scooter?: Yes Wheel 50 feet with 2 turns (QC: 6 Type: Manual Wheel 150 feet: 6 Type: Motorized PT Plan Problem List Problem List: Activity Tolerance, Functional Strength Treatment/Plan Treatment Plan: Continue Plan of Care Treatment Plan: Bed Mobility, Education, Functional Activity Pepe, Functional Strength, Group Therapy, Gait, Safety, Therapeutic Exercise, Transfers, Other (W/C mobility) Treatment Duration: Aug 17, 2023 Frequency: At least 5 of 7 days/Wk (IRF) Estimated Hrs Per Day: 1.5 hours per day Safety Risks/Education Patient Education: Transfer Techniques, Correct Positioning Teaching Recipient: Patient Teaching Methods: Discussion Response to Teaching: Verbalize Understanding Time Time In: 1030 Time Out: 1100 DATE: Aug 03, 2023 Total Billed Treatment Time: 30 Total Billed Treatment Co-treat w/OT for 30m ([id number]) 1, FA x2 (30m) NEO HERNADEZ HAT MARKER Aug 03, 2023 15:48
--- NOTE | 2023-08-03 15:59 | Physical Therapy Daily Note ---
PT Daily Note-Current Subjective Pt sitting w/c in Therapy Gym after finishing Group Therapy upon arrival. Pt agrees to PT but reports very fatigued and feeling like BP is running low. Pain Location: No Pain Reported Section J - Health Conditions 1. Rarely or not at all 2. Occasionally 3. Frequently 4. Almost constantly 8. Unable to answer Pain Effect on Sleep: 1 Pain Interference with Therapy: 1 Pain Interference w/Day-to-Day: 1 Mental Status Patient Orientation: Person, Place, Situation Attachments: Oxygen, IV Transfers SCALE: Activities may be completed with or without assistive devices. 5-Mytvgfrmep-bddenal completes the activity by him/herself with no assistance from a helper. 5-Set-up or Clean-up Assistance-helper sets up or cleans up; patient completes activity. [place] assists only prior to or following the activity. 4-Supervision or Touching Assistance-helper provides verbal cues and/or touching/steadying and/or contact guard assistance as patient completes activity. Assistance may be provided throughout the activity or intermittently. 3-Partial/Moderate Assistance-helper does LESS THAN HALF the effort. [place] lifts, holds or supports trunk or limbs, but provides less than half the effort. 2-Substantial/Maximal Assistance-helper does MORE THAN HALF the effort. [place] lifts or holds trunk or limbs and provides more than half the effort. 5-Mjjeuaupm-pehnxw does ALL the effort. Patient does none of the effort to complete the activity. Or, the assistance of 2 or more helpers is required for the patient to complete the activity. If activity was not attempted, code reason: 7-Patient Refused. 9-Not Applicable-not attempted and the patient did not perform the activity before the current illness, exacerbation or injury. 10-Not Attempted due to Environmental Limitations-(lack of equipment, weather restraints, etc.). 88-Not Attempted due to Medical Conditions or Safety Concerns. Weight Bearing Weight Bearing/Tolerated Weight Bearing/Tolerated Wheelchair Training Does the Pt Use a Wheelchair?: Yes Type of Wheelchair: Manual Treatments Pt is assisted by STARCH TREATING ASSISTANT w/propelling w/c back to pt's room. BP taken to confirm it is fine. It was WNL. Sit to Stand lift is used to lift pt back to EOB. Pt lays as she reports not being able to sit up any longer. Pt is repositioned in bed to comfort as needed with all needs met, call light in hand. Assessment Current Status: Fair Progress Pt was very fatigued in returning from Group Therapy and reported that she could not sit up any longer to complete Ex. PT Residential Goals Wafer Batter Mixer Goals PT Wafer Batter Mixer Goals Time Frame: Aug 17, 2023 Roll Left & Right (QC): 6 (in bed or recliner) Sit to Lying (QC): 6 (in bed or recliner.) Lying-Sitting on Side/Bed(QC): 4 Sit to Stand (QC): 4 Chair/Url-ja-Pmusd Xfer(QC): 4 Toilet Transfer (QC): 4 Car Transfer (QC): 4 Does the Patient Walk: No and Walking Goal IS indicated Walk 10 feet (QC): 4 (with FWW or 4WW) Walk 50ft with 2 Turns (QC): 4 Walk 150 ft (QC): 9 Walking 10ft on Uneven Surface: 4 1 Step (curb) (QC): 3 4 Steps (QC): 9 12 Steps (QC): 9 Picking up an Object (QC): 4 Does the Pt use WC or Scooter?: Yes Wheel 50 feet with 2 turns (QC: 6 Type: Manual Wheel 150 feet: 6 Type: Motorized PT Plan Problem List Problem List: Activity Tolerance, Functional Strength, Transfer Treatment/Plan Treatment Plan: Continue Plan of Care Treatment Plan: Bed Mobility, Education, Functional Activity Pepe, Functional Strength, Group Therapy, Gait, Safety, Therapeutic Exercise, Transfers, Other (W/C mobility) Treatment Duration: Aug 17, 2023 Frequency: At least 5 of 7 days/Wk (IRF) Estimated Hrs Per Day: 1.5 hours per day Safety Risks/Education Patient Education: Transfer Techniques, Correct Positioning, Safety Issues Teaching Recipient: Patient Teaching Methods: Discussion Response to Teaching: Verbalize Understanding Time Time In: 1400 Time Out: 1430 DATE: Aug 03, 2023 Total Billed Treatment Time: 30 Total Billed Treatment 1, FA x2 (30m) NEO HERNADEZ STARCH TREATING ASSISTANT Aug 03, 2023 15:59
[2023-08-03] MEDS: CATHETER FLUSH 10 ML SYR IVP SCH (20:17)
[2023-08-03 20:42] VITALS: BP 131/74
[2023-08-04] MEDS: SUCRALFATE 1 GM TABLET PO SCH ×4 (02:29→17:32)
--- NOTE | 2023-08-04 05:07 | PM&R Progress Note ---
Subjective HPI/CC On Admission Date Seen by Provider: Aug 04, 2023 Time Seen by Provider: 10:30 Subjective/Events-last exam 08/04/2023: Supportive care continues Still very weak Looking for skilled care 08/03/2023: No major issues Prednisone had not been given as ordered since it was as directed and not confirmed by pharmacy Still very weak Needs NHP 08/02/2023: Moving a little better Still sit to stand I see no capability of going home independently We will continue supportive care 08/01/2023: Patient doing well Getting stronger since IVIG No falls No pain Eating and drinking well 07/31/2023: Still very weak Lungs remain stable No pain is reported IVIG infusing 07/30/2023: Still very weak IVIG today and tomorrow IVF in-between No falls but increased risk 07/29/2023: Severe weakness noted IVIG tomorrow and she hopes it will give her a little bit of energy No falls but high risk 07/28/2023: Doing well until hypotensive and hypoxic this am No falls Very weak BM+ 07/27/2023: Patient doing a lot better No pain is reported No falls Weakness is profound Requesting team patch Miconazole powder will be initiated Review of Systems General: Fatigue, Malaise Objective Exam Vital Signs Vital Signs Date Time Temp Pulse Resp B/P (MAP) Pulse Ox O2 Delivery O2 Flow Rate FiO2 08/04/23 08:54 Nasal Cannula 2.00 08/04/23 07:39 36.3 85 18 110/74 (86) 100 Capillary Refill : General Appearance: No Apparent Distress, WD/WN, Chronically ill, Obese HEENT: PERRL/EOMI, Normal ENT Inspection, Pharynx Normal Neck: Full Range of Motion, Normal Inspection, Non Tender, Supple, Carotid Bruit Respiratory: Chest Non Tender, Lungs Clear, Normal Breath Sounds, No Accessory Muscle Use, No Respiratory Distress Cardiovascular: Regular Rate, Rhythm, No Edema, No Gallop, No JVD, No Murmur, Normal Peripheral Pulses Gastrointestinal: Normal Bowel Sounds, No Organomegaly, No Pulsatile Mass, Non Tender, Soft Back: Normal Inspection, No CVA Tenderness, No Vertebral Tenderness Extremity: Normal Capillary Refill, Normal Inspection, Normal Range of Motion, Non Tender, No Calf Tenderness, No Pedal Edema Neurologic/Psychiatric: Alert, Oriented x3, legal coordinator II-XII Norm as Tested, Abnormal Gait, Depressed Affect, Motor Weakness Skin: Normal Color, Warm/Dry Lymphatic: No Adenopathy Results/Procedures Lab Patient resulted labs reviewed. FIM Transfers Therapy Code Descriptions/Definitions Functional [place] Measure: 0=Not Assessed/NA 4=Minimal Assistance 1=Total Assistance 5=Supervision or Setup 2=Maximal Assistance 6=Modified [place] 3=Moderate Assistance 7=Complete IndependenceSCALE: Activities may be completed with or without assistive devices. 0-Tnwpxsdehj-twruzev completes the activity by him/herself with no assistance from a helper. 5-Set-up or Clean-up Assistance-helper sets up or cleans up; patient completes activity. [place] assists only prior to or following the activity. 4-Supervision or Touching Assistance-helper provides verbal cues and/or touching/steadying and/or contact guard assistance as patient completes activity. Assistance may be provided throughout the activity or intermittently. 3-Partial/Moderate Assistance-helper does LESS THAN HALF the effort. [place] lifts, holds or supports trunk or limbs, but provides less than half the effort. 2-Substantial/Maximal Assistance-helper does MORE THAN HALF the effort. [place] lifts or holds trunk or limbs and provides more than half the effort. 6-Zhyhysmyo-xiwtki does ALL the effort. Patient does none of the effort to complete the activity. Or, the assistance of 2 or more helpers is required for the patient to complete the activity. If activity was not attempted, code reason: 7-Patient Refused. 9-Not Applicable-not attempted and the patient did not perform the activity before the current illness, exacerbation or injury. 10-Not Attempted due to Environmental Limitations-(lack of equipment, weather restraints, etc.). 88-Not Attempted due to Medical Conditions or Safety Concerns. Roll Left to Right (QC): 4 (SBA-CGA with cues to use bedrail and push with opposite LE) Sit to Lying (QC): 4 Sit to Stand (QC): 1 Chair/Xvn-bq-Assca Xfer(QC): 1 (using sit>stand lift) Car Transfer (QC): 88 Gait Training Does the Patient Walk?: No and Walking Goal IS indicated Walk 10 feet (QC): 88 Walk 50 ft with 2 Turns(QC): 88 Walk 150 ft (QC): 88 Walking 10ft/uneven surface-QC: 88 Wheelchair Training Does the Pt Use a Wheelchair?: Yes Distance: 60' x 2 Wheel 50 ft with 2 turns (QC): 4 Wheel 150 ft (QC): 4 Type of Wheelchair: Manual Stair Training 1 Step (curb) (QC): 88 4 Steps (QC): 9 12 Steps (QC): 9 Balance Picking up an Object (QC): 88 ADL-Treatment Eating (QC): 5 Oral Hygiene (QC): 6 Shower/Bathe Self (QC): 1 (use of lift to wash buttocks) Upper Body Dressing (QC): 3 Lower Body Dressing (QC): 1 On/Off Footwear (QC): 1 Toileting Hygiene (QC): 1 Toilet Transfer (QC): 1 Assessment/Plan Assessment and Plan Assess & Plan/Chief Complaint Assessment: 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 on prednisone taper dose and will receives IVIG every 2 weeks Chronic atrial fibrillation Anemia requiring transfusion on 07/25/2023 On oral anticoagulation for stroke prophylaxis Hypertension GERD Recent hyponatremia Recent hypokalemia Obesity Severe constipation no BM for 9 days upon arrival Resolved Mild hyponatremia Plan: Bowel regimen PT and OT Home meds Prednisone taper dose Monitor closely 07/27/2023: Replace potassium Supportive care Fall risk 07/28/2023: Monitor hypoxia CXR and labs reviewed 07/29/2023: IVIG tomorrow Monitor closely 07/30/2023: IVIG today and Thursday Monitor closely 07/31/2023: Supportive care IVIG 08/01/2023: Supportive care Monitor closely 08/02/2023: Supportive care 08/03/2023: Restart Prednisone 08/04/2023: Await skilled care (1) CIDP (chronic inflammatory demyelinating polyneuropathy) KONG TY DO Aug 04, 2023 05:07
[2023-08-04] MEDS: PANTOPRAZOLE 40 MG TABLET PO SCH (05:51)
[2023-08-04] MEDS: LEVOTHYROXINE 125 MCG TABLET PO SCH (05:51)
[2023-08-04] MEDS: THERAPEUTIC MULTIVITAMIN W/MINERALS TABLET PO SCH (05:52)
[2023-08-04] MEDS: CATHETER FLUSH 10 ML SYR IVP SCH ×3 (05:53→20:42)
[2023-08-04 07:39] VITALS: BP 110/74
[2023-08-04] MEDS: rOPINIRole 0.25 MG TABLET PO SCH ×3 (07:41→20:38)
[2023-08-04] MEDS: POTASSIUM BICARB 20 MEQ effervescent TABLET PO SCH ×3 (07:41→20:38)
[2023-08-04] MEDS: NICOTINE 21 MG PATCH TD SCH (07:41)
[2023-08-04] MEDS: SERTRALINE 50 MG TABLET PO SCH (07:41)
[2023-08-04] MEDS: predniSONE 20 MG TABLET PO SCH (07:41)
[2023-08-04] MEDS: APIXABAN 5 MG TABLET PO SCH ×2 (07:41→20:38)
[2023-08-04] MEDS: DOCUSATE SODIUM 100 MG CAPSULE PO SCH ×2 (07:43→20:40)
[2023-08-04] MEDS: NICOTINE PATCH REMOVAL TP SCH (07:43)
[2023-08-04] MEDS: SENNA W/DOCUSATE TABLET PO SCH ×2 (07:44→20:41)
[2023-08-04] MEDS: MICONAZOLE 2% POWDER 90 GM TOP SCH ×2 (07:44→20:42)
--- NOTE | 2023-08-04 07:53 | Occupational Ther Daily Note ---
OT Current Status-Daily Note Subjective Pt in bed, agreeable to OT Tx. States she slept good last night. Mental Status/Objective Patient Orientation: Normal For Age Attachments: Oxygen (2L) ADL-Treatment Therapy Code Descriptions/Definitions Functional [place] Measure: 0=Not Assessed/NA 4=Minimal Assistance 1=Total Assistance 5=Supervision or Setup 2=Maximal Assistance 6=Modified [place] 3=Moderate Assistance 7=Complete IndependenceSCALE: Activities may be completed with or without assistive devices. 1-Tcdedycxfm-cbvrhcp completes the activity by him/herself with no assistance from a helper. 5-Set-up or Clean-up Assistance-helper sets up or cleans up; patient completes activity. [place] assists only prior to or following the activity. 4-Supervision or Touching Assistance-helper provides verbal cues and/or touching/steadying and/or contact guard assistance as patient completes activity. Assistance may be provided throughout the activity or intermittently. 3-Partial/Moderate Assistance-helper does LESS THAN HALF the effort. [place] lifts, holds or supports trunk or limbs, but provides less than half the effort. 2-Substantial/Maximal Assistance-helper does MORE THAN HALF the effort. [place] lifts or holds trunk or limbs and provides more than half the effort. 3-Imtbibofr-fywipo does ALL the effort. Patient does none of the effort to complete the activity. Or, the assistance of 2 or more helpers is required for the patient to complete the activity. If activity was not attempted, code reason: 7-Patient Refused. 9-Not Applicable-not attempted and the patient did not perform the activity before the current illness, exacerbation or injury. 10-Not Attempted due to Environmental Limitations-(lack of equipment, weather restraints, etc.). 88-Not Attempted due to Medical Conditions or Safety Concerns. Eating (QC): 5 Shower/Bathe Self (QC): 1 (Pt declined completing at bed level. Lift would be required to wash buttocks. ) On/Off Footwear: 1 Other Treatment Pt finishing breakfast upon OT arrival. After meal, pt completed sponge bath at bed level. Pt declined completing posterior hygiene at bed level, preferring to complete in sit to stand lift later this morning. OT dependently donned tedhose and gripper socks. Post tx, pt in bed, call light in reach and all needs met. Education OT Patient Education: Correct positioning, Energy conservation, Modified ADL techniques, Progress toward Goal/Update tx plan, Purpose of tx/functional activities, Rehab process Teaching Recipient: Patient Teaching Methods: Discussion OT Short Term Goals Short Term Goals Time Frame: Aug 12, 2023 Shower/bathe self: 3 Upper body dressin Lower body dressin OT Meals On Wheels Driver Goals Meals On Wheels Driver Goals Time Frame: Aug 21, 2023 Acute change in mental status: 0 Inattention: 0 Disorganized thinkin Altered level of consciousness: 0 Eating (QC): 6 Oral Hygiene (QC): 6 Toileting Hygiene (QC): 6 Shower/Bathe Self (QC): 5 Upper Body Dressing (QC): 5 Lower Body Dressing (QC): 5 On/Off Footwear (QC): 3 Additional Goals: 1-Demonstrate ADL Tasks, 2-Verbalize Understanding, 3- ImproveStrength/Pepe 1=Demonstrate adherence to instructed precautions during ADL tasks. 2=Patient will verbalize/demonstrate understanding of assistive devices/modifications for ADL. 3=Patient will improve strength/tolerance for activity to enable patient to perform ADL's. OT Education/Plan Problem List/Assessment Assessment: Decreased Activ Tolerance, Decreased UE Strength, Impaired Funct Balance, Impaired I ADL's, Impaired Self-Care Skills Discharge Recommendations Plan/Recommendations: Continue POC Treatment Plan/Plan of Care Patient would benefit from OT for education, treatment and training to promote independence in ADL's, mobility, safety and/or upper extremity function for ADL's. Plan of Care: ADL Retraining, Functional Mobility, Group Exercise/Act as Ind, UE Funct Exercise/Act Treatment Duration: Aug 21, 2023 Frequency: At least 5 of 7 days/Wk (IRF) Estimated Hrs Per Day: 1 hour per day Agreement: Yes Rehab Potential: Fair Time Start Time: 07:30 Stop Time: 08:00 DATE: Aug 04, 2023 Total Time Billed (hr/min): 30 Billed Treatment Time 1, ADL 2 ROHITH BLANTON OT Aug 04, 2023 07:53
--- NOTE | 2023-08-04 11:00 | Occupational Ther Daily Note ---
OT Current Status-Daily Note Subjective Pt agreeable to therapy tx, she required some motivation at times to attempt tasks she doesn't feel like she can do Mental Status/Objective Attachments: Oxygen (2L) ADL-Treatment Therapy Code Descriptions/Definitions Functional [place] Measure: 0=Not Assessed/NA 4=Minimal Assistance 1=Total Assistance 5=Supervision or Setup 2=Maximal Assistance 6=Modified [place] 3=Moderate Assistance 7=Complete IndependenceSCALE: Activities may be completed with or without assistive devices. 5-Qbrlwlhjyd-ulhnrfg completes the activity by him/herself with no assistance from a helper. 5-Set-up or Clean-up Assistance-helper sets up or cleans up; patient completes activity. [place] assists only prior to or following the activity. 4-Supervision or Touching Assistance-helper provides verbal cues and/or touching/steadying and/or contact guard assistance as patient completes activity. Assistance may be provided throughout the activity or intermittently. 3-Partial/Moderate Assistance-helper does LESS THAN HALF the effort. [place] lifts, holds or supports trunk or limbs, but provides less than half the effort. 2-Substantial/Maximal Assistance-helper does MORE THAN HALF the effort. [place] lifts or holds trunk or limbs and provides more than half the effort. 9-Owmwtcmqo-tswqrl does ALL the effort. Patient does none of the effort to complete the activity. Or, the assistance of 2 or more helpers is required for the patient to complete the activity. If activity was not attempted, code reason: 7-Patient Refused. 9-Not Applicable-not attempted and the patient did not perform the activity before the current illness, exacerbation or injury. 10-Not Attempted due to Environmental Limitations-(lack of equipment, weather restraints, etc.). 88-Not Attempted due to Medical Conditions or Safety Concerns. Other Treatment OT/PT cotreat due to skill of 2 clinicians required which a director of pediatric rehabilitation could not perform in order to coordinate UE/LEs, decrease fall risk, and due to pt's limitations in strength, activity tolerance, mobility and transfers. OT focused on UE placement, ADLs, and cues for sequencing and safety, PT focused on LE placement, gross overall movement, transfers and mobility. Pt transferred supine to sit EOB, Sit to stand lift utilized to transfer to w/c. Pt propelled w/c to therapy gym, requiring assistance through doorways. Pt stood in parallel bars x3 trials (sit to stand transfers min A x2, then mod A x2 for next 2 stands). Pt able to stand 30 seconds, 1 min, then 1 min 30 with encouragement to attempt to stand longer. Pt propelled w/c around [facility] common area/2nd floor, then assisted back to her room. Sit to stand lift transfer from w/c to recliner. Post tx, pt in recliner, call light in reach and all needs met. OT Short Term Goals Short Term Goals Time Frame: Aug 12, 2023 Shower/bathe self: 3 Upper body dressin Lower body dressin OT Custodial Goals Custodial Goals Time Frame: Aug 21, 2023 Acute change in mental status: 0 Inattention: 0 Disorganized thinkin Altered level of consciousness: 0 Eating (QC): 6 Oral Hygiene (QC): 6 Toileting Hygiene (QC): 6 Shower/Bathe Self (QC): 5 Upper Body Dressing (QC): 5 Lower Body Dressing (QC): 5 On/Off Footwear (QC): 3 Additional Goals: 1-Demonstrate ADL Tasks, 2-Verbalize Understanding, 3-ImproveStrength/Pepe 1=Demonstrate adherence to instructed precautions during ADL tasks. 2=Patient will verbalize/demonstrate understanding of assistive devices/modifications for ADL. 3=Patient will improve strength/tolerance for activity to enable patient to perform ADL's. OT Education/Plan Problem List/Assessment Assessment: Decreased Activ Tolerance, Decreased UE Strength, Dependent Transfers, Impaired Funct Balance, Impaired I ADL's, Impaired Self-Care Skills Discharge Recommendations Plan/Recommendations: Continue POC Treatment Plan/Plan of Care Patient would benefit from OT for education, treatment and training to promote independence in ADL's, mobility, safety and/or upper extremity function for ADL's. Plan of Care: ADL Retraining, Functional Mobility, Group Exercise/Act as Ind, UE Funct Exercise/Act Treatment Duration: Aug 21, 2023 Frequency: At least 5 of 7 days/Wk (IRF) Estimated Hrs Per Day: 1 hour per day Agreement: Yes Rehab Potential: Fair Time Start Time: 10:00 Stop Time: 11:00 DATE: Aug 04, 2023 Total Time Billed (hr/min): 60 Billed Treatment Time cotreat x60' 1, FA 4 ROHITH BLANTON OT Aug 04, 2023 10:59
--- NOTE | 2023-08-04 14:51 | Physical Therapy Daily Note ---
PT Daily Note-Current Subjective Pt is agreeable to PT. Denies pain Pain Numeric Pain Scale: 0-No Pain Location: No Pain Reported Section J - Health Conditions 1. Rarely or not at all 2. Occasionally 3. Frequently 4. Almost constantly 8. Unable to answer Pain Effect on Sleep: 1 Pain Interference with Therapy: 1 Pain Interference w/Day-to-Day: 1 Mental Status Attachments: Oxygen (2L ) Transfers SCALE: Activities may be completed with or without assistive devices. 8-Ecljfibvwu-ouivvwg completes the activity by him/herself with no assistance from a helper. 5-Set-up or Clean-up Assistance-helper sets up or cleans up; patient completes activity. [place] assists only prior to or following the activity. 4-Supervision or Touching Assistance-helper provides verbal cues and/or t ouching/steadying and/or contact guard assistance as patient completes activity. Assistance may be provided throughout the activity or intermittently. 3-Partial/Moderate Assistance-helper does LESS THAN HALF the effort. [place] lifts, holds or supports trunk or limbs, but provides less than half the effort. 2-Substantial/Maximal Assistance-helper does MORE THAN HALF the effort. [place] lifts or holds trunk or limbs and provides more than half the effort. 7-Heqrpckdj-ufbfpu does ALL the effort. Patient does none of the effort to complete the activity. Or, the assistance of 2 or more helpers is required for the patient to complete the activity. If activity was not attempted, code reason: 7-Patient Refused. 9-Not Applicable-not attempted and the patient did not perform the activity before the current illness, exacerbation or injury. 10-Not Attempted due to Environmental Limitations-(lack of equipment, weather restraints, etc.). 88-Not Attempted due to Medical Conditions or Safety Concerns. Roll Left & Right (QC): 3 Sit to Lying (QC): 3 Sit to Stand (QC): 1 Chair/Ywa-tf-Zhsxp Xfer(QC): 1 Weight Bearing Weight Bearing/Tolerated Weight Bearing/Tolerated Gait Training Does the Patient Walk?: No and Walking Goal IS indicated Wheelchair Training Does the Pt Use a Wheelchair?: Yes Wheel 50 ft with 2 turns (QC): 3 Wheel 150 ft (QC): 88 Type of Wheelchair: Manual Treatments PT/OT co-tx from [id number], due to skill of 2 clinicians required which a rehabilitation inspector could not perform in order to coordinate UE/LEs, decrease fall risk, and due to pt's limitations in strength, activity tolerance, mobility and transfers. PT focused on bed mobility, LE placement, gross overall movement, w/c mobility, transfers and overall functional mobility, while OT focused on UE placement, ADLs, and cues for sequencing and safety. Pt completed supine B LE Ther Ex x 15 reps each. Pt completed supine > sit with Min A. Sit to stand lift was utilized for bed > w/c transfer and w/c > recliner transfer. Pt completed w/c mobility 70ft x 2 with SBA/Min A for turns. Pt completed sit to stand x 3 in the // bars with Min-Mod A x 2. Pt stood for 30 seconds, 1 min, and 1 min 30 seconds. Pt required Mod/Max encouragement to stand longer with upright posture. Post treatment, pt in recliner, call light in reach, and all needs met. Assessment Current Status: Fair Progress Pt tolerated PT well with good effort, but requires encouragement to push herself PT Drying Room Attendant Goals Shelter Goals PT Drying Room Attendant Goals Time Frame: Aug 17, 2023 Roll Left & Right (QC): 6 (in bed or recliner) Sit to Lying (QC): 6 (in bed or recliner.) Lying-Sitting on Side/Bed(QC): 4 Sit to Stand (QC): 4 Chair/Ikg-uo-Xktvp Xfer(QC): 4 Toilet Transfer (QC): 4 Car Transfer (QC): 4 Does the Patient Walk: No and Walking Goal IS indicated Walk 10 feet (QC): 4 (with FWW or 4WW) Walk 50ft with 2 Turns (QC): 4 Walk 150 ft (QC): 9 Walking 10ft on Uneven Surface: 4 1 Step (curb) (QC): 3 4 Steps (QC): 9 12 Steps (QC): 9 Picking up an Object (QC): 4 Does the Pt use WC or Scooter?: Yes Wheel 50 feet with 2 turns (QC: 6 Type: Manual Wheel 150 feet: 6 Type: Motorized PT Plan Problem List Problem List: Activity Tolerance, Functional Strength, Safety, Balance, Gait, Transfer, Bed Mobility, ROM Treatment/Plan Treatment Plan: Continue Plan of Care Treatment Plan: Bed Mobility, Education, Functional Activity Pepe, Functional Strength, Group Therapy, Gait, Safety, Therapeutic Exercise, Transfers, Other (W/C mobility) Treatment Duration: Aug 17, 2023 Frequency: At least 5 of 7 days/Wk (IRF) Estimated Hrs Per Day: 1.5 hours per day Safety Risks/Education Patient Education: Transfer Techniques, Correct Positioning, W/C Management, Safety Issues Teaching Recipient: Patient Teaching Methods: Demonstration, Discussion Response to Teaching: Verbalize Understanding, Return Demonstration, Reinforcement Needed Discharge Recommendations Therapy Discharge Recommendati: 24 Hour Supervision Discharge Status/Home Program Cont per POC Barriers to Progress Weakness; Self-limiting at times Target Placement SNF Time Time In: 930 Time Out: 1100 DATE: Aug 04, 2023 Total Billed Treatment Time: 90 Total Billed Treatment 90 min total from [id number]; 60 min co-tx from [id number] 1 visit EX x 2 FA x 4 SCOTT ROBERTS PT Aug 04, 2023 14:51
[2023-08-04 20:20] VITALS: BP 128/67
[2023-08-05] MEDS: SUCRALFATE 1 GM TABLET PO SCH ×4 (00:36→17:47)
[2023-08-05] MEDS: ACETAMINOPHEN 325 MG TABLET PO PRN (06:03)
[2023-08-05] MEDS: LEVOTHYROXINE 125 MCG TABLET PO SCH (06:03)
[2023-08-05] MEDS: PANTOPRAZOLE 40 MG TABLET PO SCH (06:03)
[2023-08-05] MEDS: THERAPEUTIC MULTIVITAMIN W/MINERALS TABLET PO SCH (06:03)
[2023-08-05] MEDS: CATHETER FLUSH 10 ML SYR IVP SCH ×3 (06:04→22:07)
[2023-08-05] MEDS: POTASSIUM BICARB 20 MEQ effervescent TABLET PO SCH ×3 (07:53→22:06)
[2023-08-05] MEDS: APIXABAN 5 MG TABLET PO SCH ×2 (07:54→22:06)
[2023-08-05] MEDS: SENNA W/DOCUSATE TABLET PO SCH ×2 (07:54→20:33)
[2023-08-05] MEDS: rOPINIRole 0.25 MG TABLET PO SCH ×3 (07:54→22:07)
[2023-08-05] MEDS: SERTRALINE 50 MG TABLET PO SCH (07:54)
[2023-08-05] MEDS: DOCUSATE SODIUM 100 MG CAPSULE PO SCH ×2 (07:54→20:33)
[2023-08-05] MEDS: predniSONE 20 MG TABLET PO SCH (07:55)
--- NOTE | 2023-08-05 07:55 | Physical Therapy Daily Note ---
PT Daily Note-Current Subjective Pt is agreeable to PT. Denies pain. Pain Numeric Pain Scale: 0-No Pain Location: No Pain Reported Section J - Health Conditions 1. Rarely or not at all 2. Occasionally 3. Frequently 4. Almost constantly 8. Unable to answer Pain Effect on Sleep: 1 Pain Interference with Therapy: 1 Pain Interference w/Day-to-Day: 1 Mental Status Attachments: Oxygen (1.5L) Transfers SCALE: Activities may be completed with or without assistive devices. 2-Xzqvrcmtvg-cdygusa completes the activity by him/herself with no assistance from a helper. 5-Set-up or Clean-up Assistance-helper sets up or cleans up; patient completes activity. [place] assists only prior to or following the activity. 4-Supervision or Touching Assistance-helper provides verbal cues and/or touching/steadying and/or contact guard assistance as patient completes activity. Assistance may be provided throughout the activity or intermittently. 3-Partial/Moderate Assistance-helper does LESS THAN HALF the effort. [place] lifts, holds or supports trunk or limbs, but provides less than half the effort. 2-Substantial/Maximal Assistance-helper does MORE THAN HALF the effort. [place] lifts or holds trunk or limbs and provides more than half the effort. 9-Xkphcilkp-covgag does ALL the effort. Patient does none of the effort to complete the activity. Or, the assistance of 2 or more helpers is required for the patient to complete the activity. If activity was not attempted, code reason: 7-Patient Refused. 9-Not Applicable-not attempted and the patient did not perform the activity before the current illness, exacerbation or injury. 10-Not Attempted due to Environmental Limitations-(lack of equipment, weather restraints, etc.). 88-Not Attempted due to Medical Conditions or Safety Concerns. Roll Left & Right (QC): 6 (with bed rails ) Sit to Lying (QC): 3 (Min A ) Lying to Sitting/Side of Bed(Q: 3 (Min A ) Sit to Stand (QC): 3 (Mod A in // bars ) Chair/Zmi-it-Flngw Xfer(QC): 1 (Sit to stand lift) Toilet Transfer (QC): 9 Car Transfer (QC): 88 Weight Bearing Right Lower Extremity: Right Weight Bearing/Tolerated Left Lower Extremity: Left Weight Bearing/Tolerated Gait Training Does the Patient Walk?: Yes Distance: 5ft x 2 in the // bars Walk 10 feet (QC): 88 Walk 50 ft with 2 Turns(QC): 88 Walk 150 ft (QC): 88 Walking 10ft/uneven surface-QC: 88 Gait Persons Needed: 2 Gait Assistive Device: Parallel Bars Wheelchair Training Does the Pt Use a Wheelchair?: Yes Wheel 50 ft with 2 turns (QC): 5 Wheel 150 ft (QC): 5 Type of Wheelchair: Manual Stair Training 1 Step (curb) (QC): 88 4 Steps (QC): 88 12 Steps (QC): 88 Balance Picking up an Object (QC): 88 Special Test Comments [facility] standing balance scale = 2/5 Treatments PT/OT co-tx from [id number], due to skill of 2 clinicians required which a clinical rehabilitation coordinator could not perform in order to coordinate UE/LEs, decrease fall risk, and due to pt's limitations in strength, activity tolerance, mobility and transfers. PT focused on bed mobility, LE placement, gross overall movement, w/c mobility, transfers, walking, and overall functional mobility, while OT focused on UE placement, ADLs, and cues for sequencing and safety. QCs completed on this date. Pt completed B rolling with Mod I. Pt completed supine <> sit with Min A. Sit to stand lift was utilized for bed > w/c transfer and w/c > recliner transfer. Pt completed w/c mobility x 150ft with SBA/Mod I. Pt completed sit to stand x 2 in the // bars with Mod A. Pt ambulated 5ft x 2 in the // bars with Min A. Post treatment, pt in recliner, call light in reach, and all needs met. Assessment Current Status: Good Progress Pt tolerated PT well with good effort on this date; Pt is progressing well PT Senior Living Goals Auto Servicer Goals PT Auto Servicer Goals Time Frame: Aug 17, 2023 Roll Left & Right (QC): 6 (in bed or recliner) Sit to Lying (QC): 6 (in bed or recliner.) Lying-Sitting on Side/Bed(QC): 4 Sit to Stand (QC): 4 Chair/Bqf-gi-Gnnbx Xfer(QC): 4 Toilet Transfer (QC): 4 Car Transfer (QC): 4 Does the Patient Walk: No and Walking Goal IS indicated Walk 10 feet (QC): 4 (with FWW or 4WW) Walk 50ft with 2 Turns (QC): 4 Walk 150 ft (QC): 9 Walking 10ft on Uneven Surface: 4 1 Step (curb) (QC): 3 4 Steps (QC): 9 12 Steps (QC): 9 Picking up an Object (QC): 4 Does the Pt use WC or Scooter?: Yes Wheel 50 feet with 2 turns (QC: 6 Type: Manual Wheel 150 feet: 6 Type: Motorized PT Plan Problem List Problem List: Activity Tolerance, Functional Strength, Safety, Balance, Gait, Transfer, Bed Mobility, ROM Treatment/Plan Treatment Plan: Continue Plan of Care Treatment Plan: Bed Mobility, Education, Functional Activity Pepe, Functional Strength, Group Therapy, Gait, Safety, Therapeutic Exercise, Transfers, Other (W/C mobility) Treatment Duration: Aug 17, 2023 Frequency: At least 5 of 7 days/Wk (IRF) Estimated Hrs Per Day: 1.5 hours per day Safety Risks/Education Patient Education: Gait Training, Transfer Techniques, Correct Positioning, W/C Management, Safety Issues Teaching Recipient: Patient Teaching Methods: Demonstration, Discussion Response to Teaching: Verbalize Understanding, Return Demonstration, Reinforcement Needed Discharge Recommendations Therapy Discharge Recommendati: 24 Hour Supervision Equpiment Recommendations-D/C: None Discharge Status/Home Program Cont per POC Barriers to Progress B LE weakness; Self-limiting at times Target Placement SNF Time Time In: 800 Time Out: 930 DATE: Aug 05, 2023 Total Billed Treatment Time: 90 Total Billed Treatment 90 min total co-tx from [id number] 1 visit GT x 1 FA x 5 SCOTT ROBERTS PT Aug 05, 2023 07:54
[2023-08-05 08:10] VITALS: BP 138/68
--- NOTE | 2023-08-05 09:40 | Occupational Ther Daily Note ---
OT Current Status-Daily Note Subjective Pt agreeable to OT Tx. Mental Status/Objective Patient Orientation: Normal For Age ADL-Treatment Therapy Code Descriptions/Definitions Functional [place] Measure: 0=Not Assessed/NA 4=Minimal Assistance 1=Total Assistance 5=Supervision or Setup 2=Maximal Assistance 6=Modified [place] 3=Moderate Assistance 7=Complete IndependenceSCALE: Activities may be completed with or without assistive devices. 3-Zgoqdndclg-ujrlnui completes the activity by him/herself with no assistance from a helper. 5-Set-up or Clean-up Assistance-helper sets up or cleans up; patient completes activity. [place] assists only prior to or following the activity. 4-Supervision or Touching Assistance-helper provides verbal cues and/or touching/steadying and/or contact guard assistance as patient completes activity . Assistance may be provided throughout the activity or intermittently. 3-Partial/Moderate Assistance-helper does LESS THAN HALF the effort. [place] lifts, holds or supports trunk or limbs, but provides less than half the effort. 2-Substantial/Maximal Assistance-helper does MORE THAN HALF the effort. [place] lifts or holds trunk or limbs and provides more than half the effort. 7-Jhighnnob-tuifvp does ALL the effort. Patient does none of the effort to complete the activity. Or, the assistance of 2 or more helpers is required for the patient to complete the activity. If activity was not attempted, code reason: 7-Patient Refused. 9-Not Applicable-not attempted and the patient did not perform the activity before the current illness, exacerbation or injury. 10-Not Attempted due to Environmental Limitations-(lack of equipment, weather restraints, etc.). 88-Not Attempted due to Medical Conditions or Safety Concerns. Eating (QC): 5 Oral Hygiene (QC): 6 Shower/Bathe Self (QC): 1 (Total assist bed bath per RN) Upper Body Dressing (QC): 3 (Min A with eddie puente) Lower Body Dressing (QC): 1 (Sit to stand lift required) On/Off Footwear: 1 Toileting Hygiene (QC): 1 (sit to stand lift required) Other Treatment OT/PT cotreat due to skill of 2 clinicians required which a rehab therapist could not perform in order to coordinate UE/LEs, decrease fall risk, and due to pt's limitations in strength, activity tolerance, mobility and transfers. OT focused on UE placement, ADLs, and cues for sequencing and safety, PT focused on LE placement, gross overall movement, transfers and mobility. Pt transferred supine to sit EOB, then sit to stand lift utilized to transfer to w/c. pt propelled w/c around [facility] common area/2nd floor, then taken into therapy gym. Pt stood in parallel bars, and performed functional mobility in parallel bars x2 trials, encouragement required with tasks. Pt taken to her room, completed grooming tasks at sink independently, then sit to stand lift transfer to recliner. Post tx, pt in recliner, call light in reach and all needs met. Mod I rolling in bed, min A supine to/from sit. SBA-mod I with w/c mobility 150'. Sit to stand x2 in // bars mod A, ambulated 5' x2 in parallel bars min A w/c follow. BIMS CAM BIMS Expression of Ideas and Wants: Without Difficulty Understanding Verbal Content: Understands Brief Interview/Mental Status: Yes IRF KATE BIMS: IRF KATE BIMS Response (Comments) Value Repitition of Three Words Three 3 Recalls Socks Yes, No Cue Required 2 Recalls Blue Yes, No Cue Required 2 Recalls Bed Yes, No Cue Required 2 Year Correct 3 Month Accurate Within 5 Days 2 Day Incorrect or No Answer 0 Total 14 CAM Mental Status Change/Baseline: 0 Inattention: 0 Disorganized thinkin Altered level of consciousness: 0 OT Short Term Goals Short Term Goals Time Frame: Aug 12, 2023 Shower/bathe self: 3 Upper body dressin Lower body dressin OT Core Checker Goals Snf Goals Time Frame: Aug 21, 2023 Acute change in mental status: 0 Inattention: 0 Disorganized thinkin Altered level of consciousness: 0 Eating (QC): 6 Oral Hygiene (QC): 6 Toileting Hygiene (QC): 6 Shower/Bathe Self (QC): 5 Upper Body Dressing (QC): 5 Lower Body Dressing (QC): 5 On/Off Footwear (QC): 3 Additional Goals: 1-Demonstrate ADL Tasks, 2-Verbalize Understanding, 3- ImproveStrength/Pepe 1=Demonstrate adherence to instructed precautions during ADL tasks. 2=Patient will verbalize/demonstrate understanding of assistive devices/modifications for ADL. 3=Patient will improve strength/tolerance for activity to enable patient to perform ADL's. OT Education/Plan Problem List/Assessment Assessment: Decreased Activ Tolerance, Decreased UE Strength, Dependent Transfers, Impaired Funct Balance, Impaired I ADL's, Impaired Self-Care Skills Discharge Recommendations Plan/Recommendations: Continue POC Treatment Plan/Plan of Care Patient would benefit from OT for education, treatment and training to promote independence in ADL's, mobility, safety and/or upper extremity function for ADL's. Plan of Care: ADL Retraining, Functional Mobility, Group Exercise/Act as Ind, UE Funct Exercise/Act Treatment Duration: Aug 21, 2023 Frequency: At least 5 of 7 days/Wk (IRF) Estimated Hrs Per Day: 1 hour per day Agreement: Yes Rehab Potential: Fair Time Start Time: 08:00 Stop Time: 09:30 DATE: Aug 05, 2023 Total Time Billed (hr/min): 90 Billed Treatment Time cotreat x90' 1, FA 5 (75'), ADL (15') ROHITH BLANTON OT Aug 05, 2023 09:40
--- NOTE | 2023-08-05 09:49 | PM&R Progress Note ---
Subjective HPI/CC On Admission Date Seen by Provider: Aug 05, 2023 Time Seen by Provider: 09:45 Subjective/Events-last exam 08/05/2023: Awaiting NHP No falls No pain reported IVIG is not accessible in SNF 08/04/2023: Supportive care continues Still very weak Looking for skilled care 08/03/2023: No major issues Prednisone had not been given as ordered since it was as directed and not confirmed by pharmacy Still very weak Needs NHP 08/02/2023: Moving a little better Still sit to stand I see no capability of going home independently We will continue supportive care 08/01/2023: Patient doing well Getting stronger since IVIG No falls No pain Eating and drinking well 07/31/2023: Still very weak Lungs remain stable No pain is reported IVIG infusing 07/30/2023: Still very weak IVIG today and tomorrow IVF in-between No falls but increased risk 07/29/2023: Severe weakness noted IVIG tomorrow and she hopes it will give her a little bit of energy No falls but high risk 07/28/2023: Doing well until hypotensive and hypoxic this am No falls Very weak BM+ 07/27/2023: Patient doing a lot better No pain is reported No falls Weakness is profound Requesting team patch Miconazole powder will be initiated Review of Systems General: Fatigue, Malaise Objective Exam Vital Signs Vital Signs Date Time Temp Pulse Resp B/P (MAP) Pulse Ox O2 Delivery O2 Flow Rate FiO2 08/05/23 09:10 Nasal Cannula 1.50 08/05/23 08:10 36.6 88 18 138/68 (91) 96 Capillary Refill : General Appearance: No Apparent Distress, WD/WN, Chronically ill, Obese HEENT: PERRL/EOMI, Normal ENT Inspection, Pharynx Normal Neck: Full Range of Motion, Normal Inspection, Non Tender, Supple, Carotid Bruit Respiratory: Chest Non Tender, Lungs Clear, Normal Breath Sounds, No Accessory Muscle Use, No Respiratory Distress Cardiovascular: Regular Rate, Rhythm, No Edema, No Gallop, No JVD, No Murmur, Normal Peripheral Pulses Gastrointestinal: Normal Bowel Sounds, No Organomegaly, No Pulsatile Mass, Non Tender, Soft Back: Normal Inspection, No CVA Tenderness, No Vertebral Tenderness Extremity: Normal Capillary Refill, Normal Inspection, Normal Range of Motion, Non Tender, No Calf Tenderness, No Pedal Edema Neurologic/Psychiatric: Alert, Oriented x3, director of campus recreation II-XII Norm as Tested, Abnormal Gait, Depressed Affect, Motor Weakness Skin: Normal Color, Warm/Dry Lymphatic: No Adenopathy Results/Procedures Lab Patient resulted labs reviewed. FIM Transfers Therapy Code Descriptions/Definitions Functional [place] Measure: 0=Not Assessed/NA 4=Minimal Assistance 1=Total Assistance 5=Supervision or Setup 2=Maximal Assistance 6=Modified [place] 3=Moderate Assistance 7=Complete IndependenceSCALE: Activities may be completed with or without assistive devices. 0-Ulgjjqcwhr-pkubjdz completes the activity by him/herself with no assistance from a helper. 5-Set-up or Clean-up Assistance-helper sets up or cleans up; patient completes activity. [place] assists only prior to or following the activity. 4-Supervision or Touching Assistance-helper provides verbal cues and/or touching/steadying and/or contact guard assistance as patient completes acti vity. Assistance may be provided throughout the activity or intermittently. 3-Partial/Moderate Assistance-helper does LESS THAN HALF the effort. [place] lifts, holds or supports trunk or limbs, but provides less than half the effort. 2-Substantial/Maximal Assistance-helper does MORE THAN HALF the effort. [place] lifts or holds trunk or limbs and provides more than half the effort. 4-Ybsutobkp-vqtbzh does ALL the effort. Patient does none of the effort to complete the activity. Or, the assistance of 2 or more helpers is required for the patient to complete the activity. If activity was not attempted, code reason: 7-Patient Refused. 9-Not Applicable-not attempted and the patient did not perform the activity before the current illness, exacerbation or injury. 10-Not Attempted due to Environmental Limitations-(lack of equipment, weather restraints, etc.). 88-Not Attempted due to Medical Conditions or Safety Concerns. Roll Left to Right (QC): 6 (with bed rails ) Sit to Lying (QC): 3 (Min A ) Sit to Stand (QC): 3 (Mod A in // bars ) Chair/Nfa-kd-Buplp Xfer(QC): 1 (Sit to stand lift) Car Transfer (QC): 88 Gait Training Does the Patient Walk?: Yes Distance: 5ft x 2 in the // bars Walk 10 feet (QC): 88 Walk 50 ft with 2 Turns(QC): 88 Walk 150 ft (QC): 88 Walking 10ft/uneven surface-QC: 88 Gait Persons Needed: 2 Gait Assistive Device: Parallel Bars Wheelchair Training Does the Pt Use a Wheelchair?: Yes Distance: 60' x 2 Wheel 50 ft with 2 turns (QC): 5 Wheel 150 ft (QC): 5 Type of Wheelchair: Manual Stair Training 1 Step (curb) (QC): 88 4 Steps (QC): 88 12 Steps (QC): 88 Balance Picking up an Object (QC): 88 ADL-Treatment Eating (QC): 5 Oral Hygiene (QC): 6 Shower/Bathe Self (QC): 1 (Total assist bed bath per RN) Upper Body Dressing (QC): 3 (Min A with eddie puente) Lower Body Dressing (QC): 1 (Sit to stand lift required) On/Off Footwear (QC): 1 Toileting Hygiene (QC): 1 (sit to stand lift required) Toilet Transfer (QC): 1 Assessment/Plan Assessment and Plan Assess & Plan/Chief Complaint Assessment: 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 on prednisone taper dose and will receives IVIG every 2 weeks Chronic atrial fibrillation Anemia requiring transfusion on 07/25/2023 On oral anticoagulation for stroke prophylaxis Hypertension GERD Recent hyponatremia Recent hypokalemia Obesity Severe constipation no BM for 9 days upon arrival Resolved Mild hyponatremia Plan: Bowel regimen PT and OT Home meds Prednisone taper dose Monitor closely 07/27/2023: Replace potassium Supportive care Fall risk 07/28/2023: Monitor hypoxia CXR and labs reviewed 07/29/2023: IVIG tomorrow Monitor closely 07/30/2023: IVIG today and Thursday Monitor closely 07/31/2023: Supportive care IVIG 08/01/2023: Supportive care Monitor closely 08/02/2023: Supportive care 08/03/2023: Restart Prednisone 08/04/2023: Await skilled care 08/05/2023: Monitor closely (1) CIDP (chronic inflammatory demyelinating polyneuropathy) KONG TY DO Aug 05, 2023 09:49
[2023-08-05] MEDS: NICOTINE 21 MG PATCH TD SCH (10:15)
[2023-08-05] MEDS: NICOTINE PATCH REMOVAL TP SCH (10:16)
[2023-08-05] MEDS: MICONAZOLE 2% POWDER 90 GM TOP SCH ×2 (10:16→22:07)
[2023-08-05 20:16] VITALS: BP 126/62
[2023-08-06] MEDS: ACETAMINOPHEN 325 MG TABLET PO PRN (00:19)
[2023-08-06] MEDS: SUCRALFATE 1 GM TABLET PO SCH ×4 (00:19→18:21)
--- NOTE | 2023-08-06 05:15 | PM&R Progress Note ---
Subjective HPI/CC On Admission Date Seen by Provider: Aug 06, 2023 Time Seen by Provider: 12:30 Subjective/Events-last exam 08/06/2023: Ready for DC to [facility] tomorrow No issues No pain 08/05/2023: Awaiting NHP No falls No pain reported IVIG is not accessible in SNF 08/04/2023: Supportive care continues Still very weak Looking for skilled care 08/03/2023: No major issues Prednisone had not been given as ordered since it was as directed and not confirmed by pharmacy Still very weak Needs NHP 08/02/2023: Moving a little better Still sit to stand I see no capability of going home independently We will continue supportive care 08/01/2023: Patient doing well Getting stronger since IVIG No falls No pain Eating and drinking well 07/31/2023: Still very weak Lungs remain stable No pain is reported IVIG infusing 07/30/2023: Still very weak IVIG today and tomorrow IVF in-between No falls but increased risk 07/29/2023: Severe weakness noted IVIG tomorrow and she hopes it will give her a little bit of energy No falls but high risk 07/28/2023: Doing well until hypotensive and hypoxic this am No falls Very weak BM+ 07/27/2023: Patient doing a lot better No pain is reported No falls Weakness is profound Requesting team patch Miconazole powder will be initiated Review of Systems General: Fatigue, Malaise Objective Exam Vital Signs Vital Signs Date Time Temp Pulse Resp B/P (MAP) Pulse Ox O2 Delivery O2 Flow Rate FiO2 08/06/23 19:27 36.2 93 18 129/65 (86) 98 Nasal Cannula 2.00 Capillary Refill : General Appearance: No Apparent Distress, WD/WN, Chronically ill, Obese HEENT: PERRL/EOMI, Normal ENT Inspection, Pharynx Normal Neck: Full Range of Motion, Normal Inspection, Non Tender, Supple, Carotid Bruit Respiratory: Chest Non Tender, Lungs Clear, Normal Breath Sounds, No Accessory Muscle Use, No Respiratory Distress Cardiovascular: Regular Rate, Rhythm, No Edema, No Gallop, No JVD, No Murmur, Normal Peripheral Pulses Gastrointestinal: Normal Bowel Sounds, No Organomegaly, No Pulsatile Mass, Non Tender, Soft Back: Normal Inspection, No CVA Tenderness, No Vertebral Tenderness Extremity: Normal Capillary Refill, Normal Inspection, Normal Range of Motion, Non Tender, No Calf Tenderness, No Pedal Edema Neurologic/Psychiatric: Alert, Oriented x3, conference service coordinator II-XII Norm as Tested, Abnormal Gait, Depressed Affect, Motor Weakness Skin: Normal Color, Warm/Dry Lymphatic: No Adenopathy Results/Procedures Lab Patient resulted labs reviewed. FIM Transfers Therapy Code Descriptions/Definitions Functional [place] Measure: 0=Not Assessed/NA 4=Minimal Assistance 1=Total Assistance 5=Supervision or Setup 2=Maximal Assistance 6=Modified [place] 3=Moderate Assistance 7=Complete IndependenceSCALE: Activities may be completed with or without assistive devices. 1-Oiusezhjlo-svgvggz completes the activity by him/herself with no assistance from a helper. 5-Set-up or Clean-up Assistance-helper sets up or cleans up; patient completes activity. [place] assists only prior to or following the activity. 4-Supervision or Touching Assistance-helper provides verbal cues and/or touching/steadying and/or contact guard assistance as patient completes activity. Assistance may be provided throughout the activity or intermittently. 3-Partial/Moderate Assistance-helper does LESS THAN HALF the effort. [place] lifts, holds or supports trunk or limbs, but provides less than half the effort. 2-Substantial/Maximal Assistance-helper does MORE THAN HALF the effort. [place] lifts or holds trunk or limbs and provides more than half the effort. 4-Terobwzpz-wdswje does ALL the effort. Patient does none of the effort to c omplete the activity. Or, the assistance of 2 or more helpers is required for the patient to complete the activity. If activity was not attempted, code reason: 7-Patient Refused. 9-Not Applicable-not attempted and the patient did not perform the activity before the current illness, exacerbation or injury. 10-Not Attempted due to Environmental Limitations-(lack of equipment, weather restraints, etc.). 88-Not Attempted due to Medical Conditions or Safety Concerns. Roll Left to Right (QC): 6 (with bed rails ) Sit to Lying (QC): 3 (Min A ) Sit to Stand (QC): 3 (Mod A in // bars ) Chair/Pmj-bl-Adnbc Xfer(QC): 1 (Sit to stand lift) Car Transfer (QC): 88 Gait Training Does the Patient Walk?: Yes Distance: 5ft x 2 in the // bars Walk 10 feet (QC): 88 Walk 50 ft with 2 Turns(QC): 88 Walk 150 ft (QC): 88 Walking 10ft/uneven surface-QC: 88 Gait Persons Needed: 2 Gait Assistive Device: Parallel Bars Wheelchair Training Does the Pt Use a Wheelchair?: Yes Distance: 60' x 2 Wheel 50 ft with 2 turns (QC): 5 Wheel 150 ft (QC): 5 Type of Wheelchair: Manual Stair Training 1 Step (curb) (QC): 88 4 Steps (QC): 88 12 Steps (QC): 88 Balance Picking up an Object (QC): 88 ADL-Treatment Eating (QC): 5 Oral Hygiene (QC): 6 Shower/Bathe Self (QC): 1 (Total assist bed bath per RN) Upper Body Dressing (QC): 3 (Min A with eddie puente) Lower Body Dressing (QC): 1 (Sit to stand lift required) On/Off Footwear (QC): 1 Toileting Hygiene (QC): 1 (sit to stand lift required) Toilet Transfer (QC): 1 Assessment/Plan Assessment and Plan Assess & Plan/Chief Complaint Assessment: 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 on prednisone taper dose and will receives IVIG every 2 weeks Chronic atrial fibrillation Anemia requiring transfusion on 07/25/2023 On oral anticoagulation for stroke prophylaxis Hypertension GERD Recent hyponatremia Recent hypokalemia Obesity Severe constipation no BM for 9 days upon arrival Resolved Mild hyponatremia Plan: Bowel regimen PT and OT Home meds Prednisone taper dose Monitor closely 07/27/2023: Replace potassium Supportive care Fall risk 07/28/2023: Monitor hypoxia CXR and labs reviewed 07/29/2023: IVIG tomorrow Monitor closely 07/30/2023: IVIG today and Thursday Monitor closely 07/31/2023: Supportive care IVIG 08/01/2023: Supportive care Monitor closely 08/02/2023: Supportive care 08/03/2023: Restart Prednisone 08/04/2023: Await skilled care 08/05/2023: Monitor closely 08/06/2023: DC tomorrow to [place] (1) CIDP (chronic inflammatory demyelinating polyneuropathy) KONG TY DO Aug 06, 2023 05:15
[2023-08-06] MEDS: THERAPEUTIC MULTIVITAMIN W/MINERALS TABLET PO SCH (06:48)
[2023-08-06] MEDS: LEVOTHYROXINE 125 MCG TABLET PO SCH (06:48)
[2023-08-06] MEDS: CATHETER FLUSH 10 ML SYR IVP SCH ×3 (06:48→20:34)
[2023-08-06] MEDS: PANTOPRAZOLE 40 MG TABLET PO SCH (06:48)
[2023-08-06] MEDS: APIXABAN 5 MG TABLET PO SCH ×2 (07:55→20:34)
[2023-08-06] MEDS: SERTRALINE 50 MG TABLET PO SCH (07:55)
[2023-08-06] MEDS: rOPINIRole 0.25 MG TABLET PO SCH ×3 (07:55→20:35)
[2023-08-06] MEDS: DOCUSATE SODIUM 100 MG CAPSULE PO SCH ×2 (07:56→20:01)
[2023-08-06] MEDS: SENNA W/DOCUSATE TABLET PO SCH ×2 (07:56→20:01)
[2023-08-06] MEDS: NICOTINE 21 MG PATCH TD SCH (07:56)
[2023-08-06] MEDS: predniSONE 20 MG TABLET PO SCH (07:57)
[2023-08-06] MEDS: POTASSIUM BICARB 20 MEQ effervescent TABLET PO SCH ×3 (07:57→20:34)
[2023-08-06 08:00] VITALS: BP 167/69
[2023-08-06] MEDS: MICONAZOLE 2% POWDER 90 GM TOP SCH ×2 (08:03→20:36)
[2023-08-06] MEDS: NICOTINE PATCH REMOVAL TP SCH (08:03)
--- NOTE | 2023-08-06 10:02 | Occupational Ther Daily Note ---
OT Current Status-Daily Note Subjective Pt in bed, agreeable to therapy with slight encouragement. Pt states she feels tired. Mental Status/Objective Patient Orientation: Normal For Age Attachments: Oxygen (1.5L) ADL-Treatment Therapy Code Descriptions/Definitions Functional [place] Measure: 0=Not Assessed/NA 4=Minimal Assistance 1=Total Assistance 5=Supervision or Setup 2=Maximal Assistance 6=Modified [place] 3=Moderate Assistance 7=Complete IndependenceSCALE: Activities may be completed with or without assistive devices. 8-Gklgapxdnf-uybsuqw completes the activity by him/herself with no assistance from a helper. 5-Set-up or Clean-up Assistance-helper sets up or cleans up; patient completes activity. [place] assists only prior to or following the activity. 4-Supervision or Touching Assistance-helper provides verbal cues and/or touching/steadying and/or contact guard assistance as patient completes activity. Assistance may be provided throughout the activity or intermittently. 3-Partial/Moderate Assistance-helper does LESS THAN HALF the effort. [place] lifts, holds or supports trunk or limbs, but provides less than half the effort. 2-Substantial/Maximal Assistance-helper does MORE THAN HALF the effort. [place] lifts or holds trunk or limbs and provides more than half the effort. 9-Wdmbyahps-clmpfc does ALL the effort. Patient does none of the effort to complete the activity. Or, the assistance of 2 or more helpers is required for the patient to complete the activity. If activity was not attempted, code reason: 7-Patient Refused. 9-Not Applicable-not attempted and the patient did not perform the activity before the current illness, exacerbation or injury. 10-Not Attempted due to Environmental Limitations-(lack of equipment, weather restraints, etc.). 88-Not Attempted due to Medical Conditions or Safety Concerns. Other Treatment OT/PT cotreat due to skill of 2 clinicians required which a clinical rehabilitation aide could not perform in order to coordinate UE/LEs, decrease fall risk, and due to pt's limitations in strength, activity tolerance, mobility and transfers. OT focused on UE placement, ADLs, and cues for sequencing and safety, PT focused on LE placement, gross overall movement, transfers and mobility. Pt in bed, transferred supine to sit EOB, then sit to stand lift utilized to transfer to w/c. Pt taken to 1st floor then education provided on going up/down ramp via w/c. Pt verbalized understanding but required hand over hand assistance at times. Pt returned to therapy gym via w/c. Pt used FWW to perform functional mobility 12', then 24' with slight encouragement. Pt completed seated balloon toss activity, using dowel ignacio in UES to "bat" at balloon, and used BLEs to kick balloon. Pt taken back to her room via w/c. Pt attempted to stand, requiring 3 attempts prior to attaining stand at FWW, then she transferred to recliner. Post tx, pt in recliner, call light in reach and all needs met. SBA rolling, SBA supine to sit EOB (HOB elevated), sit to stand min-mod A x1-2, Chair to bed transfer min-mod A x1-2 Education OT Patient Education: Correct positioning, Energy conservation, Modified ADL techniques, Progress toward Goal/Update tx plan, Purpose of tx/functional activities, Rehab process Teaching Recipient: Patient Teaching Methods: Discussion Response to Teaching: Verbalize Understanding OT Short Term Goals Short Term Goals Time Frame: Aug 12, 2023 Shower/bathe self: 3 Upper body dressin Lower body dressin OT Open Cut Examiner Goals Open Cut Examiner Goals Time Frame: Aug 21, 2023 Acute change in mental status: 0 Inattention: 0 Disorganized thinkin Altered level of consciousness: 0 Eating (QC): 6 Oral Hygiene (QC): 6 Toileting Hygiene (QC): 6 Shower/Bathe Self (QC): 5 Upper Body Dressing (QC): 5 Lower Body Dressing (QC): 5 On/Off Footwear (QC): 3 Additional Goals: 1-Demonstrate ADL Tasks, 2-Verbalize Understanding, 3- ImproveStrength/Pepe 1=Demonstrate adherence to instructed precautions during ADL tasks. 2=Patient will verbalize/demonstrate understanding of assistive devices/modifications for ADL. 3=Patient will improve strength/tolerance for activity to enable patient to perform ADL's. OT Education/Plan Problem List/Assessment Assessment: Decreased Activ Tolerance, Decreased UE Strength, Impaired Funct Balance, Impaired I ADL's, Impaired Self-Care Skills Discharge Recommendations Plan/Recommendations: Continue POC Treatment Plan/Plan of Care Patient would benefit from OT for education, treatment and training to promote independence in ADL's, mobility, safety and/or upper extremity function for ADL's. Plan of Care: ADL Retraining, Functional Mobility, Group Exercise/Act as Ind, UE Funct Exercise/Act Treatment Duration: Aug 21, 2023 Frequency: At least 5 of 7 days/Wk (IRF) Estimated Hrs Per Day: 1 hour per day Agreement: Yes Rehab Potential: Fair Time Start Time: 08:00 Stop Time: 09:30 DATE: Aug 06, 2023 Total Time Billed (hr/min): 90 Billed Treatment Time cotreat x90' 1, FA 6 ROHITH BLANTON OT Aug 06, 2023 10:02
--- NOTE | 2023-08-06 13:14 | Physical Therapy Daily Note ---
PT Daily Note-Current Subjective Pt is agreeable to PT. Denies pain. Pain Numeric Pain Scale: 0-No Pain Location: No Pain Reported Section J - Health Conditions 1. Rarely or not at all 2. Occasionally 3. Frequently 4. Almost constantly 8. Unable to answer Pain Effect on Sleep: 1 Pain Interference with Therapy: 1 Pain Interference w/Day-to-Day: 1 Mental Status Attachments: Oxygen (1.5L) Transfers SCALE: Activities may be completed with or without assistive devices. 5-Ghdegyocav-exhsbyi completes the activity by him/herself with no assistance from a helper. 5-Set-up or Clean-up Assistance-helper sets up or cleans up; patient completes activity. [place] assists only prior to or following the activity. 4-Supervision or Touching Assistance-helper provides verbal cues and/or touching/steadying and/or contact guard assistance as patient completes activity. Assistance may be provided throughout the activity or intermittently. 3-Partial/Moderate Assistance-helper does LESS THAN HALF the effort. [place] lifts, holds or supports trunk or limbs, but provides less than half the effort. 2-Substantial/Maximal Assistance-helper does MORE THAN HALF the effort. [place] lifts or holds trunk or limbs and provides more than half the effort. 3-Eawkddssb-qtxnhj does ALL the effort. Patient does none of the effort to complete the activity. Or, the assistance of 2 or more helpers is required for the patient to complete the activity. If activity was not attempted, code reason: 7-Patient Refused. 9-Not Applicable-not attempted and the patient did not perform the activity before the current illness, exacerbation or injury. 10-Not Attempted due to Environmental Limitations-(lack of equipment, weather restraints, etc.). 88-Not Attempted due to Medical Conditions or Safety Concerns. Roll Left & Right (QC): 4 Lying to Sitting/Side of Bed(Q: 4 (HOB elevated ) Sit to Stand (QC): 3 (Min/Mod A ) Chair/Gqs-vx-Eekib Xfer(QC): 3 (Min/Mod A ) Weight Bearing Right Lower Extremity: Right Weight Bearing/Tolerated Left Lower Extremity: Left Weight Bearing/Tolerated Gait Training Does the Patient Walk?: Yes Distance: 12ft; 24ft Walk 10 feet (QC): 3 Walk 50 ft with 2 Turns(QC): 88 Walk 150 ft (QC): 88 Walking 10ft/uneven surface-QC: 88 Gait Assistive Device: FWW Wheelchair Training Does the Pt Use a Wheelchair?: Yes Wheel 50 ft with 2 turns (QC): 5 Wheel 150 ft (QC): 5 Type of Wheelchair: Manual Treatments PT/OT co-tx from [id number], due to skill of 2 clinicians required which a rehab technician could not perform in order to coordinate UE/LEs, decrease fall risk, and due to pt's limitations in strength, activity tolerance, mobility and transfers. PT focused on bed mobility, LE placement, gross overall movement, w/c mobility, transfers, walking, and overall functional mobility, while OT focused on UE placement, ADLs, and cues for sequencing and safety. Pt completed supine > sit with SBA (HOB elevated). Sit to stand lift was utilized for bed > w/c transfer. Pt pushed in w/c to 1st floor, then edu on going up/down ramp via w/c. Pt verbalized understanding but required hand over hand assistance at times/Min A. Pt pushed back to therapy gym via w/c. Pt completed sit to stand transfer x 2 with Min A and Mod v/c for correct technique. Pt ambulated 12ft and 24ft with the FWW and CGA/Min A and w/c follow. Pt required slight encouragement. Pt then completed seated balloon toss activity, using dowel ignacio in B UEs to "bat" at balloon, and used B LEs to kick balloon. Pt taken back to her room via w/c. Pt attempted to stand, requiring 3 attempts prior to attaining stand at FWW with Mod A, then pivoted over to sit in recliner with the FWW and Min A. Post tx, pt in recliner, call light in reach and all needs met. Assessment Current Status: Good Progress Pt tolerated PT well with good effort on this date; Pt is progressing well PT Functional Skills Tutor Goals Functional Skills Tutor Goals PT Functional Skills Tutor Goals Time Frame: Aug 17, 2023 Roll Left & Right (QC): 6 (in bed or recliner) Sit to Lying (QC): 6 (in bed or recliner.) Lying-Sitting on Side/Bed(QC): 4 Sit to Stand (QC): 4 Chair/Ewr-dd-Gvyqw Xfer(QC): 4 Toilet Transfer (QC): 4 Car Transfer (QC): 4 Does the Patient Walk: No and Walking Goal IS indicated Walk 10 feet (QC): 4 (with FWW or 4WW) Walk 50ft with 2 Turns (QC): 4 Walk 150 ft (QC): 9 Walking 10ft on Uneven Surface: 4 1 Step (curb) (QC): 3 4 Steps (QC): 9 12 Steps (QC): 9 Picking up an Object (QC): 4 Does the Pt use WC or Scooter?: Yes Wheel 50 feet with 2 turns (QC: 6 Type: Manual Wheel 150 feet: 6 Type: Manual PT Plan Problem List Problem List: Activity Tolerance, Functional Strength, Safety, Balance, Gait, Transfer, Bed Mobility, ROM Treatment/Plan Treatment Plan: Continue Plan of Care Treatment Plan: Bed Mobility, Education, Functional Activity Pepe, Functional Strength, Group Therapy, Gait, Safety, Therapeutic Exercise, Transfers, Other (W/C mobility) Treatment Duration: Aug 17, 2023 Frequency: At least 5 of 7 days/Wk (IRF) Estimated Hrs Per Day: 1.5 hours per day Patient and/or Family Agrees t: Yes Safety Risks/Education Patient Education: Gait Training, Transfer Techniques, Correct Positioning, W/C Management, Safety Issues Teaching Recipient: Patient Teaching Methods: Demonstration, Discussion Response to Teaching: Verbalize Understanding, Return Demonstration, Reinforcement Needed Discharge Recommendations Therapy Discharge Recommendati: 24 Hour Supervision (SNF) Discharge Status/Home Program Cont per POC Barriers to Progress B LE weakness; Self-limiting at times Target Placement SNF prior to returning home Time Time In: 800 Time Out: 930 DATE: Aug 06, 2023 Total Billed Treatment Time: 90 Total Billed Treatment 90 min total co-tx from [id number] 1 visit FA x 4 GT x 2 SCOTT ROBERTS PT Aug 06, 2023 13:14
[2023-08-06 19:27] VITALS: BP 129/65
[2023-08-07] MEDS: SUCRALFATE 1 GM TABLET PO SCH ×3 (01:30→12:28)
[2023-08-07] MEDS ORDERED: SUCR1TAB PO (05:08)
[2023-08-07] MEDS ORDERED: ROPI0.2533 PO (05:08)
[2023-08-07] MEDS ORDERED: PRD20T PO (05:08)
[2023-08-07] MEDS ORDERED: SENN-271 PO (05:08)
[2023-08-07] MEDS ORDERED: AMLO-250 PO (05:08)
[2023-08-07] MEDS ORDERED: SERT-413 PO (05:08)
[2023-08-07] MEDS ORDERED: METO50TA7 PO (05:08)
[2023-08-07] MEDS ORDERED: ACET325T49 PO (05:08)
[2023-08-07] MEDS ORDERED: MULT-1137 PO (05:08)
[2023-08-07] MEDS ORDERED: APIX5TAB PO (05:08)
[2023-08-07] MEDS ORDERED: MICO90PO TOP (05:08)
[2023-08-07] MEDS ORDERED: PANT40TA52 PO (05:08)
[2023-08-07] MEDS ORDERED: ONDA4TAB11 PO (05:08)
[2023-08-07] MEDS ORDERED: NICO1PAT34 TD (05:08)
[2023-08-07] MEDS ORDERED: LEVO125T PO (05:08)
--- NOTE | 2023-08-07 05:09 | Discharge Summary ---
Diagnosis/Chief Complaint Date of Admission Jul 26, 2023 at 11:50 Date of Discharge Discharge Date: Aug 07, 2023 Discharge Diagnosis Assessment: 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 on prednisone taper dose and will receives IVIG every 2 weeks Chronic atrial fibrillation Anemia requiring transfusion on 07/25/2023 On oral anticoagulation for stroke prophylaxis Hypertension GERD Recent hyponatremia Recent hypokalemia Obesity Severe constipation no BM for 9 days upon arrival Resolved Mild hyponatremia Plan: Bowel regimen PT and OT Home meds Prednisone taper dose Monitor closely 07/27/2023: Replace potassium Supportive care Fall risk 07/28/2023: Monitor hypoxia CXR and labs reviewed 07/29/2023: IVIG tomorrow Monitor closely 07/30/2023: IVIG today and Thursday Monitor closely 07/31/2023: Supportive care IVIG 08/01/2023: Supportive care Monitor closely 08/02/2023: Supportive care 08/03/2023: Restart Prednisone 08/04/2023: Await skilled care 08/05/2023: Monitor closely 08/06/2023: DC tomorrow to HI (1) CIDP (chronic inflammatory demyelinating polyneuropathy) Discharge Summary Discharge Physical Examination Allergies: Coded Allergies: azithromycin (Verified Allergy, Unknown, 07/26/23) SWELLING nickel (Verified Allergy, Unknown, 07/26/23) TENDERNESS AND REDNESS Vitals & I&Os Vital Signs Date Time Temp Pulse Resp B/P (MAP) Pulse Ox O2 Delivery O2 Flow Rate FiO2 08/07/23 19:37 Nasal Cannula 1.50 08/07/23 09:56 37.1 94 16 123/72 96 General Appearance: Alert, Oriented X3, Cooperative Respiratory: Clear to Auscultation Cardiovascular: Regular Rate Psych/Mental Status: Mental Status NL Hospital Course Lengthy an uneventful hospital course after she arrived for severe weakness from polyneuropathy. She did receive her IVIG as scheduled every 2 weeks without difficulty. She had no lab abnormalities. Bowel regimen initiated regaining normal function. No falls occurred. Patient continued to need to sit to stand and lives alone and had no other help so she was deemed needing a care home and she was placed in [facility] and rehab. Labs (last 24 hrs) Laboratory Tests 07/27/23 06:15: White Blood Count 6.4, Red Blood Count 3.35L, Hemoglobin 11.0L, Hematocrit 33L, Mean Corpuscular Volume 97, Mean Corpuscular Hemoglobin 33, Mean Corpuscular Hemoglobin Concent 34, Red Cell Distribution Width 19.7H, Platelet Count 204, Mean Platelet Volume 9.3, Immature Granulocyte % (Auto) 1, Neutrophils (%) (Auto) 66, Lymphocytes (%) (Auto) 26, Monocytes (%) (Auto) 6, Eosinophils (%) (Auto) 1, Basophils (%) (Auto) 0, Neutrophils # (Auto) 4.3, Lymphocytes # (Auto) 1.7, Monocytes # (Auto) 0.4, Eosinophils # (Auto) 0.0, Basophils # (Auto) 0.0, Immature Granulocyte # (Auto) 0.1, Sodium Level 133L, Potassium Level 3.3L, Chloride Level 92L, Carbon Dioxide Level 32, Anion Gap 9, Blood Urea Nitrogen 15, Creatinine 0.86, Estimat Glomerular Filtration Rate 75, BUN/Creatinine Ratio 17, Glucose Level 78, Calcium Level 9.0, Corrected Calcium 9.6, Total Bilirubin 0.6, Aspartate Amino Transf (AST/SGOT) 40H, Alanine Aminotransferase (ALT/SGPT) 21, Alkaline Phosphatase 88, Total Protein 8.6H, Albumin 3.3 07/28/23 09:25: White Blood Count 7.4, Red Blood Count 3.34L, Hemoglobin 10.7L, Hematocrit 32L, Mean Corpuscular Volume 96, Mean Corpuscular Hemoglobin 32, Mean Corpuscular Hemoglobin Concent 33, Red Cell Distribution Width 18.6H, Platelet Count 177, Mean Platelet Volume 8.9L, Immature Granulocyte % (Auto) 1, Neutrophils (%) (Auto) 64, Lymphocytes (%) (Auto) 26, Monocytes (%) (Auto) 6, Eosinophils (%) (Auto) 3, Basophils (%) (Auto) 1, Neutrophils # (Auto) 4.7, Lymphocytes # (Auto) 2.0, Monocytes # (Auto) 0.4, Eosinophils # (Auto) 0.2, Basophils # (Auto) 0.0, Immature Granulocyte # (Auto) 0.1, Sodium Level 133L, Potassium Level 3.0L, Chloride Level 91L, Carbon Dioxide Level 33H, Anion Gap 9, Blood Urea Nitrogen 15, Creatinine 0.83, Estimat Glomerular Filtration Rate 78, BUN/Creatinine Ratio 18, Glucose Level 91, Calcium Level 8.2L, Corrected Calcium 9.0, Total Bilirubin 0.6, Aspartate Amino Transf (AST/SGOT) 32, Alanine Aminotransferase (ALT/SGPT) 19, Alkaline Phosphatase 85, Total Protein 7.7, Albumin 3.0L 07/28/23 10:00: Blood Gas Puncture Site LEFT RADIAL, Blood Gas Patient Temperature 35.1, Arterial Blood pH 7.51H, Arterial Blood Partial Pressure CO2 42, Arterial Blood Partial Pressure O2 88, Arterial Blood HCO3 34H, Arterial Blood Total CO2 35.0H, Arterial Blood Oxygen Saturation 98, Arterial Blood Base Excess 9.6H, Matheus Test POSITIVE, Blood Gas Ventilator Setting NO, Blood Gas Inspired Oxygen 2.5 L 07/30/23 07:55: White Blood Count 5.5, Red Blood Count 2.92L, Hemoglobin 9.8L, Hematocrit 29L, Mean Corpuscular Volume 100H, Mean Corpuscular Hemoglobin 34, Mean Corpuscular Hemoglobin Concent 34, Red Cell Distribution Width 18.6H, Platelet Count 131, Mean Platelet Volume 9.1, Immature Granulocyte % (Auto) 0, Neutrophils (%) (Aut o) 65, Lymphocytes (%) (Auto) 27, Monocytes (%) (Auto) 5, Eosinophils (%) (Auto) 3, Basophils (%) (Auto) 1, Neutrophils # (Auto) 3.6, Lymphocytes # (Auto) 1.5, Monocytes # (Auto) 0.3, Eosinophils # (Auto) 0.2, Basophils # (Auto) 0.0, Immature Granulocyte # (Auto) 0.0, Sodium Level 132L, Potassium Level 4.1, Chloride Level 91L, Carbon Dioxide Level 34H, Anion Gap 7, Blood Urea Nitrogen 16, Creatinine 0.75, Estimat Glomerular Filtration Rate 88, BUN/Creatinine Ratio 21, Glucose Level 82, Calcium Level 8.5, Corrected Calcium 9.3, Total Bilirubin 0.5, Aspartate Amino Transf (AST/SGOT) 22, Alanine Aminotransferase (ALT/SGPT) 15, Alkaline Phosphatase 74, Total Protein 7.5, Albumin 3.0L, Magnesium Level 1.8 08/03/23 05:30: White Blood Count 3.3L, Red Blood Count 2.64L, Hemoglobin 9.4L, Hematocrit 26L, Mean Corpuscular Volume 100H, Mean Corpuscular Hemoglobin 36H, Mean Corpuscular Hemoglobin Concent 36, Red Cell Distribution Width 18.6H, Platelet Count 140, Mean Platelet Volume 9.3, Immature Granulocyte % (Auto) 0, Neutrophils (%) (Auto) 39L, Lymphocytes (%) (Auto) 44, Monocytes (%) (Auto) 13H, Eosinophils (%) (Auto) 3, Basophils (%) (Auto) 2, Neutrophils # (Auto) 1.3L, Lymphocytes # (Auto) 1.4, Monocytes # (Auto) 0.4, Eosinophils # (Auto) 0.1, Basophils # (Auto) 0.1, Immature Granulocyte # (Auto) 0.0, Sodium Level 128L, Potassium Level 3.8, Chloride Level 92L, Carbon Dioxide Level 29, Anion Gap 7, Blood Urea Nitrogen 12, Creatinine 0.65, Estimat Glomerular Filtration Rate 98, BUN/Creatinine Ratio 18, Glucose Level 80, Calcium Level 8.4L, Corrected Calcium 9.3, Total Bilirubin 0.4, Aspartate Amino Transf (AST/SGOT) 29, Alanine Aminotransferase (ALT/SGPT) 16, Alkaline Phosphatase 76, Total Protein 8.2, Albumin 2.9L Pending Labs Laboratory Tests 07/27/23 06:15: White Blood Count 6.4, Red Blood Count 3.35, Hemoglobin 11.0, Hematocrit 33, Mean Corpuscular Volume 97, Mean Corpuscular Hemoglobin 33, Mean Corpuscular Hemoglobin Concent 34, Red Cell Distribution Width 19.7, Platelet Count 204, Mean Platelet Volume 9.3, Immature Granulocyte % (Auto) 1, Neutrophils (%) (Auto) 66, Lymphocytes (%) (Auto) 26, Monocytes (%) (Auto) 6, Eosinophils (%) (Auto) 1, Basophils (%) (Auto) 0, Neutrophils # (Auto) 4.3, Lymphocytes # (Auto) 1.7, Monocytes # (Auto) 0.4, Eosinophils # (Auto) 0.0, Basophils # (Auto) 0.0, Immature Granulocyte # (Auto) 0.1, Sodium Level 133, Potassium Level 3.3, Chloride Level 92, Carbon Dioxide Level 32, Anion Gap 9, Blood Urea Nitrogen 15, Creatinine 0.86, Estimat Glomerular Filtration Rate 75, BUN/Creatinine Ratio 17, Glucose Level 78, Calcium Level 9.0, Corrected Calcium 9.6, Total Bilirubin 0.6, Aspartate Amino Transf (AST/SGOT) 40, Alanine Aminotransferase (ALT/SGPT) 21, Alkaline Phosphatase 88, Total Protein 8.6, Albumin 3.3 07/28/23 09:25: White Blood Count 7.4, Red Blood Count 3.34, Hemoglobin 10.7, Hematocrit 32, Mean Corpuscular Volume 96, Mean Corpuscular Hemoglobin 32, Mean Corpuscular Hemoglobin Concent 33, Red Cell Distribution Width 18.6, Platelet Count 177, Mean Platelet Volume 8.9, Immature Granulocyte % (Auto) 1, Neutrophils (%) (Auto) 64, Lymphocytes (%) (Auto) 26, Monocytes (%) (Auto) 6, Eosinophils (%) (Auto) 3, Basophils (%) (Auto) 1, Neutrophils # (Auto) 4.7, Lymphocytes # (Auto) 2.0, Monocytes # (Auto) 0.4, Eosinophils # (Auto) 0.2, Basophils # (Auto) 0.0, Immature Granulocyte # (Auto) 0.1, Sodium Level 133, Potassium Level 3.0, Chloride Level 91, Carbon Dioxide Level 33, Anion Gap 9, Blood Urea Nitrogen 15, Creatinine 0.83, Estimat Glomerular Filtration Rate 78, BUN/Creatinine Ratio 18, Glucose Level 91, Calcium Level 8.2, Corrected Calcium 9.0, Total Bilirubin 0.6, Aspartate Amino Transf (AST/SGOT) 32, Alanine Aminotransferase (ALT/SGPT) 19, Alkaline Phosphatase 85, Total Protein 7.7, Albumin 3.0 07/28/23 10:00: Blood Gas Puncture Site LEFT RADIAL, Blood Gas Patient Temperature 35.1, Arterial Blood pH 7.51, Arterial Blood Partial Pressure CO2 42, Arterial Blood Partial Pressure O2 88, Arterial Blood HCO3 34, Arterial Blood Total CO2 35.0, Arterial Blood Oxygen Saturation 98, Arterial Blood Base Excess 9.6, Matheus Test POSITIVE, Blood Gas Ventilator Setting NO, Blood Gas Inspired Oxygen 2.5 L 07/30/23 07:55: White Blood Count 5.5, Red Blood Count 2.92, Hemoglobin 9.8, Hematocrit 29, Mean Corpuscular Volume 100, Mean Corpuscular Hemoglobin 34, Mean Corpuscular Hemoglobin Concent 34, Red Cell Distribution Width 18.6, Platelet Count 131, Mean Platelet Volume 9.1, Immature Granulocyte % (Auto) 0, Neutrophils (%) (Auto) 65, Lymphocytes (%) (Auto) 27, Monocytes (%) (Auto) 5, Eosinophils (%) (Auto) 3, Basophils (%) (Auto) 1, Neutrophils # (Auto) 3.6, Lymphocytes # (Auto) 1.5, Monocytes # (Auto) 0.3, Eosinophils # (Auto) 0.2, Basophils # (Auto) 0.0, Immature Granulocyte # (Auto) 0.0, Sodium Level 132, Potassium Level 4.1, Chloride Level 91, Carbon Dioxide Level 34, Anion Gap 7, Blood Urea Nitrogen 16, Creatinine 0.75, Estimat Glomerular Filtration Rate 88, BUN/Creatinine Ratio 21, Glucose Level 82, Calcium Level 8.5, Corrected Calcium 9.3, Total Bilirubin 0.5, Aspartate Amino Transf (AST/SGOT) 22, Alanine Aminotransferase (ALT/SGPT) 15, Alkaline Phosphatase 74, Total Protein 7.5, Albumin 3.0, Magnesium Level 1.8 08/03/23 05:30: White Blood Count 3.3, Red Blood Count 2.64, Hemoglobin 9.4, Hematocrit 26, Mean Corpuscular Volume 100, Mean Corpuscular Hemoglobin 36, Mean Corpuscular Hemoglobin Concent 36, Red Cell Distribution Width 18.6, Platelet Count 140, Mean Platelet Volume 9.3, Immature Granulocyte % (Auto) 0, Neutrophils (%) (Auto) 39, Lymphocytes (%) (Auto) 44, Monocytes (%) (Auto) 13, Eosinophils (%) (Auto) 3, Basophils (%) (Auto) 2, Neutrophils # (Auto) 1.3, Lymphocytes # (Auto) 1.4, Monocytes # (Auto) 0.4, Eosinophils # (Auto) 0.1, Basophils # (Auto) 0.1, Immature Granulocyte # (Auto) 0.0, Sodium Level 128, Potassium Level 3.8, Chloride Level 92, Carbon Dioxide Level 29, Anion Gap 7, Blood Urea Nitrogen 12, Creatinine 0.65, Estimat Glomerular Filtration Rate 98, BUN/Creatinine Ratio 18, Glucose Level 80, Calcium Level 8.4, Corrected Calcium 9.3, Total Bilirubin 0.4, Aspartate Amino Transf (AST/SGOT) 29, Alanine Aminotransferase (ALT/SGPT) 16, Alkaline Phosphatase 76, Total Protein 8.2, Albumin 2.9 Discharge Home Medications: Active Scripts Active Tab-A-Shaye Multivit with Iron (Multivitamin/Iron/Folic Acid) 18 Mg Iron-400 Mcg Tablet 1 Ea PO DAILY@0700 Lotrimin AF (Miconazole Nitrate) 2 % Powder 0 Gm TOP BID bid Synthroid (Levothyroxine Sodium) 125 Mcg Tablet 125 Mcg PO DAILY@0630 Prednisone 20 Mg Tab 20 Mg PO DAILY Pantoprazole Sodium 40 Mg Tablet.dr 40 Mg PO DAILY@0600 Sucralfate 1 Gram Tablet 1 Gm PO AC Ondansetron Odt (Ondansetron) 4 Mg Tab.rapdis 4 Mg PO Q6H PRN Stool Softener-Laxative Tablet (Sennosides/Docusate Sodium) 8.6 Mg-50 Mg Tablet 1 Ea PO BID Ropinirole HCl 0.25 Mg Tablet 0.5 Mg PO TID Sertraline HCl 50 Mg Tablet 100 Mg PO DAILY Acetaminophen 325 Mg Tablet 650 Mg PO Q6H PRN Amlodipine Besylate 5 Mg Tablet 5 Mg PO DAILY Metoprolol Succinate 50 Mg Tab.er.24h 50 Mg PO DAILY Eliquis (Apixaban) 5 Mg Tablet 5 Mg PO BID Nicoderm Cq (Nicotine) 21 Mg/24 Hour Patch.td24 21 Mg TD DAILY@0900 Reported Gamunex-C (Immune Glob,Anisa Caprylate(IgG)) 40 Gram/400 Ml (10 %) Vial 40 Gm IJ DUNCAN&FRI Q2 WEEKS TAKES 10GM AND 40GM TO EQUAL 50GM Gamunex-C (Immune Glob,Anisa Caprylate(IgG)) 10 Gram/100 Ml (10 %) Vial 10 Gm IJ DUNCAN&FRI [id number] TAKES 10GM AND 40GM TO EQUAL 50GM Instructions to patient/family Please see electronic discharge instructions given to patient. Diagnosis/Problems Diagnosis/Problems (1) CIDP (chronic inflammatory demyelinating polyneuropathy) KONG TY DO Aug 07, 2023 05:09
--- NOTE | 2023-08-07 05:09 | Discharge Inst-Skilled Nursing ---
Discharge Inst-Skilled NF Reconcile Patient Problems Problems Reviewed?: Yes Patient Instructions Patient Problems: Polyneuropathy Weakness Consult/Follow Up/Orders Follow Up Appt.: PCP [place] rounds Skilled NF Admit to: Certification (SNF) I certify that SNF services are required to be given on an inpatient basis because of the above named patient's need for fci care on a continuing basis for the conditions(s) for which he/she was receiving inpatient hospital services prior to his/her transfer to the SNF. Halfway Facility Order: Nursing Services, Oracle Sql Developer-Evaluate & Treat, Physical Therapy-Evaluate & Treat Oxygen Delivery Method: Nasal Cannula Discharge Diet: No Restrictions New & Resume Previous Orders New Medications: Acetaminophen (Acetaminophen) 325 Mg Tablet 650 MG PO Q6H PRN for PAIN-MILD (1-4), #30 TAB Amlodipine Besylate (Amlodipine Besylate) 5 Mg Tablet 5 MG PO DAILY, #30 TAB Apixaban (Eliquis) 5 Mg Tablet 5 MG PO BID, #60 TAB Levothyroxine Sodium (Synthroid) 125 Mcg Tablet 125 MCG PO DAILY@0630, #30 TAB Metoprolol Succinate (Metoprolol Succinate) 50 Mg Tab.er.24h 50 MG PO DAILY, #30 TAB Miconazole Nitrate (Lotrimin AF) 2 % Powder 0 GM TOP BID, #1 EA bid Multivitamin/Iron/Folic Acid (Tab-A-Shaye Multivit with Iron) 18 Mg Iron-400 Mcg Tablet 1 EA PO DAILY@0700, #30 TAB Nicotine (Nicoderm Cq) 21 Mg/24 Hour Patch.td24 21 MG TD DAILY@0900, #30 PATCH Ondansetron (Ondansetron Odt) 4 Mg Tab.rapdis 4 MG PO Q6H PRN for NAUSEA/VOMITING-1ST LINE, #10 TAB Pantoprazole Sodium (Pantoprazole Sodium) 40 Mg Tablet.dr 40 MG PO DAILY@0600, #30 TAB Prednisone (Prednisone) 20 Mg Tab 20 MG PO DAILY, #4 TAB Ropinirole HCl (Ropinirole HCl) 0.25 Mg Tablet 0.5 MG PO TID, #90 TAB Sennosides/Docusate Sodium (Stool Softener-Laxative Tablet) 8.6 Mg-50 Mg Tablet 1 EA PO BID, #60 TAB Sertraline HCl (Sertraline HCl) 50 Mg Tablet 100 MG PO DAILY, #30 TAB Sucralfate (Sucralfate) 1 Gram Tablet 1 GM PO AC, #90 TAB Continued Medications: Immune Glob,Anisa Caprylate(IgG) (Gamunex-C) 10 Gram/100 Ml (10 %) Vial 10 GM IJ DUNCAN&FRI [id number] TAKES 10GM AND 40GM TO EQUAL 50GM Immune Glob,Anisa Caprylate(IgG) (Gamunex-C) 40 Gram/400 Ml (10 %) Vial 40 GM IJ DUNCAN&FRI Q2 WEEKS TAKES 10GM AND 40GM TO EQUAL 50GM Discontinued Medications: Amlodipine Besylate (Amlodipine Besylate) 5 Mg Tablet 5 MG PO DAILY PRN for BLOOD PRESSURE, TAB Levothyroxine Sodium (Levothyroxine) 125 Mcg Capsule 125 MCG PO DAILY @0600, CAP LAST FILLED 01-25-2023 #30/30 DAY SUPPLY Ropinirole HCl (Ropinirole HCl) 0.5 Mg Tablet 0.5 MG PO TID PRN for RLS, TAB Sertraline HCl (Sertraline HCl) 50 Mg Tablet 100 MG PO DAILY, TAB LAST FILLED 03-20-2023 #60/30 DAY SUPPLY TAKES 2 (50MG) TABS Beth Schofield Aug 07, 2023 05:08 BETH SCHOFIELD DO Aug 07, 2023 05:09
[2023-08-07] MEDS: LEVOTHYROXINE 125 MCG TABLET PO SCH (05:59)
[2023-08-07] MEDS: THERAPEUTIC MULTIVITAMIN W/MINERALS TABLET PO SCH (05:59)
[2023-08-07] MEDS: PANTOPRAZOLE 40 MG TABLET PO SCH (05:59)
[2023-08-07] MEDS: ACETAMINOPHEN 325 MG TABLET PO PRN (06:05)
[2023-08-07] MEDS: CATHETER FLUSH 10 ML SYR IVP SCH ×2 (06:05→13:03)
[2023-08-07 07:35] VITALS: BP 123/72
[2023-08-07] MEDS: NICOTINE 21 MG PATCH TD SCH (08:16)
[2023-08-07] MEDS: POTASSIUM BICARB 20 MEQ effervescent TABLET PO SCH ×2 (08:16→12:28)
[2023-08-07] MEDS: NICOTINE PATCH REMOVAL TP SCH (08:17)
[2023-08-07] MEDS: rOPINIRole 0.25 MG TABLET PO SCH ×2 (08:17→12:28)
[2023-08-07] MEDS: APIXABAN 5 MG TABLET PO SCH (08:17)
[2023-08-07] MEDS: amLODIPine 5 MG TABLET PO SCH (08:17)
[2023-08-07] MEDS: predniSONE 20 MG TABLET PO SCH (08:17)
[2023-08-07] MEDS: SERTRALINE 50 MG TABLET PO SCH (08:17)
[2023-08-07] MEDS: SENNA W/DOCUSATE TABLET PO SCH (08:18)
[2023-08-07] MEDS: DOCUSATE SODIUM 100 MG CAPSULE PO SCH (08:18)
[2023-08-07] MEDS: MICONAZOLE 2% POWDER 90 GM TOP SCH (08:18)
--- NOTE | 2023-08-07 09:47 | Therapy Team Discharge Summary ---
Therapy Discharge Summary Discharge Recommendations Date of Discharge Physical Therapy Roll Left to Right (QC): 4 Sit to Lying (QC): 3 (Min A ) Lying to Sitting/Side of Bed(Q: 4 (HOB elevated ) Sit to Stand (QC): 3 (Min/Mod A ) Chair/Kmn-nu-Ubbcs Xfer(QC): 3 (Min/Mod A ) Toilet Transfer (QC): 1 Car Transfer (QC): 88 Does the Patient Walk: Yes Mode of Locomotion: Both Anticipated Mode of Locomotion: Both Walk 10 feet (QC): 3 Walk 50 ft with 2 Turns(QC): 88 Walk 150 ft (QC): 88 Walking 10ft on uneven surface: 88 Distance: unable to ambulate at this time Gait Assistive Device: FWW Does the Pt Use a Wheelchair: Yes Wheelchair Distance: 60' x 2 Wheel 50 ft with 2 turns (QC): 5 Wheel 150 ft (QC): 5 Type of Wheelchair: Manual 1 Step (curb) (QC): 88 4 Steps (QC): 88 12 Steps (QC): 88 Balance Sitting Static: Fair Balance Sitting Dynamic: Poor Balance-Standing Static: Poor Picking up an Object (QC): 88 Occupational Therapy Pt admitted to ARU with AE CIPD. At PLOF, pt required some assistance with ADLs and functional mobility. Upon initial evaluation, pt required set up with eating, SBA oral care seated, min-mod A UE dressing and total assist with showering, LE dressing, toileting and footwear. Pt required use of sit to stand lift, or assist of 2 person at bed level for ADLS. OT tx focused on increasing BUE Strength and activity tolerance, and increasing safety and independence with ADLS and functional mobility. Pt made functional progress towards goals, but only attained IND level with oral care. At discharge, pt was able to housekeeping supervisor hotel parallel bars and with walker assist of 1-2 and perform some functional mobility with walker. Pt discharging to SNF for continued therapy, d/c from OT. Decreased Activ Tolerance, Decreased UE Strength, Impaired Funct Balance, Impaired I ADL's, Impaired Self-Care Skills Eating (QC): 5 Oral Hygiene (QC): 6 Shower/Bathe Self (QC): 1 (Total assist bed bath per RN) Upper Body Dressing (QC): 3 (Min A with eddie puente) Lower Body Dressing (QC): 1 (Sit to stand lift required) On/Off Footwear (QC): 1 Toileting Hygiene (QC): 1 (sit to stand lift required) PT Mcc Goals Mcc Goals PT Residential Life Director Goals Time Frame: Aug 17, 2023 Roll Left to Right (QC): 6 (in bed or recliner) Sit to Lying (QC): 6 (in bed or recliner.) Lying-Sitting on Side/Bed(QC): 4 Sit to Stand (QC): 4 Chair/Ndv-ec-Lgopg Xfer(QC): 4 Toilet/Commode Transfer (QC): 4 Car Transfer (QC): 4 Does the Patient Walk: No and Walking Goal IS indicated Walk 10 feet (QC): 4 (with FWW or 4WW) Walk 10ft-Uneven Surface(QC): 4 Walk 50ft with 2 Turns (QC): 4 Walk 150 ft (QC): 9 Does the Pt use WC or Scooter?: Yes Wheel 50 feet with 2 turns (QC: 6 Type: Manual Wheel 150 feet: 6 Type: Manual 1 Step (curb) (QC): 3 4 Steps (QC): 9 12 Steps (QC): 9 Picking up an Object (QC): 4 OT Residential Life Director Goals Residential Life Director Goals Time Frame: Aug 21, 2023 Acute change in mental status: 0 Inattention: 0 Disorganized thinkin Altered level of consciousness: 0 Eating (QC): 6 (not met) Oral Hygiene (QC): 6 (met) Toileting Hygiene (QC): 6 (not met) Shower/Bathe Self (QC): 5 (not met) Upper Body Dressing (QC): 5 (not met) Lower Body Dressing (QC): 5 (not met) On/Off Footwear (QC): 3 (not met) Additional Goals: 1-Demonstrate ADL Tasks, 2-Verbalize Understanding, 3- ImproveStrength/Pepe 1=Demonstrate adherence to instructed precautions during ADL tasks. 2=Patient will verbalize/demonstrate understanding of assistive devices/modifications for ADL. 3=Patient will improve strength/tolerance for activity to enable patient to perform ADL's. ROHITH BLANTON OT Aug 07, 2023 09:47
[2023-08-07 09:56] VITALS: BP 123/72
--- NOTE | 2023-08-10 10:33 | Therapy Team Discharge Summary ---
Therapy Discharge Summary Discharge Recommendations Date of Discharge Aug 07, 2023 at 16:45 Therapy D/C Recommendations: 24 hr Supervision Physical Therapy Pt is a 63 y/o female who was admitted to OSH with increased weakness x 2 weeks on 07/17/23. Pt transferred to [facility] 07/26/23. At [facility], pt was Mod I with the 4WW for short distances within the home and motorized scooter in the community. Upon PT eval, pt was Max A for bed mobility and dep for transfers with the sit to stand lift. Pt was SBA for w/c mobility. PT focused on B LE strength, bed mobility, transfers, standing, walking, balance/safety, endurance, and overall Ind. Pt progressed well with PT and met some set goals. Pt d/c to SNF, per request to get stronger, on 08/07/23; D/C from PT at this time. Roll Left to Right (QC): 6 Sit to Lying (QC): 3 (Min A ) Lying to Sitting/Side of Bed(Q: 4 (HOB elevated ) Sit to Stand (QC): 3 (Min/Mod A ) Chair/Xuj-mx-Arlkw Xfer(QC): 3 (Min/Mod A ) Toilet Transfer (QC): 9 Car Transfer (QC): 88 Does the Patient Walk: Yes Mode of Locomotion: Both Anticipated Mode of Locomotion: Both Walk 10 feet (QC): 3 Walk 50 ft with 2 Turns(QC): 88 Walk 150 ft (QC): 88 Walking 10ft on uneven surface: 88 Gait Assistive Device: FWW Does the Pt Use a Wheelchair: Yes Wheelchair Distance: 150ft Wheel 50 ft with 2 turns (QC): 5 Wheel 150 ft (QC): 5 Type of Wheelchair: Manual 1 Step (curb) (QC): 88 4 Steps (QC): 88 12 Steps (QC): 88 Walking Assistive Device: Walker Balance Sitting Static: Fair Balance Sitting Dynamic: Poor Balance-Standing Static: Poor Picking up an Object (QC): 88 Occupational Therapy Decreased Activ Tolerance, Decreased UE Strength, Impaired Funct Balance, Impaired I ADL's, Impaired Self-Care Skills Eating (QC): 5 Oral Hygiene (QC): 6 Shower/Bathe Self (QC): 1 (Total assist bed bath per RN) Upper Body Dressing (QC): 3 (Min A with donning cardigan) Lower Body Dressing (QC): 1 (Sit to stand lift required) On/Off Footwear (QC): 1 Toileting Hygiene (QC): 1 (sit to stand lift required) PT Manager Field Service Goals [facility] Goals PT Manager Field Service Goals Time Frame: Aug 17, 2023 Roll Left to Right (QC): 6 (in bed or recliner) Sit to Lying (QC): 6 (in bed or recliner.) Lying-Sitting on Side/Bed(QC): 4 Sit to Stand (QC): 4 Chair/Bza-pv-Tbpie Xfer(QC): 4 Toilet/Commode Transfer (QC): 4 Car Transfer (QC): 4 Does the Patient Walk: No and Walking Goal IS indicated Walk 10 feet (QC): 4 (with FWW or 4WW) Walk 10ft-Uneven Surface(QC): 4 Walk 50ft with 2 Turns (QC): 4 Walk 150 ft (QC): 9 Does the Pt use WC or Scooter?: Yes Wheel 50 feet with 2 turns (QC: 6 Type: Manual Wheel 150 feet: 6 Type: Manual 1 Step (curb) (QC): 3 4 Steps (QC): 9 12 Steps (QC): 9 Picking up an Object (QC): 4 OT Manager Field Service Goals Manager Field Service Goals Time Frame: Aug 21, 2023 Acute change in mental status: 0 Inattention: 0 Disorganized thinkin Altered level of consciousness: 0 Eating (QC): 6 (not met) Oral Hygiene (QC): 6 (met) Toileting Hygiene (QC): 6 (not met) Shower/Bathe Self (QC): 5 (not met) Upper Body Dressing (QC): 5 (not met) Lower Body Dressing (QC): 5 (not met) On/Off Footwear (QC): 3 (not met) Additional Goals: 1-Demonstrate ADL Tasks, 2-Verbalize Understanding, 3-Improve Strength/Pepe 1=Demonstrate adherence to instructed precautions during ADL tasks. 2=Patient will verbalize/demonstrate understanding of assistive devices/modifications for ADL. 3=Patient will improve strength/tolerance for activity to enable patient to pe rform ADL's. SCOTT ROBERTS PT Aug 10, 2023 10:33
== END 2023-08-07 16:45 | DRG 74 ==
PROVIDERS: ADMIT Internal Medicine; ATTEND Internal Medicine
DX: G61.81 Chronic inflammatory demyelinating polyneuritis (principal); I48.20 Chronic atrial fibrillation, unspecified; E87.1 Hypo-osmolality and hyponatremia; E87.6 Hypokalemia; Z91.81 History of falling; K59.00 Constipation, unspecified; R32 Unspecified urinary incontinence; E66.9 Obesity, unspecified; F41.9 Anxiety disorder, unspecified; F32.A Depression, unspecified; E78.00 Pure hypercholesterolemia, unspecified; I10 Essential (primary) hypertension; K21.9 Gastro-esophageal reflux disease without esophagitis; M79.7 Fibromyalgia; M19.90 Unspecified osteoarthritis, unspecified site; E03.9 Hypothyroidism, unspecified; Z68.34 Body mass index [BMI] 34.0-34.9, adult; Z79.01 Long term (current) use of anticoagulants; Z87.891 Personal history of nicotine dependence; Z79.899 Other long term (current) drug therapy; Z88.1 Allergy status to other antibiotic agents
CPT/HCPCS: 36415; 36600; 71045; 80053; 82805; 83735; 85025; 94760